=== PATIENT | female | born 1935 | race Hispanic/Latino ===

== ENCOUNTER 2017-04-14 12:57 | Emergency (ER) | payer MEDICARE ==
[~2017-04-14] VITALS: Ht 157.5 cm; Wt 67.6 kg
[~2017-04-14 12:57] MED LIST: AMIODARONE HCL200 MG PO; AMLODIPINE BESYL5 MG PO; ASPIRIN EC81 MG PO; ATORVASTATIN CA10 MG PO; ATORVASTATIN CA20 MG PO; CLOPIDOGREL75 MG PO; FENOFIBRATE134 MG PO; FUROSEMIDE40 MG PO; ISOSORBIDE DINIT5 MG PO; LASIX40 MG PO; LEVEMIR 3M100 UNITS/ SQ; LOSARTAN POTASS25 MG PO; METFORMIN HCL850 MG PO; METOPROLOL TAR100 MG PO; METOPROLOL TART25 MG PO; NITRO-DUR1 EAC1 TOP; NOVOLOG MI100 UNIT/1 SQ; PANTOPRAZOLE SO40 MG PO; SIMVASTATIN20 MG PO; VASCEPA; VASCEPA 1 GRAM PO; VASOTEC10 MG PO
[2017-04-14 15:04] LABS: BILIRUBIN,URINE NEGATIVE (NEGATIVE); CLARITY,URINE CLEAR (CLEAR); COLOR,URINE YELLOW (YELLOW); KETONES,URINE NEGATIVE (NEGATIVE); LEUKOCYTE ESTERASE ,URINE NEGATIVE (NEGATIVE); NITRITE,URINE NEGATIVE (NEGATIVE); URINE UROBILINOGEN 1 mg/dL (0.2 - 1)
[2017-04-14 15:10] LABS: PROTEIN,URINE DIPSTICK 1+ (NEGATIVE); RBC,URINE 0-5 /HPF (0-5); WBC,URINE (MAN) 0-5 /HPF (0-5)
[2017-04-14 15:11] LABS: EPITHELIAL CELLS,URINE FEW /LPF; MUCUS,URINE FEW (RARE)
[2017-04-14 15:29] LABS: BASOPHILS % 0.2 % (0.0-1.0); EOSINOPHILS % 0.1 % (0.0-6.0); HEMATOCRIT 39.8 % (34.2-44.1); HEMOGLOBIN 12.8 g/dL (12.0-16.0); LYMPHOCYTES # (AUTO) 0.9 (1.0-3.2); LYMPHOCYTES % 5.7 % (18.0-39.1); MEAN CORPUSCULAR HEMOGLOBIN 27.5 pg (28-32); MEAN CORPUSCULAR HGB CONC 32.2 g/dL (31-35); MEAN CORPUSCULAR VOLUME 85.4 fL (81-99); MONOCYTES # (AUTO) 0.7 (0.2-0.8); MONOCYTES % 4.2 % (4.4-11.3); NEUTROPHILS # (AUTO) 14.4 (2.1-6.9); NEUTROPHILS % 89.2 % (38.7-80.0); PLATELET COUNT 234 x10e3/uL (140-360); RED BLOOD COUNT 4.66 x10e6/uL (3.6-5.1); RED CELL DISTRIBUTION WIDTH 15.9 % (11.7-14.4)
[2017-04-14 15:43] LABS: PARTIAL THROMBOPLASTIN TIME 29.9 seconds (23.8-35.5); PROTHROMBIN TIME 13.7 seconds (11.9-14.5)
--- NOTE | 2017-04-14 15:44 | Diagnostic Imaging Report ---
Portable chest x-ray CPT code 60172 INDICATION: Chest pain, dizziness COMPARISON: Chest x-ray 06/05/2016 FINDINGS: Frontal view of the chest obtained at 1510 hours. The cardiac silhouette is enlarged and stable in morphology with dual-lead pacemaker wires and postoperative changes from bypass. The pulmonary vascular markings are prominent. The lungs demonstrate low lung volumes. Mild eventration of the right diaphragm is stable. The left diaphragm is poorly visualized. No airspace opacities in the upper lung zones. No large effusions. No pneumothorax. The osseous structures are stable. IMPRESSION: 1. Pulmonary vascular congestion. 2. Stable cardiomegaly, postoperative changes, and pacemaker. 3. Stable eventration of the right diaphragm. Retrocardiac airspace disease can be due to atelectasis or infiltrate. A small effusion cannot be excluded. Signed by: Dr. Suma Vanegas MD on 04/14/2017 3:40 PM
--- NOTE | 2017-04-14 15:45 | Diagnostic Imaging Report ---
Examination: CT BRAIN WITHOUT CONTRAST History:Dizziness. Nausea. Comparison studies:None Technique: Axial images were obtained from the skull base to the vertex. Coronal and sagittal images reconstructed from the axial data. Intravenous contrast: None Findings: Scalp: No abnormalities. Bones: No fractures, blastic or lytic lesions. Brain sulci: Mild volume loss for age. Ventricles: No hydrocephalus. Extra-axial space: No abnormalities. Parenchyma: Chronic lacunar infarcts in the anterior limb of the right internal capsule, left putamen and bilateral subinsular cortices. There are confluent areas of hypoattenuation in the periventricular and subcortical white matter, nonspecific. No masses, hemorrhage, or acute or chronic cortical based vascular insults. Sellar/suprasellar region: No abnormalities. Craniocervical junction: Patent foramen magnum. No Chiari one malformation. Incidental findings: Atherosclerotic calcification of the cavernous and supraclinoid internal carotid arteries. Impression: 1. No acute intracranial abnormalities. 2. Chronic lacunar infarcts, as above. 3. Mild chronic microvascular ischemic change and volume loss. Signed by: Dr. Brittany Díaz M.D. on 04/14/2017 3:41 PM
[2017-04-14] MEDS ORDERED: FUROSEMIDE INJ 10 MG/ML 4 ML VIAL IV ONE (18:30)
[2017-04-14 19:19] LABS: ALBUMIN 3.8 g/dL (3.5-5.0); ANION GAP 13.2 mmol/L (8-16); CALCIUM 8.9 mg/dL (8.4-10.2); CREATININE, SERUM 1.47 mg/dL (0.57-1.11)
[2017-04-14 19:22] LABS: POTASSIUM 5.2 mmol/L (3.5-5.1)
[2017-04-14 19:26] LABS: CREATINE KINASE MB 3.4 ng/mL (0.00-5.00); TROPONIN I 0.033 ng/mL (0-0.300)
[2017-04-14 19:50] VITALS: BP 172/69
== END 2017-04-14 20:19 | disposition home or self-care (01) ==
LOC: ER 12:57
DX: R06.09 Other forms of dyspnea (principal); I50.1 Left ventricular failure, unspecified; I27.9 Pulmonary heart disease, unspecified; I10 Essential (primary) hypertension; E11.9 Type 2 diabetes mellitus without complications; I25.10 Atherosclerotic heart disease of native coronary artery without angina pectoris
CPT/HCPCS: 36415; 70450; 71010; 80053; 81001; 82550; 82553; 83880; 84484; 85025; 85610; 85730; 87086; 93005; 99284; J1940

== ENCOUNTER 2017-04-18 17:01 | Inpatient (IN) | payer MEDICARE ==
[~2017-04-18] VITALS: Ht 157.5 cm; Wt 66.2 kg
[2017-04-18 18:16] LABS: BILIRUBIN,URINE NEGATIVE (NEGATIVE); KETONES,URINE NEGATIVE (NEGATIVE); LEUKOCYTE ESTERASE ,URINE 1+ (NEGATIVE); NITRITE,URINE NEGATIVE (NEGATIVE); PROTEIN,URINE DIPSTICK NEGATIVE (NEGATIVE); URINE UROBILINOGEN 0.2 mg/dL (0.2 - 1)
--- NOTE | 2017-04-18 18:22 | Diagnostic Imaging Report ---
PROCEDURE: X-RAY CHEST, ONE VIEW 1810 hrs. COMPARISON: Chest x-ray 04/14/17 INDICATIONS: CHEST PAIN FINDINGS: LUNGS: Eventration of the right diaphragm is stable. Baseline pulmonary hyperinflation is similar with diffuse bronchial wall thickening. Pulmonary vascular markings are prominent and similar to previous exam. There is no evidence of confluent infiltrate. There is mild interstitial edema. The left diaphragm is now visible. PLEURA: Mild blunting of the right lateral costophrenic angle. No pneumothorax. HEART \T\ MEDIASTINUM: Stable cardiomegaly and pacemaker. Stent in the upper mediastinum is stable. BONES \T\ SOFT TISSUES: Median sternotomy wires are intact. No new focal osseous lesions. Soft tissues are unremarkable. CONCLUSION: Stable cardiomegaly and pulmonary vascular congestion. Small right pleural effusion. Mild interstitial edema. Stable eventration of the right diaphragm. Dictated by: Suma Vanegas M.D. on 04/18/2017 at 18:30 Electronically approved by: Suma Vanegas M.D. on 04/18/2017 at 18:30
[2017-04-18 18:24] LABS: BASOPHILS % 0.3 % (0.0-1.0); EOSINOPHILS # (AUTO) 0.1 (0.0-0.4); EOSINOPHILS % 0.4 % (0.0-6.0); HEMATOCRIT 38.8 % (34.2-44.1); HEMOGLOBIN 12.2 g/dL (12.0-16.0); MEAN CORPUSCULAR HEMOGLOBIN 27.5 pg (28-32); MEAN CORPUSCULAR HGB CONC 31.4 g/dL (31-35); MEAN CORPUSCULAR VOLUME 87.4 fL (81-99); MONOCYTES # (AUTO) 1.1 (0.2-0.8); MONOCYTES % 7.2 % (4.4-11.3); NEUTROPHILS # (AUTO) 13.5 (2.1-6.9); NEUTROPHILS % 84.9 % (38.7-80.0); PLATELET COUNT 266 x10e3/uL (140-360); RED BLOOD COUNT 4.44 x10e6/uL (3.6-5.1)
[2017-04-18 18:33] LABS: INR 1.12
[2017-04-18 18:34] LABS: PARTIAL THROMBOPLASTIN TIME 35.4 seconds (23.8-35.5)
[2017-04-18 18:36] LABS: CLARITY,URINE CLEAR (CLEAR); COLOR,URINE YELLOW (YELLOW)
[2017-04-18 18:46] LABS: BACTERIA,URINE FEW /HPF; EPITHELIAL CELLS,URINE FEW /LPF; RBC,URINE 0-5 /HPF (0-5)
[2017-04-18 19:20] LABS: ALBUMIN 3.9 g/dL (3.5-5.0); ANION GAP 18.3 mmol/L (8-16); CALCIUM 8.9 mg/dL (8.4-10.2); CREATININE, SERUM 2.64 mg/dL (0.57-1.11)
[2017-04-18 19:23] LABS: POTASSIUM 6.3 mmol/L (3.5-5.1)
[2017-04-18 19:31] LABS: CREATINE KINASE MB 3.4 ng/mL (0.00-5.00); TROPONIN I 0.05 ng/mL (0-0.300)
[2017-04-19] MEDS ORDERED: CALCIUM CHLORIDE 10% 1.36 MEQ/ML 10ML SYR IV STA (00:20)
[2017-04-19] MEDS ORDERED: DEXTROSE 50% SYRINGE 50 ML IV STA (00:20)
[2017-04-19] MEDS ORDERED: SODIUM BICARBONATE 8.4% INJ 50 ML SYR IV STA (00:20)
[2017-04-19] MEDS ORDERED: ONDANSETRON HCL INJ 2 MG/ML VIAL IV STA (00:25)
[2017-04-19] MEDS ORDERED: CEFTRIAXONE SOD 1 GM VIAL IV STA (00:25)
[2017-04-19] MEDS ORDERED: FUROSEMIDE INJ 10 MG/ML 10 ML VIAL IV ONE (00:30)
[2017-04-19] MEDS ORDERED: INSULIN REGULAR, HUMAN 100 UNIT/1 ML 3ML VIAL IV ONE (00:30)
[2017-04-19] MEDS ORDERED: DEXTROSE 50% SYRINGE 50 ML IV PRN (00:45)
[2017-04-19] MEDS ORDERED: SODIUM CHLORIDE 0.9% 50ML 50 ML ONE (01:18)
[2017-04-19] MEDS: CEFTRIAXONE SOD 1 GM VIAL IV SCH (02:21)
[2017-04-19 04:40] VITALS: BP 125/56
[2017-04-19 04:45] VITALS: BP 125/56
[2017-04-19 04:52] LABS: CREATINE KINASE MB 2.2 ng/mL (0.00-5.00); TROPONIN I 0.044 ng/mL (0-0.300)
[2017-04-19] MEDS ORDERED: FUROSEMIDE INJ 10 MG/ML 4 ML VIAL IV SCH (06:00)
[2017-04-19] MEDS ORDERED: LEVOTHYROXINE50 MCG PO (07:11)
[2017-04-19] MEDS ORDERED: MECLIZINE HCL12.5 MG PO (07:11)
[2017-04-19] MEDS: INSULIN REGULAR, HUMAN 100 UNIT/1 ML 3ML VIAL SQ SCH ×4 (07:30→21:04)
[2017-04-19 07:51] VITALS: BP 142/61
[2017-04-19 08:51] LABS: POTASSIUM 5.5 mmol/L (3.5-5.1)
[2017-04-19 09:24] LABS: ALBUMIN 3.5 g/dL (3.5-5.0); ANION GAP 18.5 mmol/L (8-16); CALCIUM 9.1 mg/dL (8.4-10.2); CREATININE, SERUM 2.53 mg/dL (0.57-1.11)
[2017-04-19 09:35] LABS: HEMOGLOBIN 10.7 g/dL (12.0-16.0); MEAN CORPUSCULAR HEMOGLOBIN 27.7 pg (28-32); MEAN CORPUSCULAR HGB CONC 31.5 g/dL (31-35); MEAN CORPUSCULAR VOLUME 88.1 fL (81-99); PLATELET COUNT 195 x10e3/uL (140-360); RED BLOOD COUNT 3.86 x10e6/uL (3.6-5.1); RED CELL DISTRIBUTION WIDTH 16.1 % (11.7-14.4)
[2017-04-19 11:42] LABS: ANION GAP 17.6 mmol/L (8-16); CREATININE, SERUM 2.42 mg/dL (0.57-1.11); POTASSIUM 5.6 mmol/L (3.5-5.1)
[2017-04-19 11:50] LABS: CREATINE KINASE MB 1.7 ng/mL (0.00-5.00); TROPONIN I 0.048 ng/mL (0-0.300)
[2017-04-19] MEDS ORDERED: SOD POLYSTYRENE SULFONATE SUSP 15 GM/60 ML BTL PR ONE (12:00)
[2017-04-19 12:27] LABS: EOSINOPHILS % (MANUAL) 2 % (0-7); LYMPHOCYTES % (MANUAL) 9 % (19-48); MONOCYTES % (MANUAL) 3 % (3.4-9.0); NEUTROPHILS % (MANUAL) 86 % (40-74); RBC MORPHOLOGY COMMENT NORMAL
[2017-04-19 12:28] LABS: PLATELET ESTIMATE ADEQUATE; PLATELET MORPHOLOGY COMMENT NORMAL
--- NOTE | 2017-04-19 12:32 | History and Physical ---
CHIEF COMPLAINT: Fluid overload with elevated potassium, acute kidney injury on chronic kidney disease, urinary tract infection, and generalized weakness. HISTORY OF PRESENT ILLNESS: This is a 81-year-old female with history of coronary artery bypass surgery who came into the hospital because of increasing shortness of breath for the past for 7 days. She stated that she was having progressive shortness of breath. The patient also has hypoxia with oxygen saturation below 90%. She at baseline with systolic congestive heart failure. She had AICD. She also had recent coronary artery bypass surgery. The patient is stable. In the emergency room, lab work showed her white cell count was 15.8 thousand. She had a chemistry panel with low sodium of 128 and potassium of 6.3. BUN and creatinine were 49 and 2.6 respectively. The patient also had 1+ leukocyte esterase with WBCs in the urine. Her imaging in the emergency room showed that she has pleural effusion and interstitial edema. The patient is stable, admitted and Lopez catheter in place. PAST MEDICAL HISTORY: Diabetes type 2, hypertension with congestive heart failure, history of AL and bypass surgery, coronary artery disease, hyperlipidemia, cardiomyopathy and hypothyroidism. HOME MEDICATIONS: Amiodarone, Lipitor, furosemide, levothyroxine, losartan, meclizine, metoprolol tartrate and . PAST SURGICAL HISTORY: AICD. Coronary artery bypass surgery. Coronary stent. Left salpingo-oophorectomy. SOCIAL HISTORY: Patient does not smoke or use alcohol. No recreational drugs. ALLERGIES: NO KNOWN DRUG ALLERGIES. PHYSICAL EXAMINATION: GENERAL: The patient is not in acute distress. He is awake. VITAL SIGNS: Temperature is 98. Blood pressure 142/61. Pulse rate 60. Respirations 18. HEENT: Normocephalic, atraumatic, anicteric. NECK: Positive JVD. PULMONARY: Bilateral rales at the bases. Sternal scar. AICD. ABDOMEN: Soft and unremarkable. EXTREMITIES: 1+ edema. NEUROLOGIC: No focal deficit. LABORATORY: Sodium is 128. Potassium 3.3, chloride 99, bicarb 37, BUN 29, creatinine 2.6. Glucose is 250. Coagulation: INR is 1.1. CBC: WBC 16, hemoglobin 12, hematocrit 38, platelets 266,00. Urinalysis with 1+ leukocyte esterase. Chest x-ray showed interstitial edema. IMPRESSION: 1. Acute on chronic systolic dysfunction. Congestive heart failure. 2. Urinary tract infection. 3. Acute kidney injury with hyperkalemia associated with chronic kidney disease, stage not know. 4. Multiple chronic baseline problems including coronary artery disease with recent coronary artery bypass surgery, AICD placement. PLAN: 1. Antibiotics. 2. Diurese the patient. 3. Home medication adjustment. Adjust medication to prevent recurrent high potassium. 4. Monitor the patient closely. 5. DVT prophylaxis. 6. Home medications revised. 1. Incentive spirometry. 8. Monitor the patient's oxygen saturation. Job#: [id number] GH
[2017-04-19] MEDS ORDERED: LACTULOSE SYRUP 20 GM/30 ML UDC PO ONE (12:45)
[2017-04-19] MEDS ORDERED: SOD POLYSTYRENE SULFONATE SUSP 15 GM/60 ML BTL PO ONE (12:45)
[2017-04-19 13:08] VITALS: BP 125/61
[2017-04-19] MEDS: FUROSEMIDE INJ 10 MG/ML 4 ML VIAL IV SCH ×2 (14:00→21:04)
[2017-04-19] MEDS: MECLIZINE HCL 12.5 MG TAB PO SCH ×2 (15:00→21:03)
[2017-04-19] MEDS: AMIODARONE HCL 200 MG TAB PO SCH (17:00)
[2017-04-19] MEDS: METOPROLOL TARTRATE 25 MG TAB PO SCH (17:00)
[2017-04-19 17:34] VITALS: BP 107/52
[2017-04-19 20:00] VITALS: BP 126/58
[2017-04-19] MEDS: ATORVASTATIN 10 MG TAB PO SCH (21:03)
[2017-04-20] VITALS: BP_SYST 114; BP_SYST 137; BP_DIAS 53; BP_DIAS 61
[2017-04-20] MEDS: CEFTRIAXONE SOD 1 GM VIAL IV SCH (01:47)
[2017-04-20] MEDS: LEVOTHYROXINE SODIUM 50 MCG TAB PO SCH (05:48)
[2017-04-20] MEDS: FUROSEMIDE INJ 10 MG/ML 4 ML VIAL IV SCH ×3 (05:48→22:11)
[2017-04-20] MEDS: INSULIN REGULAR, HUMAN 100 UNIT/1 ML 3ML VIAL SQ SCH ×4 (07:30→22:12)
[2017-04-20 07:45] LABS: BASOPHILS % 0.4 % (0.0-1.0); EOSINOPHILS # (AUTO) 0.2 (0.0-0.4); EOSINOPHILS % 1.9 % (0.0-6.0); HEMATOCRIT 32.5 % (34.2-44.1); HEMOGLOBIN 10.3 g/dL (12.0-16.0); LYMPHOCYTES # (AUTO) 0.8 (1.0-3.2); LYMPHOCYTES % 9.1 % (18.0-39.1); MEAN CORPUSCULAR HEMOGLOBIN 27.4 pg (28-32); MEAN CORPUSCULAR HGB CONC 31.7 g/dL (31-35); MEAN CORPUSCULAR VOLUME 86.4 fL (81-99); MONOCYTES % 10.8 % (4.4-11.3); NEUTROPHILS # (AUTO) 7.2 (2.1-6.9); NEUTROPHILS % 77.2 % (38.7-80.0); PLATELET COUNT 215 x10e3/uL (140-360); RED BLOOD COUNT 3.76 x10e6/uL (3.6-5.1); RED CELL DISTRIBUTION WIDTH 15.9 % (11.7-14.4)
[2017-04-20 08:00] VITALS: BP 119/58
[2017-04-20 08:28] LABS: ALBUMIN 3.1 g/dL (3.5-5.0); ANION GAP 16.8 mmol/L (8-16); CREATININE, SERUM 2.65 mg/dL (0.57-1.11); POTASSIUM 3.8 mmol/L (3.5-5.1)
[2017-04-20] MEDS: MECLIZINE HCL 12.5 MG TAB PO SCH ×3 (09:04→22:11)
[2017-04-20] MEDS: AMIODARONE HCL 200 MG TAB PO SCH ×2 (09:04→16:28)
[2017-04-20] MEDS: METOPROLOL TARTRATE 25 MG TAB PO SCH ×2 (09:10→16:28)
[2017-04-20 10:50] VITALS: BP 119/58
--- NOTE | 2017-04-20 13:53 | Consultation ---
DATE OF CONSULTATION: April 19, 2017 HISTORY OF PRESENT ILLNESS: Patient is known to me. She is a 65-year-old female with underlying history of chronic kidney disease stage 3, history of metabolic acidosis, distal renal tubular acidosis, history of thrombocytopenia, hypertension and type 2 diabetes. Renal consult for management of acute kidney injury and hyperkalemia. She was on losartan at home and also on metoprolol, amiodarone and atorvastatin. She is currently comfortable. Denies any nausea, vomiting, fever, chills, chest pain, shortness of breath. She has had previous hyponatremia and xwrln-vq-idfcexw kidney failure in the past. Has underlying history of diabetes, hypertension and chronic kidney disease stage 3, history of congestive heart failure, history of prior coronary artery bypass surgery. ALLERGIES: NO APPARENT DRUG ALLERGIES. CURRENT MEDICATIONS: Patient is on ondansetron, p.r.n. lactulose, p.r.n. levothyroxine 25 mcg daily, insulin, Lasix 80 IV q.8 which has been stopped, received 1 dose of Lasix earlier, ceftriaxone 1 gram q.24. Atorvastatin, amiodarone 100 mg p.o. b.i.d. For dose schedule please see MAR. FAMILY HISTORY: Significant for hypertension and diabetes. SOCIAL HISTORY: Does not smoke or drink. Current labs: White count 13.9. Hemoglobin 10.7. Sodium 131. Potassium 5.6. Bicarbonate 20. Creatinine 2.42. Glucose 350. She had the last BNP of 2124 on 04/18. Workup included chest x-ray. Please see official report PHYSICAL EXAMINATION: GENERAL: Awake, alert and lying supine. No apparent distress. VITALS: Has a blood pressure of 107/52, pulse rate 60, afebrile, O2 saturation 96% on room air with respiratory rate 20. HEAD AND NECK: Cornea clear. Mucosa dry. LUNGS: Decreased air entry right lower zone, otherwise relatively clear. No rales. HEART: S1 and S2 audible. ABDOMEN: Soft. LOWER EXTREMITY EXAMINATION: No edema. IMPRESSION 1. Hyperkalemia. 2. Distal tubular acidosis. 3. Okyen-tf-lhgtnco kidney failure. PLAN: Plan on giving Kayexalate, lactulose. Will place on a renal diet. No oranges or bananas. Will hold off on losartan. Gentle diuresis. Fluid restriction. Please see orders. Job#: [id number] GH
[2017-04-20 16:39] VITALS: BP 123/59
[2017-04-20 20:00] VITALS: BP 107/54
[2017-04-20] MEDS: ATORVASTATIN 10 MG TAB PO SCH (22:11)
[2017-04-21] VITALS: BP 130/57
[2017-04-21] MEDS: CEFTRIAXONE SOD 1 GM VIAL IV SCH (00:59)
[2017-04-21 04:00] VITALS: BP 117/57
[2017-04-21] MEDS: LEVOTHYROXINE SODIUM 50 MCG TAB PO SCH (05:52)
[2017-04-21] MEDS: FUROSEMIDE INJ 10 MG/ML 4 ML VIAL IV SCH ×2 (05:52→12:36)
[2017-04-21 07:10] LABS: BASOPHILS % 0.4 % (0.0-1.0); EOSINOPHILS # (AUTO) 0.2 (0.0-0.4); EOSINOPHILS % 2.3 % (0.0-6.0); HEMATOCRIT 31.2 % (34.2-44.1); HEMOGLOBIN 9.8 g/dL (12.0-16.0); LYMPHOCYTES # (AUTO) 1.1 (1.0-3.2); LYMPHOCYTES % 11.1 % (18.0-39.1); MEAN CORPUSCULAR HEMOGLOBIN 27.1 pg (28-32); MEAN CORPUSCULAR HGB CONC 31.4 g/dL (31-35); MEAN CORPUSCULAR VOLUME 86.4 fL (81-99); MONOCYTES % 10.2 % (4.4-11.3); NEUTROPHILS # (AUTO) 7.4 (2.1-6.9); NEUTROPHILS % 75.6 % (38.7-80.0); PLATELET COUNT 205 x10e3/uL (140-360); RED BLOOD COUNT 3.61 x10e6/uL (3.6-5.1); RED CELL DISTRIBUTION WIDTH 15.9 % (11.7-14.4)
[2017-04-21 07:35] LABS: ANION GAP 18.9 mmol/L (8-16); CALCIUM 8.1 mg/dL (8.4-10.2); CREATININE, SERUM 2.64 mg/dL (0.57-1.11); POTASSIUM 3.9 mmol/L (3.5-5.1)
[2017-04-21 08:00] VITALS: BP 121/56
[2017-04-21] MEDS: MECLIZINE HCL 12.5 MG TAB PO SCH ×3 (09:00→21:00)
[2017-04-21] MEDS: METOPROLOL TARTRATE 25 MG TAB PO SCH ×2 (09:00→15:43)
[2017-04-21] MEDS: AMIODARONE HCL 200 MG TAB PO SCH ×2 (09:15→17:01)
[2017-04-21] MEDS: INSULIN REGULAR, HUMAN 100 UNIT/1 ML 3ML VIAL SQ SCH ×4 (09:15→21:00)
[2017-04-21 11:45] VITALS: BP 115/61
[2017-04-21 15:57] VITALS: BP 123/63
[2017-04-21 20:00] VITALS: BP 137/71
[2017-04-21] MEDS: ATORVASTATIN 10 MG TAB PO SCH (21:00)
[2017-04-22] VITALS (7 sets, daily range): BP systolic 101–145; BP diastolic 55–80
[2017-04-22] MEDS: WATER STERILE 10 ML VIAL INJ PRN (01:00)
[2017-04-22] MEDS: CEFTRIAXONE SOD 1 GM VIAL IV SCH (01:27)
[2017-04-22] MEDS: LEVOTHYROXINE SODIUM 50 MCG TAB PO SCH (06:17)
[2017-04-22 06:20] LABS: BASOPHILS % 0.4 % (0.0-1.0); EOSINOPHILS # (AUTO) 0.2 (0.0-0.4); EOSINOPHILS % 2.1 % (0.0-6.0); HEMATOCRIT 31.8 % (34.2-44.1); HEMOGLOBIN 10.1 g/dL (12.0-16.0); LYMPHOCYTES # (AUTO) 1.1 (1.0-3.2); LYMPHOCYTES % 10.6 % (18.0-39.1); MEAN CORPUSCULAR HEMOGLOBIN 26.9 pg (28-32); MEAN CORPUSCULAR HGB CONC 31.8 g/dL (31-35); MEAN CORPUSCULAR VOLUME 84.8 fL (81-99); MONOCYTES # (AUTO) 0.9 (0.2-0.8); MONOCYTES % 8.8 % (4.4-11.3); NEUTROPHILS # (AUTO) 7.7 (2.1-6.9); NEUTROPHILS % 76.5 % (38.7-80.0); PLATELET COUNT 212 x10e3/uL (140-360); RED BLOOD COUNT 3.75 x10e6/uL (3.6-5.1); RED CELL DISTRIBUTION WIDTH 15.8 % (11.7-14.4)
[2017-04-22 06:47] LABS: ANION GAP 17.8 mmol/L (8-16); CALCIUM 8.4 mg/dL (8.4-10.2); CREATININE, SERUM 2.33 mg/dL (0.57-1.11); POTASSIUM 3.8 mmol/L (3.5-5.1)
[2017-04-22] MEDS: FUROSEMIDE INJ 10 MG/ML 4 ML VIAL IV SCH ×2 (07:45→12:09)
[2017-04-22] MEDS: MECLIZINE HCL 12.5 MG TAB PO SCH ×3 (07:45→21:57)
[2017-04-22] MEDS: SODIUM BICARBONATE 650 MG TAB PO SCH ×2 (07:45→17:07)
[2017-04-22] MEDS: INSULIN REGULAR, HUMAN 100 UNIT/1 ML 3ML VIAL SQ SCH ×4 (07:45→21:58)
[2017-04-22] MEDS: METOPROLOL TARTRATE 25 MG TAB PO SCH ×2 (07:45→16:59)
[2017-04-22] MEDS: AMIODARONE HCL 200 MG TAB PO SCH ×2 (07:45→17:07)
[2017-04-22] MEDS ORDERED: ACETAMINOPHEN 325 MG TAB PO PRN (09:30)
[2017-04-22] MEDS: ATORVASTATIN 10 MG TAB PO SCH (21:57)
[2017-04-23] MEDS: CEFTRIAXONE SOD 1 GM VIAL IV SCH (01:02)
[2017-04-23] MEDS: WATER STERILE 10 ML VIAL INJ PRN (01:02)
[2017-04-23 01:43] VITALS: BP 111/52
[2017-04-23] MEDS: LEVOTHYROXINE SODIUM 50 MCG TAB PO SCH (05:22)
[2017-04-23 06:55] LABS: ANION GAP 18.7 mmol/L (8-16); CALCIUM 8.5 mg/dL (8.4-10.2); CREATININE, SERUM 1.92 mg/dL (0.57-1.11); POTASSIUM 3.7 mmol/L (3.5-5.1)
[2017-04-23 07:16] VITALS: BP 126/68
[2017-04-23 08:00] VITALS: BP 144/72
[2017-04-23] MEDS: INSULIN REGULAR, HUMAN 100 UNIT/1 ML 3ML VIAL SQ SCH ×2 (08:00→12:20)
[2017-04-23] MEDS: METOPROLOL TARTRATE 25 MG TAB PO SCH (08:39)
[2017-04-23] MEDS: AMIODARONE HCL 200 MG TAB PO SCH (08:39)
[2017-04-23] MEDS: MECLIZINE HCL 12.5 MG TAB PO SCH (08:39)
[2017-04-23] MEDS: SODIUM BICARBONATE 650 MG TAB PO SCH (08:39)
[2017-04-23] MEDS: FUROSEMIDE INJ 10 MG/ML 4 ML VIAL IV SCH ×2 (08:39→12:00)
--- NOTE | 2017-04-23 11:58 | Discharge Summary ---
PCP: Dr. Randal Lopez FRONT END SPECIALIST: Dr. Catrina Chicas FINAL DIAGNOSES 1. Ayigh-yi-kgrrrkj systolic dysfunction congestive heart failure. Ejection fraction of approximately 30%. 2. Hyperkalemia, most likely medication induced. 3. Chronic kidney disease, stage 3. SUMMARY: Patient is a 81-year-old female who came in with multiple problems. Her urinary tract infection otherwise is stable. The patient had mild infection of the urine with leukocyte esterase 1+. Wbcs were only 20. Very few bacteria. Micro was otherwise negative. More importantly, when the patient presented to the hospital her potassium level was 6.3. The patient's potassium now is 3.7. She has been receiving IV furosemide. She is doing much better now. She is stable. Chest x-ray showed vascular congestion. The patient is stable at this time. She is comfortable. Adjustment of her medications were made. She will go home today with the following instructions: 1. She will discontinue amiodarone 200 mg. 2. Lasix 40 mg once a day. 3. Losartan 25 mg. 4. . 5. She will continue with Lipitor 10 mg at night. 6. Levothyroxine 25 mcg daily. 7. Meclizine t.i.d. as needed. 8. Metoprolol tartrate 25 mg b.i.d. New prescriptions are Glucotrol XL 5 mg daily, Lasix 40 mg twice a day, and amiodarone 100 mg twice a day. The patient is stable and discharged home today. Follow up Dr. Chicas and Dr. 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 The patient expressed understanding. She will be discharged home today. Job#: [id number] [place]
[2017-04-23 12:00] VITALS: BP 112/61
== END 2017-04-23 14:17 | disposition home or self-care (01) | DRG 291 ==
LOC: ER 17:01 → ERHOLD 04-19 00:45 → MED/SURG2 04-19 03:51
PROVIDERS: ADMIT Internal Medicine; ATTEND Internal Medicine
DX: I13.0 Hypertensive heart and chronic kidney disease with heart failure and stage 1 through stage 4 chronic kidney disease, or unspecified chronic kidney disease (principal); I50.23 Acute on chronic systolic (congestive) heart failure; N17.9 Acute kidney failure, unspecified; N39.0 Urinary tract infection, site not specified; E11.22 Type 2 diabetes mellitus with diabetic chronic kidney disease; N18.3 Chronic kidney disease, stage 3 (moderate); E87.5 Hyperkalemia; T50.905A Adverse effect of unspecified drugs, medicaments and biological substances, initial encounter; I25.10 Atherosclerotic heart disease of native coronary artery without angina pectoris; N25.89 Other disorders resulting from impaired renal tubular function; E03.9 Hypothyroidism, unspecified; Z79.52 Long term (current) use of systemic steroids; I25.2 Old myocardial infarction; Z95.810 Presence of automatic (implantable) cardiac defibrillator; Z95.5 Presence of coronary angioplasty implant and graft; Z95.1 Presence of aortocoronary bypass graft
CPT/HCPCS: 36415; 71010; 80048; 80053; 81001; 82550; 82553; 82948; 83880; 84484; 85007; 85025; 85027; 85610; 85730; 93005; 93306; 99284; J0696; J1940; J2405; J7799

== ENCOUNTER 2017-05-16 16:45 | Inpatient (IN) | payer MEDICARE ==
[~2017-05-16] VITALS: Ht 157.5 cm; Wt 74.6 kg
[~2017-05-16 16:45] MED LIST changes: +LEVOTHYROXINE50 MCG PO; +MECLIZINE HCL12.5 MG PO
--- OUTSIDE RECORDS SUMMARY | 2017-05-16 16:49 | XMS REPORT ---
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 Allergies, Adverse Reactions, Alerts This patient has no known allergies or adverse reactions. Medications This patient has no known medications. Results Test Description Test Time Test Comments Text Results Atomic Results Result Comments CHEST SINGLE (NOT PORTABLE) [place] [address] Patient Name: LYUDMILA JONES MR #: [id number] : 1935 Age/Sex: 81/F Req #: [id number] Adm Physician: Ordered by: LEIGH MORELAND MD Report #: [id number] Location: ER Room/Bed: Procedure: [id number] DX/CHEST SINGLE (NOT PORTABLE) Exam Date: 04/18/17 Exam Time: 1805 REPORT STATUS: Signed PROCEDURE: X -RAY CHEST, ONE VIEW 1810 hrs. COMPARISON: Chest x-ray 04/14/17 INDICATIONS: CHEST PAIN FINDINGS: LUNGS: Eventration of the right diaphragm is stable. Baseline pulmonary hyperinflation is similar with diffuse bronchial wall thickening. Pulmonary vascular markings are prominent and similar to previous exam. There is no evidence of confluent infiltrate. There is mild interstitial edema. The left diaphragm is now visible. PLEURA: Mild blunting of the right lateral costophrenic angle. No pneumothorax. HEART T MEDIASTINUM: Stable cardiomegaly and pacemaker. Stent in the upper mediastinum is stable. BONES T SOFT TISSUES: Median sternotomy wires are intact. No new focal osseous lesions. Soft tissues are unremarkable. CONCLUSION: Stable cardiomegaly and pulmonary vascular congestion. Small right pleural effusion. Mild interstitial edema. Stable eventration of the right diaphragm. Dictated by: Sammy Vanegas M.D. on 04/18/2017 at 18:30 Electronically approved by: Sammy Vanegas M.D. on 04/18/2017 at 18:30 Dictated By: SAMMY VANEGAS MD 29 Transcribed By: SCOTTIE on 04/18/171829 COPY TO: LEIGH MORELAND MD CT BRAIN WO [place] [address] Patient Name: LYUDMILA JONES MR #: [id number] : 1935 Age/Sex: 81/F Req #: [id number] Adm Physician: Ordered by: DERREK HA MD Report #: [id number] Location: ER Room/Bed: Procedure: [id number] CT/CT BRAIN WO Exam Date: 04/14/17 Exam Time: 1510 REPORT STATUS: Signed Examination: CT BRAIN WITHOUT CONTRAST History:Dizziness. Nausea. Comparison studies:None Technique: Axial images were obtained from the skull base to the vertex. Coronal and sagittal images reconstructed from the axial data. Intravenous contrast: None Findings: Scalp: No abnormalities. Bones: No fractures, blastic or lytic lesions. Brain sulci: Mild volume loss for age. Ventricles: No hydrocephalus. Extra-axial space: No abnormalities. Parenchyma: Chronic lacunar infarcts in the anterior limb of the right internal capsule, left putamen and bilateral subinsular cortices. There are confluent areas of hypoattenuation in the periventricular and subcortical white matter, nonspecific. No masses, hemorrhage, or acute or chronic cortical based vascular insults. Sellar/suprasellar region: No abnormalities. Craniocervical junction: Patent foramen magnum. No Chiari one malformation. Incidental findings: Atherosclerotic calcification of the cavernous and supraclinoid internal carotid arteries. Impression: 1. No acute intracranial abnormalities. 2. Chronic lacunar infarcts, as above. 3. Mild chronic microvascular ischemic change and volume loss. Signed by: Dr. Brittany Díaz M.D. on 04/14/2017 3:41 PM Dictated By: BRITTANY DRIVER MD 154 COPY TO: DERREK HA MD CHEST SINGLE (NOT PORTABLE) [place] [address] Patient Name: LYUDMILA JONES MR #: [id number] : 1935 Age/Sex: 81/F Req #: [id number] Adm Physician: Ordered by: DERREK HA MD Report #: [id number] Location: ER Room/Bed: Procedure: [id number] DX/CHEST SINGLE (NOT PORTABLE) Exam Date: 04/14/17 Exam Time: 1510 REPORT STATUS: Signed Portable chest x-ray CPT code 56203 INDICATION: Chest pain, dizziness COMPARISON: Chest x-ray 06/05/2016 FINDINGS: Frontal view of the chest obtained at 1510 hours. The cardiac silhouette is enlarged and stable in morphology with dual-lead pacemaker wires and postoperative changes from bypass. The pulmonary vascular markings are prominent. The lungs demonstrate low lung volumes. Mild eventration of the right diaphragm is stable. The left diaphragm is poorly visualized. No airspace opacities in the upper lung zones. No large effusions. No pneumothorax. The osseous structures are stable. IMPRESSION: 1. Pulmonary vascular congestion. 2. Stable cardiomegaly, postoperative changes, and pacemaker. 3. Stable eventration of the right diaphragm. Retrocardiac airspace disease can be due to atelectasis or infiltrate. A small effusion cannot be excluded. Signed by: Dr. Sammy Vanegas MD on 04/14/2017 3:40 PM Dictated By: SAMMY VANEGAS MD 39 Transcribed By: EFREN on 04/14/171539 COPY TO: DERREK HA MD HIP RIGHT 2-3 VW (+/- PELVIS) [place] [address] Patient Name: LYUDMILA JONES MR #: [id number] : 1935 Age/Sex: 81/F Req #: [id number] Adm Physician: Ordered by: NESHA CASTRO Report #: [id number] Location: ER Room/Bed: Procedure: [id number] DX/HIP RIGHT 2-3 VW (+/- PELVIS) Exam Date: Exam Time: REPORT STATUS: Signed PROCEDURE: HIP RIGHT 2-3 VW (+/- PELVIS) COMPARISON: None. INDICATIONS: RIGHT HIP/GROIN PAIN, POST FALL FINDINGS: BONES: Decreased mineralization , which limits evaluation of the bony structures. Acute, mildly displaced fractures of the medial aspect of the right superior pubic ramus near the symphysis, as well as proximal and mid aspects of the right inferior pubic ramus. Other bony structures are intact. Sacral arches are preserved. Mild degenerative changes in bilateral hip and sacroiliac joints. Degenerative disc changes in the lower lumbosacral spine. SOFT TISSUES: Vascular calcifications. OTHER: Negative. CONCLUSION: 1. Decreased mineralization, which limits evaluation of the bony structures. 2. Acute, displaced fractures of the medial aspect of the right superior pubic ramus near the symphysis, as well as proximal and mid aspects of the right inferior pubic ramus. Cee Jane M.D. Dictated by : Cee Jane M.D. on 01/07/2017 at 19:00 Electronically approved by: Cee Jane M.D. on 01/07/2017 at 19:00 Dictated By : CEE JANE MD 99 Transcribed By: SCOTTIE on 01/07/171899 COPY TO: NESHA CASTRO
[2017-05-16 17:59] LABS: BASOPHILS % 0.3 % (0.0-1.0); EOSINOPHILS # (AUTO) 0.1 (0.0-0.4); HEMATOCRIT 38.8 % (34.2-44.1); HEMOGLOBIN 11.9 g/dL (12.0-16.0); LYMPHOCYTES # (AUTO) 1.1 (1.0-3.2); LYMPHOCYTES % 9.2 % (18.0-39.1); MEAN CORPUSCULAR HEMOGLOBIN 25.8 pg (28-32); MEAN CORPUSCULAR HGB CONC 30.7 g/dL (31-35); MONOCYTES # (AUTO) 0.7 (0.2-0.8); MONOCYTES % 6.3 % (4.4-11.3); NEUTROPHILS # (AUTO) 9.5 (2.1-6.9); NEUTROPHILS % 82.7 % (38.7-80.0); PLATELET COUNT 246 x10e3/uL (140-360); RED BLOOD COUNT 4.62 x10e6/uL (3.6-5.1); RED CELL DISTRIBUTION WIDTH 15.6 % (11.7-14.4)
[2017-05-16 18:14] LABS: ALBUMIN 4.1 g/dL (3.5-5.0); ALBUMIN/GLOBULIN RATIO 1.1 (0.8-2.0); ANION GAP 17.4 mmol/L (8-16); CALCIUM 8.5 mg/dL (8.4-10.2); CREATININE, SERUM 2.7 mg/dL (0.57-1.11); MAGNESIUM 2.9 MG/DL (1.3-2.1)
[2017-05-16 18:17] LABS: POTASSIUM 5.4 mmol/L (3.5-5.1)
--- NOTE | 2017-05-16 18:22 | Diagnostic Imaging Report ---
PROCEDURE: Frontal and lateral views of the chest. COMPARISON: Patients [facility], DX, CHEST SINGLE (NOT PORTABLE), 04/18/2017, 18:10. INDICATIONS: DYSPNEA, ORTHOPNEA 2 WEEKS FINDINGS: Lines/tubes: Stable left upper chest multilead device. Lungs: Lungs are well-inflated. Likely atelectatic changes in the right lower lung secondary to eventration of the right hemidiaphragm. No definite consolidation. Pleura: There is no pleural effusion or pneumothorax. Heart and mediastinum: Enlarged cardiac silhouette with central pulmonary venous congestion. Bones: No acute bony abnormality. IMPRESSION: 1. enlarged cardiac silhouette with central pulmonary venous congestion. Vj Jane M.D. Dictated by: Vj Jane M.D. on 05/16/2017 at 18:32 Electronically approved by: Vj Jane M.D. on 05/16/2017 at 18:32
[2017-05-16 18:52] LABS: CREATINE KINASE MB 6.9 ng/mL (0.00-5.00); THYROID STIMULATING HORMONE 5.913 uIU/mL (0.350-4.940)
[2017-05-16] MEDS ORDERED: LASIX40 MG PO (20:48)
[2017-05-16] MEDS ORDERED: AMIODARONE HCL200 MG PO (20:48)
[2017-05-16] MEDS ORDERED: FUROSEMIDE INJ 10 MG/ML 4 ML VIAL IV STA (21:16)
[2017-05-16] MEDS ORDERED: ONDANSETRON HCL INJ 2 MG/ML VIAL IV PRN (21:30)
[2017-05-16 22:06] LABS: INR 1.09; PROTHROMBIN TIME 14.7 seconds (11.9-14.5)
[2017-05-16 22:07] LABS: PARTIAL THROMBOPLASTIN TIME 31.2 seconds (23.8-35.5)
[2017-05-17 03:03] LABS: CREATINE KINASE MB 6.2 ng/mL (0.00-5.00)
[2017-05-17 05:39] LABS: BASOPHILS % 0.3 % (0.0-1.0); EOSINOPHILS # (AUTO) 0.2 (0.0-0.4); EOSINOPHILS % 2.6 % (0.0-6.0); HEMATOCRIT 35.4 % (34.2-44.1); HEMOGLOBIN 11.1 g/dL (12.0-16.0); LYMPHOCYTES # (AUTO) 1.1 (1.0-3.2); LYMPHOCYTES % 12.8 % (18.0-39.1); MEAN CORPUSCULAR HEMOGLOBIN 25.9 pg (28-32); MEAN CORPUSCULAR HGB CONC 31.4 g/dL (31-35); MEAN CORPUSCULAR VOLUME 82.7 fL (81-99); MONOCYTES # (AUTO) 0.7 (0.2-0.8); MONOCYTES % 8.1 % (4.4-11.3); NEUTROPHILS # (AUTO) 6.6 (2.1-6.9); NEUTROPHILS % 75.7 % (38.7-80.0); PLATELET COUNT 217 x10e3/uL (140-360); RED BLOOD COUNT 4.28 x10e6/uL (3.6-5.1)
[2017-05-17] MEDS ORDERED: DEXTROSE 50% SYRINGE 50 ML IV PRN (07:15)
[2017-05-17 07:24] LABS: ALBUMIN 3.6 g/dL (3.5-5.0); ALBUMIN/GLOBULIN RATIO 1.1 (0.8-2.0); CALCIUM 8.2 mg/dL (8.4-10.2); CHOL/HDL RATIO 2.9 (3.0-3.6); CREATININE, SERUM 2.37 mg/dL (0.57-1.11)
[2017-05-17] MEDS: INSULIN REGULAR, HUMAN 100 UNIT/1 ML 3ML VIAL SQ SCH ×4 (07:30→20:57)
[2017-05-17] MEDS ORDERED: FUROSEMIDE INJ 10 MG/ML 4 ML VIAL IV SCH (09:00)
[2017-05-17] MEDS ORDERED: ONDANSETRON HCL INJ 2 MG/ML VIAL IV PRN (11:00)
[2017-05-17] MEDS ORDERED: ACETAMINOPHEN 325 MG TAB PO PRN (11:00)
[2017-05-17 12:00] VITALS: BP 125/55
[2017-05-17] MEDS: FUROSEMIDE INJ 10 MG/ML 4 ML VIAL IV SCH ×2 (12:01→20:57)
[2017-05-17] MEDS: METOPROLOL TARTRATE 25 MG TAB PO SCH ×2 (12:01→16:42)
[2017-05-17] MEDS: ASPIRIN 81 MG ENTERIC COATED PO SCH (12:01)
[2017-05-17] MEDS: AMIODARONE HCL 200 MG TAB PO SCH ×3 (12:01→17:00)
--- NOTE | 2017-05-17 12:44 | History and Physical ---
CHIEF COMPLAINT: Shortness of breath and lower extremity edema. HISTORY OF PRESENT ILLNESS: This is a 81-year-old female who has been here several times before. She has a history of heart failure, chronic kidney disease, diabetes and hypertension who comes in with complaints of shortness of breath from her primary care office. The patient reports on her last admission she was told to not take her diuretics, and she has been holding her diuretics since then. She now reports 2 week history of bilateral lower extremity edema with some shortness of breath until yesterday. She presented to her primary care physician and was told to come to the ER for further evaluation. The patient has been admitted, given IV diuretics and now reports breathing much better but still has significant lower extremity edema. The patient denies any chest pain or any palpitations. The patient is seen and evaluated at bedside at the medical floor in the ER, currently doing well with no other issues. REVIEW OF SYSTEMS: Pertinent positive: Lower extremity edema, shortness of breath, orthopnea, dyspnea on exertion. Pertinent negative: Denies any chest pain, palpitations, nausea, vomiting, diarrhea, dysuria, hematuria, frequency, urgency, lightheadedness, dizziness, abdominal pain, headache or any other complaints. The rest of the 14-point review of systems have been reviewed with the patient and are negative. ALLERGIES: NO KNOWN DRUG ALLERGIES. HOME MEDICATIONS: Amiodarone 100 mg b.i.d., atorvastatin 10 mg daily, Lasix 40 mg daily, levothyroxine 25 mcg daily, metoprolol 25 mg p.o. b.i.d. PAST MEDICAL HISTORY: Diabetes, hypertension, CHF, hyperlipidemia. PAST SURGICAL HISTORY: None. FAMILY HISTORY: Hypertension, diabetes. SOCIAL HISTORY: No drugs, no alcohol, does not smoke. Has supportive family. PHYSICAL EXAMINATION VITAL SIGNS: Temperature 97.8, pulse 60, respiratory rate 18, blood pressure 106/44, pulse oximetry 100% on room air. GENERAL: In no acute distress, alert and oriented x3, cooperative on examination. HEENT: Head is normocephalic, atraumatic. Eyes: Pupils equal, round and reactive to light bilaterally. Extraocular movements intact bilaterally. Throat with no evidence of any erythema or exudates in posterior pharynx. Has poor dentition. NECK: Supple with good range of motion. PULMONARY: Bilateral rales, mild crackles, Inspiratory effort is good. CARDIOVASCULAR: Positive S1 and S2, no murmurs, rubs or gallops appreciated. ABDOMEN: Soft, nondistended, nontender on palpation. Bowel sounds were present. MUSCULOSKELETAL: Strength 5/5 throughout, no evidence of musculoskeletal deficit on exam. No weakness appreciated. NEUROLOGIC: Cranial nerves II-XII grossly intact. No evidence of neurological deficit on examination. SKIN: Intact. Warm to touch. Good capillary refill. EXTREMITIES: Has 2+ pedal edema in bilateral lower extremities. PSYCHIATRIC: Normal affect and mood. LABORATORY DATA: Show white count 8.7, hemoglobin 11.1, hematocrit 35. Platelets 217,000. Coagulations are normal. Chemistry: Sodium 128, potassium 5, chloride 99, bicarb 19, anion gap of 15, BUN 61, creatinine 2.3. Glucose 102. Calcium 8.2. LFTs are normal. CK MB 6.2. Troponin 0.033. BNP 2416. LDL 40. TSH 5.9. ASSESSMENT 1. Zatxn-fb-lcsauxy systolic congestive heart failure with an ejection fraction of 30%. 2. Chronic kidney disease stage 4. 3. Mild hyperkalemia. 4. Hyponatremia. 5. Type 2 diabetes. 6. Hypertension. 7. History of coronary artery disease and myocardial infarction. 8. Shortness of breath secondary to congestive heart failure exacerbation. PLAN: At this time, continue with IV diuretics, Lasix. Cardiology consulted. Troponins are negative. Insulin sliding scale. Continue antihypertensive medications, p.r.n. hydralazine. Continue with Lipitor statin. In relation to her sodium, this is likely due to her heart failure leading to hyponatremia, which will improve with IV diuretics. She does have underlying chronic kidney disease stage 4. Will need outpatient followup with nephrology. Will continue to resume her same home medications. She will be admitted and further evaluated. Job#: [id number]
[2017-05-17 13:03] VITALS: BP 125/55
[2017-05-17 13:18] LABS: CREATINE KINASE MB 7.6 ng/mL (0.00-5.00)
--- NOTE | 2017-05-17 14:19 | Consultation ---
DATE OF CONSULTATION: May 17, 2017 CARDIOLOGY CONSULTATION REASON FOR CONSULTATION: Shortness of breath. HISTORY OF PRESENT ILLNESS: Ms. Nunez is well known to our service. She is 81 years old. She has systolic heart failure. She has missed 1 or 2 doses of her furosemide. She comes in with volume overload, shortness of breath, and orthopnea. Her creatinine was elevated at 2.7 at the time of admission. She currently feels better after intravenous diuresis. PAST MEDICAL HISTORY: Unchanged from prior visit. SOCIAL HISTORY: Unchanged from prior visit. FAMILY HISTORY: Unchanged from prior visit. REVIEW OF SYSTEMS: Negative except as dictated in the history of present illness. ALLERGIES: No known drug allergies. PHYSICAL EXAMINATION VITALS: Afebrile. Heart rate 60. Blood pressure 115/40. O2 sat is 97%. LUNGS: Crackles and rhonchi bilaterally in both lung bases. CARDIOVASCULAR: Regular rhythm. S3 gallop. Systolic murmur. ABDOMEN: Soft and not distended. EXTREMITIES: 1+ edema. Creatinine is 2.37. Hemoglobin is 11. Chest x-rays shows cardiomegaly with pulmonary edema. ASSESSMENT: Wjuan-pm-suqiqck systolic heart failure. RECOMMENDATIONS: Continue diuresis. Follow renal function. We will restart her beta-olivia as well as her simvastatin and amiodarone. Compliance with medications and close followup was stressed to the patient. We will continue to follow her. I thank Dr. Iyer for this consultation. Job#: [id number] FCO
[2017-05-17 16:00] VITALS: BP 126/77
[2017-05-17 20:00] VITALS: BP 122/58
[2017-05-17] MEDS: HEPARIN SOD (PORCINE) 5,000 UNIT/ML VIAL SC SCH (20:55)
[2017-05-17] MEDS: ATORVASTATIN 10 MG TAB PO SCH (20:57)
[2017-05-17] MEDS ORDERED: ATORVASTATIN 20 MG TAB PO SCH (21:00)
[2017-05-17] MEDS: ZOLPIDEM TARTRATE 5 MG TAB PO PRN (21:00)
[2017-05-18] VITALS: BP 122/55
[2017-05-18 04:00] VITALS: BP 90/44
[2017-05-18] MEDS ORDERED: LEVOTHYROXINE SODIUM 75 MCG TAB PO SCH (06:00)
[2017-05-18 06:33] LABS: ANION GAP 11.4 mmol/L (8-16); CALCIUM 7.9 mg/dL (8.4-10.2); CREATININE, SERUM 2.37 mg/dL (0.57-1.11); MAGNESIUM 2.4 MG/DL (1.3-2.1); POTASSIUM 4.4 mmol/L (3.5-5.1)
[2017-05-18 08:00] VITALS: BP 115/60
[2017-05-18] MEDS: INSULIN REGULAR, HUMAN 100 UNIT/1 ML 3ML VIAL SQ SCH ×4 (08:00→21:35)
[2017-05-18] MEDS: ASPIRIN 81 MG ENTERIC COATED PO SCH ×2 (08:31)
[2017-05-18] MEDS: FUROSEMIDE INJ 10 MG/ML 4 ML VIAL IV SCH ×3 (08:31→17:01)
[2017-05-18] MEDS: AMIODARONE HCL 200 MG TAB PO SCH ×4 (08:31→16:37)
[2017-05-18] MEDS: METOPROLOL TARTRATE 25 MG TAB PO SCH ×2 (08:32→16:37)
[2017-05-18] MEDS: HEPARIN SOD (PORCINE) 5,000 UNIT/ML VIAL SC SCH ×2 (08:37→21:35)
[2017-05-18] MEDS ORDERED: LEVOTHYROXINE SODIUM 50 MCG TAB PO SCH (09:00)
[2017-05-18 10:08] LABS: BASOPHILS # (AUTO) 0.1 (0.0-0.1); BASOPHILS % 0.5 % (0.0-1.0); EOSINOPHILS # (AUTO) 0.3 (0.0-0.4); EOSINOPHILS % 3.3 % (0.0-6.0); HEMATOCRIT 32.1 % (34.2-44.1); HEMOGLOBIN 9.8 g/dL (12.0-16.0); LYMPHOCYTES # (AUTO) 1.2 (1.0-3.2); LYMPHOCYTES % 11.4 % (18.0-39.1); MEAN CORPUSCULAR HEMOGLOBIN 25.5 pg (28-32); MEAN CORPUSCULAR HGB CONC 30.5 g/dL (31-35); MEAN CORPUSCULAR VOLUME 83.6 fL (81-99); MONOCYTES % 9.7 % (4.4-11.3); NEUTROPHILS # (AUTO) 7.7 (2.1-6.9); NEUTROPHILS % 74.6 % (38.7-80.0); PLATELET COUNT 212 x10e3/uL (140-360); RED BLOOD COUNT 3.84 x10e6/uL (3.6-5.1); RED CELL DISTRIBUTION WIDTH 15.6 % (11.7-14.4)
[2017-05-18 12:00] VITALS: BP 82/67
--- NOTE | 2017-05-18 15:40 | Progress Note ---
DATE: May 18, 2017 CARDIOLOGY PROGRESS NOTE SUBJECTIVE: Ms. Nunez feels much better. Her shortness of breath has improved. OBJECTIVE VITAL SIGNS: Afebrile. Heart rate 60, blood pressure 115/60, O2 sat is 98% on room air. CARDIOVASCULAR: Regular rhythm. S3 gallop. Systolic murmur. LUNGS: Occasional crackles in the right base. ABDOMEN: Soft. Bowel sounds heard adequately. Hemoglobin is 9.8. Serum creatinine 2.37, GFR of 20. TELEMETRY: Shows AV, biventricular paced rhythm. MEDICATIONS: Reviewed. ASSESSMENT 1. Ransr-ks-wpxgmxo systolic heart failure. 2. Chronic kidney disease. RECOMMENDATIONS: Current cardiac medications appropriate. IV diuretics. The patient should be stable for discharge in the next 24 hours with close followup in the office. Job#: [id number]
[2017-05-18 16:00] VITALS: BP 113/55
[2017-05-18] MEDS: ATORVASTATIN 10 MG TAB PO SCH (21:35)
[2017-05-18] MEDS: ZOLPIDEM TARTRATE 5 MG TAB PO PRN (21:36)
[2017-05-19] MEDS: LEVOTHYROXINE SODIUM 25 MCG TABLET PO SCH (05:38)
[2017-05-19] MEDS: FUROSEMIDE INJ 10 MG/ML 4 ML VIAL IV SCH ×2 (05:38)
[2017-05-19 07:15] VITALS: BP 109/60
[2017-05-19 08:07] VITALS: BP 109/60
[2017-05-19 08:15] LABS: ANION GAP 15.6 mmol/L (8-16); CALCIUM 7.8 mg/dL (8.4-10.2); CREATININE, SERUM 2.6 mg/dL (0.57-1.11); POTASSIUM 4.6 mmol/L (3.5-5.1)
[2017-05-19] MEDS: ASPIRIN 81 MG ENTERIC COATED PO SCH (08:55)
[2017-05-19] MEDS: HEPARIN SOD (PORCINE) 5,000 UNIT/ML VIAL SC SCH ×2 (08:55→21:31)
[2017-05-19] MEDS: INSULIN REGULAR, HUMAN 100 UNIT/1 ML 3ML VIAL SQ SCH ×4 (08:55→21:32)
[2017-05-19] MEDS: METOPROLOL TARTRATE 25 MG TAB PO SCH ×2 (09:00→16:31)
[2017-05-19] MEDS: AMIODARONE HCL 200 MG TAB PO SCH ×2 (09:00→16:30)
[2017-05-19] MEDS: BUMETANIDE INJ 0.25MG/ML 4ML VIAL IV SCH ×2 (11:08→18:34)
--- NOTE | 2017-05-19 11:40 | Progress Note ---
DATE: May 19, 2017 CARDIOLOGY PROGRESS NOTE SUBJECTIVE: Patient denies chest pain. She reports she is short of breath with minimal activity such as sitting up in bed and ambulating. OBJECTIVE VITAL SIGNS: Temperature 97.8 degrees, pulse 60, respiratory rate 18, blood pressure 109/60, oxygen saturation 97% on room air. GENERAL: Awake and alert, in no acute distress. LUNGS: Clear to auscultation bilaterally. No wheezes or crackles. CARDIOVASCULAR: Normal rate, regular rhythm. No murmurs or rubs. ABDOMEN: Soft. Nontender. EXTREMITIES: 2+ pitting edema, bilateral lower extremities. CARDIAC MEDICATIONS 1. Bumex 1 mg IV q.8 h. 2. Aspirin 81 mg p.o. daily. 3. Heparin 5,000 units subcutaneous q.12 h. 4. Levothyroxine 25 mcg p.o. daily. 5. Atorvastatin 10 mg p.o. nightly. 6. Amiodarone 100 mg p.o. b.i.d. 7. Metoprolol tartrate 25 mg p.o. b.i.d. LABS: Sodium 128, potassium 4.6, chloride 98, CO2 19, BUN 70, creatinine 2.6. TELEMETRY: A-paced. IMPRESSION 1. Wiavs-bt-pryezfe systolic heart failure. 2. Hyponatremia. 3. Chronic kidney disease. 4. Coronary artery disease, status post coronary artery bypass graft. 5. Diabetes mellitus. 6. Hypertension. 7. Hyperlipidemia. RECOMMENDATIONS: Continue diuresis for the patient's ffjfb-mf-jccdyuy systolic heart failure. Monitor creatinine closely. Replete electrolytes as needed. Continue current cardiac medications otherwise. She will need to be transitioned to metoprolol succinate when she goes home. Thank you for this consult. We will continue to follow. Job#: [id number]
[2017-05-19] MEDS ORDERED: MIDODRINE 2.5 MG TAB PO SCH (12:00)
[2017-05-19] MEDS: MIDODRINE HCL 5 MG TABLET PO SCH ×2 (12:24→17:00)
[2017-05-19 13:13] VITALS: BP 113/63
[2017-05-19 17:00] VITALS: BP 109/56
[2017-05-19 20:00] VITALS: BP 135/60
[2017-05-19] MEDS: ATORVASTATIN 10 MG TAB PO SCH (21:09)
[2017-05-19 23:18] VITALS: BP 135/60
[2017-05-20] VITALS (8 sets, daily range): BP systolic 105–131; BP diastolic 49–68
[2017-05-20] MEDS: BUMETANIDE INJ 0.25MG/ML 4ML VIAL IV SCH (02:03)
[2017-05-20] MEDS: LEVOTHYROXINE SODIUM 25 MCG TABLET PO SCH (06:05)
[2017-05-20 06:50] LABS: BASOPHILS % 0.5 % (0.0-1.0); EOSINOPHILS # (AUTO) 0.3 (0.0-0.4); EOSINOPHILS % 3.4 % (0.0-6.0); HEMATOCRIT 31.5 % (34.2-44.1); HEMOGLOBIN 9.6 g/dL (12.0-16.0); LYMPHOCYTES # (AUTO) 1.2 (1.0-3.2); LYMPHOCYTES % 15.6 % (18.0-39.1); MEAN CORPUSCULAR HEMOGLOBIN 25.3 pg (28-32); MEAN CORPUSCULAR HGB CONC 30.5 g/dL (31-35); MEAN CORPUSCULAR VOLUME 83.1 fL (81-99); MONOCYTES # (AUTO) 0.8 (0.2-0.8); NEUTROPHILS # (AUTO) 5.4 (2.1-6.9); NEUTROPHILS % 70.2 % (38.7-80.0); PLATELET COUNT 197 x10e3/uL (140-360); RED BLOOD COUNT 3.79 x10e6/uL (3.6-5.1); RED CELL DISTRIBUTION WIDTH 15.8 % (11.7-14.4)
[2017-05-20 07:10] LABS: ALBUMIN 3.2 g/dL (3.5-5.0); ANION GAP 16.6 mmol/L (8-16); CREATININE, SERUM 2.64 mg/dL (0.57-1.11); POTASSIUM 4.6 mmol/L (3.5-5.1)
[2017-05-20] MEDS: AMIODARONE HCL 200 MG TAB PO SCH ×2 (09:00→17:00)
[2017-05-20] MEDS: METOPROLOL TARTRATE 25 MG TAB PO SCH ×2 (09:00→17:00)
[2017-05-20] MEDS: MIDODRINE HCL 5 MG TABLET PO SCH (09:26)
[2017-05-20] MEDS: ASPIRIN 81 MG ENTERIC COATED PO SCH (09:26)
[2017-05-20] MEDS: HEPARIN SOD (PORCINE) 5,000 UNIT/ML VIAL SC SCH ×2 (09:26→21:45)
[2017-05-20] MEDS: INSULIN REGULAR, HUMAN 100 UNIT/1 ML 3ML VIAL SQ SCH ×4 (09:26→23:44)
--- NOTE | 2017-05-20 16:09 | Progress Note ---
DATE: May 20, 2017 CARDIOLOGY PROGRESS NOTE: SUBJECTIVE: Ms. Nunez feels well. Denies shortness of breath or chest pain. OBJECTIVE VITAL SIGNS: Afebrile. Heart rate 60. Blood pressure 111/52. O2 sat is 97%. CARDIOVASCULAR: Regular rhythm. Systolic murmur. S3 gallop. LUNGS: Clear to auscultation but occasional fine crackles bilaterally. Hemoglobin is 9.6. Serum creatinine 2.6. Telemetry shows bi-V paced rhythm. ASSESSMENT: Acute on chronic systolic heart failure. PLAN: Continue the current diuresis and beta olivia for rhythm and rate control. She is stable for discharge from the cardiac standpoint in the next 24 hours. Job#: [id number] EV
[2017-05-20] MEDS: ATORVASTATIN 10 MG TAB PO SCH (22:02)
[2017-05-20] MEDS: ZOLPIDEM TARTRATE 5 MG TAB PO PRN (22:02)
[2017-05-21] VITALS (7 sets, daily range): BP systolic 105–141; BP diastolic 42–63
[2017-05-21] MEDS: LEVOTHYROXINE SODIUM 25 MCG TABLET PO SCH (05:30)
[2017-05-21] MEDS: METOPROLOL TARTRATE 25 MG TAB PO SCH ×2 (09:00→17:42)
[2017-05-21] MEDS: INSULIN REGULAR, HUMAN 100 UNIT/1 ML 3ML VIAL SQ SCH ×4 (09:00→21:55)
[2017-05-21] MEDS: ASPIRIN 81 MG ENTERIC COATED PO SCH (09:00)
[2017-05-21] MEDS: HEPARIN SOD (PORCINE) 5,000 UNIT/ML VIAL SC SCH ×2 (09:01→21:50)
[2017-05-21] MEDS: AMIODARONE HCL 200 MG TAB PO SCH ×2 (10:00→17:41)
[2017-05-21] MEDS ORDERED: BUMETANIDE INJ 0.25MG/ML 4ML VIAL IV ONE (10:00)
[2017-05-21 10:43] LABS: ANION GAP 15.8 mmol/L (8-16); CALCIUM 8.2 mg/dL (8.4-10.2); CREATININE, SERUM 2.41 mg/dL (0.57-1.11); POTASSIUM 4.8 mmol/L (3.5-5.1)
--- NOTE | 2017-05-21 15:55 | Progress Note ---
DATE: May 21, 2017 SUBJECTIVE: The patient denies chest pain or shortness of breath. However, she reports her legs are still swollen. OBJECTIVE VITAL SIGNS: Temperature 96.7 degrees, pulse 60, respiratory rate 18, blood pressure 141/58, oxygen saturation 99% on room air. GENERAL: Awake and alert, in no acute distress. LUNGS: Clear to auscultation bilaterally. No wheezes or crackles. CARDIOVASCULAR: Normal rate, regular rhythm. No murmur. Normal S1 and S2. ABDOMEN: Soft. Nontender. EXTREMITIES: 2+ pitting edema, bilateral lower extremities. CARDIAC MEDICATIONS 1. Aspirin 81 mg p.o. daily. 2. Heparin 5,000 units subcutaneous q.12 h. 3. Levothyroxine 25 mcg p.o. daily. 4. Atorvastatin 10 mg p.o. nightly. 5. Amiodarone 100 mg p.o. b.i.d. 6. Metoprolol tartrate 25 mg p.o. b.i.d. LABS: Sodium 131, potassium 4.8, chloride 98, CO2 of 22, BUN 69, creatinine 2.41. TELEMETRY: AV sequential pacing. IMPRESSION 1. Gbhsv-rp-bhiytxp systolic heart failure. 2. Hyponatremia, improving. 3. Chronic kidney disease. 4. Coronary artery disease, status post coronary artery bypass graft. 5. Diabetes mellitus. 6. Hypertension. 7. Hyperlipidemia. RECOMMENDATIONS: Continue diuresis for the patient's cgkur-al-xkvwyws heart failure. Monitor creatinine closely and replete electrolytes as needed. Continue current cardiac medications otherwise. She will need to be transitioned to metoprolol succinate when she is discharged. Thank you for this consult. We will continue to follow. Job#: [id number]
[2017-05-21] MEDS: ATORVASTATIN 10 MG TAB PO SCH (21:50)
[2017-05-21] MEDS: ZOLPIDEM TARTRATE 5 MG TAB PO PRN (22:19)
[2017-05-22] VITALS: BP 136/62
[2017-05-22] MEDS: LEVOTHYROXINE SODIUM 25 MCG TABLET PO SCH (05:46)
[2017-05-22 08:00] VITALS: BP 131/56
[2017-05-22] MEDS: INSULIN REGULAR, HUMAN 100 UNIT/1 ML 3ML VIAL SQ SCH ×4 (08:00→20:36)
[2017-05-22] MEDS: ASPIRIN 81 MG ENTERIC COATED PO SCH (08:40)
[2017-05-22] MEDS: AMIODARONE HCL 200 MG TAB PO SCH ×2 (08:40→18:48)
[2017-05-22] MEDS: METOPROLOL TARTRATE 25 MG TAB PO SCH ×2 (08:41→18:48)
[2017-05-22] MEDS: HEPARIN SOD (PORCINE) 5,000 UNIT/ML VIAL SC SCH ×2 (09:00→20:33)
[2017-05-22 09:49] LABS: BASOPHILS % 0.5 % (0.0-1.0); EOSINOPHILS # (AUTO) 0.2 (0.0-0.4); HEMATOCRIT 33.8 % (34.2-44.1); HEMOGLOBIN 10.2 g/dL (12.0-16.0); LYMPHOCYTES # (AUTO) 0.8 (1.0-3.2); LYMPHOCYTES % 10.8 % (18.0-39.1); MEAN CORPUSCULAR HEMOGLOBIN 25.2 pg (28-32); MEAN CORPUSCULAR HGB CONC 30.2 g/dL (31-35); MEAN CORPUSCULAR VOLUME 83.7 fL (81-99); MONOCYTES # (AUTO) 0.6 (0.2-0.8); NEUTROPHILS # (AUTO) 5.7 (2.1-6.9); NEUTROPHILS % 77.2 % (38.7-80.0); PLATELET COUNT 180 x10e3/uL (140-360); RED BLOOD COUNT 4.04 x10e6/uL (3.6-5.1); RED CELL DISTRIBUTION WIDTH 15.5 % (11.7-14.4)
[2017-05-22 10:15] VITALS: BP 131/56
[2017-05-22 10:20] LABS: ANION GAP 14.5 mmol/L (8-16); CALCIUM 8.2 mg/dL (8.4-10.2); CREATININE, SERUM 2.22 mg/dL (0.57-1.11); POTASSIUM 4.5 mmol/L (3.5-5.1)
--- NOTE | 2017-05-22 10:34 | Progress Note ---
DATE: May 22, 2017 CARDIOLOGY PROGRESS NOTE SUBJECTIVE: Patient denies chest pain or shortness of breath. She reports her legs remain swollen. OBJECTIVE VITALS: Temperature 97.8 degrees, pulse 60, respiratory rate 18, blood pressure 131/56, oxygen saturation 96% on room air. GENERAL: Awake, alert and in no acute distress. LUNGS: She has crackles in the bases, otherwise clear to auscultation. CARDIOVASCULAR: Normal rate and regular rhythm. No murmur. Normal S1 and S2. ABDOMEN: Soft and nontender. EXTREMITIES: Two plus pitting edema in bilateral lower extremities. CARDIAC MEDICATIONS 1. Metoprolol succinate 25 mg p.o. b.i.d. 2. Amiodarone 100 mg p.o. b.i.d. 3. Aspirin 81 mg p.o. daily. 4. Levothyroxine 25 mcg p.o. daily. 5. Atorvastatin 10 mg p.o. at bedtime. 6. Heparin 5000 units subcutaneous q.12 h. LABS: WBC 7.4, hemoglobin 10.2, hematocrit 33.8, and platelets 180,000. BNP is pending. Telemetry is AV sequential pacing. IMPRESSION 1. Jlyef-gs-gvvqapu systolic heart failure. 2. Hyponatremia, improving. 3. Chronic kidney disease. 4. Coronary artery disease: Status post coronary artery bypass graft. 5. Diabetes mellitus. 6. Hypertension. 7. Hyperlipidemia. RECOMMENDATIONS: Continue diuresis. Monitor creatinine closely. Replete electrolytes as needed. Continue current cardiac medications otherwise. Patient will need to be transitioned to metoprolol succinate 50 mg p.o. daily upon discharge. Thank you for this consult. We will continue to follow. Job#: [id number] NE
[2017-05-22 12:00] VITALS: BP 111/58
--- NOTE | 2017-05-22 15:51 | Consultation ---
DATE OF CONSULTATION: May 22, 2017 HISTORY OF PRESENT ILLNESS: This 81-year-old female has been admitted with apparent congestive heart failure, currently comfortable lying supine. Renal consulted for management of underlying kidney failure. Patient has existing history of chronic kidney disease, stage 3. Has history of hyperlipidemia, hypothyroidism, type-2 diabetes, hypertension, prior congestive heart failure. Baseline serum creatinine around 2.2. Currently lying supine in no apparent distress. PHYSICAL EXAMINATION VITALS: Blood pressure 132/62. Pulse rate 60. Afebrile. HEAD AND NECK: Corneas clear. Oral mucosa moist. Neck veins flat. LUNGS: Relatively clear. Harsh vesicular breath sounds. No rales. HEART: S1, S2 audible. ABDOMEN: Otherwise soft, nontender. LOWER EXTREMITIES: Trace edema. ALLERGIES: NO APPARENT DRUG ALLERGIES. SOCIAL HISTORY: Does not smoke or drink. FAMILY HISTORY: Significant for diabetes. CURRENT MEDICATIONS 1. Zolpidem p.r.n. 2. Ondansetron p.r.n. 3. Metoprolol 25 mg p.o. b.i.d. 4. Levothyroxine 25 mcg daily. 5. Aspirin 81 mg daily. 6. Amiodarone 100 mg p.o. b.i.d. 7. Atorvastatin 10 mg p.o. nightly. LABS: White count 7.4, hemoglobin 10.2. Potassium 4.5, bicarbonate 22. Creatinine 2.22. IMPRESSION AND PLAN: Mild congestive heart failure with underlying nsskn-qb-eiureoq kidney failure, underlying chronic nephrosclerosis, stage-3 kidney failure. She has been worked up in the past with a kidney ultrasound, but I am not able to retrieve the results. Will obtain a stat kidney ultrasound. Will monitor the patient's kidney function and urine output with you. Mild distal renal tubular acidosis. Please see orders. Job#: [id number]
[2017-05-22 16:00] VITALS: BP 104/62
--- NOTE | 2017-05-22 16:38 | Diagnostic Imaging Report ---
PROCEDURE:US RETROPERITONEAL ( KIDNEY ). COMPARISON:Renal ultrasound on 04/13/2016 INDICATIONS:BROCK/CKD TECHNIQUE: Alcantara-scale and color sonographic images of the bilateral kidneys and bladder where obtained in transverse and longitudinal planes. FINDINGS: RIGHT KIDNEY: 8.7 x 4.3 x 4.6 cm, cortex 0.8 cm Cysts: None Solid masses: None Stones: None Hydronephrosis: None Echogenicity: Increased LEFT KIDNEY: 8.9 x 4.9 x 4.3 cm, cortex 1.1 cm Cysts: None Solid masses: None Stones: None Hydronephrosis: None Echogenicity: Increased Bladder: Decompressed but otherwise unremarkable. Other findings: Increased echogenicity of the liver reflecting hepatic steatosis. CONCLUSION: 1. Small echogenic kidneys suggestive of medical renal disease. 2. No hydronephrosis. Dictated by: Panfilo Roa M.D. on 05/22/2017 at 16:47 Electronically approved by: Panfilo Roa M.D. on 05/22/2017 at 16:47
[2017-05-22] MEDS: FUROSEMIDE 40 MG TAB PO SCH (18:48)
[2017-05-22 20:00] VITALS: BP 130/57
[2017-05-22] MEDS: ATORVASTATIN 10 MG TAB PO SCH (20:32)
[2017-05-22] MEDS: ZOLPIDEM TARTRATE 5 MG TAB PO PRN (22:32)
[2017-05-23] VITALS (7 sets, daily range): BP systolic 105–134; BP diastolic 49–62
[2017-05-23] MEDS: LEVOTHYROXINE SODIUM 25 MCG TABLET PO SCH (05:37)
[2017-05-23] MEDS: FUROSEMIDE 40 MG TAB PO SCH (05:37)
[2017-05-23 07:21] LABS: ALBUMIN 3.4 g/dL (3.5-5.0); ALBUMIN/GLOBULIN RATIO 1.1 (0.8-2.0); ANION GAP 16.5 mmol/L (8-16); CALCIUM 8.6 mg/dL (8.4-10.2); CREATININE, SERUM 2.13 mg/dL (0.57-1.11); POTASSIUM 4.5 mmol/L (3.5-5.1)
[2017-05-23] MEDS: AMIODARONE HCL 200 MG TAB PO SCH ×2 (09:00→17:00)
[2017-05-23] MEDS: INSULIN REGULAR, HUMAN 100 UNIT/1 ML 3ML VIAL SQ SCH ×4 (09:31→21:40)
[2017-05-23] MEDS: ASPIRIN 81 MG ENTERIC COATED PO SCH (09:31)
[2017-05-23] MEDS: HEPARIN SOD (PORCINE) 5,000 UNIT/ML VIAL SC SCH ×2 (09:31→21:40)
[2017-05-23] MEDS ORDERED: FUROSEMIDE INJ 10 MG/ML 4 ML VIAL IV NR (11:00)
[2017-05-23] MEDS ORDERED: METOPROLOL SUCCINATE 50 MG TAB XL PO NR (11:00)
--- NOTE | 2017-05-23 11:17 | Progress Note ---
DATE: May 23, 2017 CARDIOLOGY PROGRESS NOTE SUBJECTIVE: Patient denies chest pain or shortness of breath. She reports her legs are still swollen. OBJECTIVE VITALS: Temperature 96.7 degrees, pulse 60, respiratory rate 20, blood pressure 130/62, oxygen saturation 97% on room air. GENERAL: Awake, alert, in no acute distress. LUNGS: Clear to auscultation bilaterally. No wheezes or crackles. CARDIOVASCULAR: Normal rate and regular rhythm. No murmur. Normal S1 and S2. ABDOMEN: Soft and nontender. EXTREMITIES: 2+ pitting edema in bilateral lower extremities. CARDIAC MEDICATIONS 1. Furosemide 40 mg p.o. b.i.d. 2. Levothyroxine 25 mcg p.o. daily. 3. Atorvastatin 10 mg p.o. at bedtime. 4. Amiodarone 100 mg p.o. b.i.d. 5. Metoprolol tartrate 25 mg p.o. b.i.d. 6. Aspirin 81 mg p.o. daily. LABS: Sodium 133, potassium 4.5, chloride 100, CO2 21, BUN 66, creatinine 2.13. BNP 2142. TELEMETRY: AV paced. IMPRESSION 1. Cgepw-hv-gckochd systolic heart failure. 2. Hyponatremia, improving. 3. Chronic kidney disease. 4. Coronary artery disease, status post coronary artery bypass graft. 5. Diabetes mellitus. 6. Hypertension. 7. Hyperlipidemia. RECOMMENDATIONS: Patient remains volume overloaded with elevated BNP, lower extremity edema and hyponatremia. Recommend continued IV diuresis. Monitor creatinine closely. It is improving. Replete electrolytes as needed. Continue current cardiac medications otherwise. Will transition to metoprolol succinate. Thank you for this consult. We will continue to follow. Job#: [id number]
[2017-05-23] MEDS ORDERED: FUROSEMIDE INJ 10 MG/ML 4 ML VIAL IV SCH (18:00)
[2017-05-23] MEDS: ATORVASTATIN 10 MG TAB PO SCH (21:40)
[2017-05-23] MEDS: FUROSEMIDE INJ 10 MG/ML 4 ML VIAL IV SCH (21:40)
[2017-05-23] MEDS: ZOLPIDEM TARTRATE 5 MG TAB PO PRN (21:46)
[2017-05-24] VITALS (7 sets, daily range): BP systolic 113–164; BP diastolic 54–74
[2017-05-24] MEDS: FUROSEMIDE INJ 10 MG/ML 4 ML VIAL IV SCH ×4 (02:49→21:31)
[2017-05-24] MEDS: LEVOTHYROXINE SODIUM 25 MCG TABLET PO SCH (06:00)
[2017-05-24 07:01] LABS: ALBUMIN 3.4 g/dL (3.5-5.0); ALBUMIN/GLOBULIN RATIO 1.2 (0.8-2.0); ANION GAP 15.3 mmol/L (8-16); CALCIUM 8.2 mg/dL (8.4-10.2); CREATININE, SERUM 2.32 mg/dL (0.57-1.11); POTASSIUM 4.3 mmol/L (3.5-5.1)
[2017-05-24] MEDS: AMIODARONE HCL 200 MG TAB PO SCH ×2 (09:00→17:00)
[2017-05-24] MEDS: ASPIRIN 81 MG ENTERIC COATED PO SCH (09:20)
[2017-05-24] MEDS: INSULIN REGULAR, HUMAN 100 UNIT/1 ML 3ML VIAL SQ SCH ×4 (09:20→21:05)
[2017-05-24] MEDS: HEPARIN SOD (PORCINE) 5,000 UNIT/ML VIAL SC SCH ×2 (09:20→21:32)
[2017-05-24] MEDS: METOPROLOL SUCCINATE 50 MG TAB XL PO SCH (09:20)
--- NOTE | 2017-05-24 13:31 | Progress Note ---
DATE: May 24, 2017 CARDIOLOGY PROGRESS NOTE SUBJECTIVE: No new complaints other than shortness of breath, which is improving. OBJECTIVE VITAL SIGNS: Temperature 97.8, heart rate 60, respiratory rate 18, blood pressure 113/56, O2 sat 100% on 2 L per minute nasal cannula. GENERAL: No acute distress. Alert. NECK: No JVD. CHEST: Bibasilar rales. CARDIOVASCULAR: Regular rate and rhythm. Normal S1 and S2. ABDOMEN: Soft. EXTREMITIES: 1+ edema. Graduated compression socks in place. CARDIOVASCULAR MEDICATIONS 1. Furosemide 40 mg q.6 h. IV. 2. Metoprolol succinate 50 mg daily. 3. Aspirin 81 mg daily. 4. Heparin 5,000 units subcutaneous q.12 h. 5. Atorvastatin 10 mg nightly. 6. Amiodarone 100 mg b.i.d. STUDIES FOR TODAY: Sodium 132, potassium 4.3, chloride 100, bicarbonate 21, BUN 68, creatinine 2.3, glucose 188. Total bilirubin 1.1, AST 49 ALT 43, alk phos 86, total protein 6.2, albumin 3.4. TELEMETRY: Paced rhythm. ASSESSMENT 1. Dcsko-ba-kcdhtec systolic heart failure. 2. Hyponatremia. 3. Chronic kidney disease. 4. Coronary artery disease, status post aortocoronary bypass. 5. Diabetes mellitus. 6. Hypertension. 7. Dyslipidemia. PLAN: Proceed with strict ins and outs and urine output monitoring. Continue diuretics and adjust accordingly. Trend sodium. If continues to trend down, recommend strict fluid intake less than 1.2 L per day. Continue current cardiovascular medications and adequate blood pressure control. Job#: [id number]
[2017-05-24] MEDS: ATORVASTATIN 10 MG TAB PO SCH (20:38)
[2017-05-25] VITALS (7 sets, daily range): BP systolic 112–185; BP diastolic 56–73
[2017-05-25] MEDS: FUROSEMIDE INJ 10 MG/ML 4 ML VIAL IV SCH ×4 (03:56→21:45)
[2017-05-25] MEDS: LEVOTHYROXINE SODIUM 25 MCG TABLET PO SCH (05:44)
[2017-05-25 07:51] LABS: BASOPHILS % 0.4 % (0.0-1.0); EOSINOPHILS # (AUTO) 0.2 (0.0-0.4); EOSINOPHILS % 2.3 % (0.0-6.0); HEMATOCRIT 31.2 % (34.2-44.1); HEMOGLOBIN 9.4 g/dL (12.0-16.0); LYMPHOCYTES % 10.4 % (18.0-39.1); MEAN CORPUSCULAR HEMOGLOBIN 24.9 pg (28-32); MEAN CORPUSCULAR HGB CONC 30.1 g/dL (31-35); MEAN CORPUSCULAR VOLUME 82.8 fL (81-99); MONOCYTES # (AUTO) 0.7 (0.2-0.8); MONOCYTES % 7.5 % (4.4-11.3); NEUTROPHILS # (AUTO) 7.8 (2.1-6.9); NEUTROPHILS % 78.9 % (38.7-80.0); PLATELET COUNT 175 x10e3/uL (140-360); RED BLOOD COUNT 3.77 x10e6/uL (3.6-5.1); RED CELL DISTRIBUTION WIDTH 15.5 % (11.7-14.4)
[2017-05-25 08:08] LABS: ANION GAP 15.8 mmol/L (8-16); CALCIUM 8.2 mg/dL (8.4-10.2); CREATININE, SERUM 2.07 mg/dL (0.57-1.11); POTASSIUM 3.8 mmol/L (3.5-5.1)
[2017-05-25] MEDS: INSULIN REGULAR, HUMAN 100 UNIT/1 ML 3ML VIAL SQ SCH ×4 (08:34→20:30)
[2017-05-25] MEDS: AMIODARONE HCL 200 MG TAB PO SCH ×2 (09:48→16:30)
[2017-05-25] MEDS: ASPIRIN 81 MG ENTERIC COATED PO SCH (09:48)
[2017-05-25] MEDS: HEPARIN SOD (PORCINE) 5,000 UNIT/ML VIAL SC SCH ×2 (09:48→23:35)
[2017-05-25] MEDS: METOPROLOL SUCCINATE 50 MG TAB XL PO SCH (09:48)
--- NOTE | 2017-05-25 12:59 | Progress Note ---
DATE: CARDIOLOGY PROGRESS NOTE SUBJECTIVE: No new complaints. OBJECTIVE VITAL SIGNS: Temperature 96.9, heart rate 60, respiratory rate 20, blood pressure 130/58, and O2 sat 100% on 2 liter per minute nasal cannula. GENERAL: No acute distress. Alert. NECK: No JVD. CHEST: Clear to auscultation. CARDIOVASCULAR: Regular rate and rhythm. Normal S1 and S2. No S3 and no S4. No murmurs or rubs. ABDOMEN: Soft, nontender, and distension. EXTREMITIES: Trace edema bilateral lower extremities. CARDIOVASCULAR MEDIATIONS: Furosemide 40 mg IV every 6 hours, metoprolol succinate 50 mg daily, amiodarone 100 mg b.i.d., aspirin 81 mg daily, heparin 5000 units subcutaneous every 12 hours, and atorvastatin 10 mg at bedtime. STUDIES: White blood cells 9.9, hemoglobin 9.4, and platelets 175. Sodium 132, potassium 3.8, chloride 99, bicarbonate 21, BUN 68, creatinine 2.07, glucose 159, and calcium 8.2. TELEMETRY: Paced rhythm. ASSESSMENT 1. Ermsi-nv-mgwytjj systolic heart failure. 2. Hyponatremia. 3. Chronic kidney disease. 4. Coronary artery disease status post aortocoronary bypass. 5. Diabetes mellitus. 6. Hypertension. 7. Dyslipidemia. PLAN: Continue current cardiovascular medications. If volume status is significantly improved, can consider transitioning to oral diuretics starting tomorrow. Sodium is stable at 132, consider free water restriction. Continue rest of cardiovascular medications. Job#: [id number] VAS
[2017-05-25] MEDS: ATORVASTATIN 10 MG TAB PO SCH (20:30)
[2017-05-25] MEDS: ZOLPIDEM TARTRATE 5 MG TAB PO PRN ×2 (23:34→23:35)
[2017-05-26] VITALS: BP 113/64
[2017-05-26] MEDS: FUROSEMIDE INJ 10 MG/ML 4 ML VIAL IV SCH ×2 (03:45→09:12)
[2017-05-26 04:00] VITALS: BP 126/56
[2017-05-26] MEDS: LEVOTHYROXINE SODIUM 25 MCG TABLET PO SCH (05:55)
[2017-05-26 08:00] VITALS: BP 114/70
[2017-05-26] MEDS: INSULIN REGULAR, HUMAN 100 UNIT/1 ML 3ML VIAL SQ SCH ×4 (08:00→21:07)
[2017-05-26] MEDS: HEPARIN SOD (PORCINE) 5,000 UNIT/ML VIAL SC SCH ×2 (09:12→21:06)
[2017-05-26] MEDS: AMIODARONE HCL 200 MG TAB PO SCH ×2 (09:12→17:22)
[2017-05-26] MEDS: METOPROLOL SUCCINATE 50 MG TAB XL PO SCH (09:12)
[2017-05-26] MEDS: ASPIRIN 81 MG ENTERIC COATED PO SCH (09:12)
[2017-05-26] MEDS ORDERED: ALBUTEROL SULFATE HFA 8GM INHALATION AEROSOL INH PRN (10:00)
--- NOTE | 2017-05-26 11:14 | Progress Note ---
DATE: May 26, 2017 CARDIOLOGY PROGRESS NOTE SUBJECTIVE: Patient denies chest pain or shortness of breath. She reports she may be discharged home today on home O2. OBJECTIVE VITALS: Temperature 97.8 degrees, pulse 60, respiratory rate 18, blood pressure 114/70, and oxygen saturation 98% on 2 L nasal cannula. GENERAL: Awake, alert and in no acute distress. LUNGS: Clear to auscultation bilaterally. No wheezes or crackles. CARDIOVASCULAR: Normal rate and regular rhythm. No murmur. Normal S1 and S2. ABDOMEN: Soft and nontender. EXTREMITIES: Two plus pitting edema of bilateral lower extremities. CARDIAC MEDICATIONS 1. Metoprolol succinate 50 mg p.o. daily. 2. Heparin subcutaneous 5000 units subcutaneous q.12 h. 3. Amiodarone 100 mg p.o. b.i.d. 4. Aspirin 81 mg p.o. daily. 5. Levothyroxine 25 mcg p.o. daily. 6. Atorvastatin 10 mg p.o. at bedtime. 7. Lasix 60 mg p.o. b.i.d. LABS: Sodium 132, potassium 3.8, chloride 99, CO2 21, BUN 68, creatinine 2.07. Telemetry AV paced. ASSESSMENT 1. Cxdai-su-cjjykqn systolic heart failure. 2. Hyponatremia, improving. 3. Chronic kidney disease. 4. Coronary artery disease, status post coronary artery bypass graft. 5. Diabetes mellitus. 6. Hypertension. 7. Dyslipidemia. RECOMMENDATIONS: Continue current cardiac medications. Nephrology to transition the patient to oral diuretics. Sodium is stable. Free water restriction. Continue current cardiac medications. Otherwise, the patient is not on KEVAN/ARB due to chronic kidney disease. Thank you for this consult. Will continue to follow. Job#: [id number] GEOFFREY
[2017-05-26 12:00] VITALS: BP 115/57
[2017-05-26 16:00] VITALS: BP 103/44
[2017-05-26] MEDS: FUROSEMIDE 40 MG TAB PO SCH (17:22)
[2017-05-26 20:00] VITALS: BP 117/53
[2017-05-26] MEDS: ZOLPIDEM TARTRATE 5 MG TAB PO PRN (21:00)
[2017-05-26] MEDS: ATORVASTATIN 10 MG TAB PO SCH (21:00)
[2017-05-27] VITALS: BP 120/57
[2017-05-27 04:00] VITALS: BP 110/56
[2017-05-27] MEDS: FUROSEMIDE 40 MG TAB PO SCH (05:45)
[2017-05-27] MEDS: LEVOTHYROXINE SODIUM 25 MCG TABLET PO SCH (05:45)
[2017-05-27 07:45] VITALS: BP 117/56
[2017-05-27] MEDS: ASPIRIN 81 MG ENTERIC COATED PO SCH (08:10)
[2017-05-27] MEDS: METOPROLOL SUCCINATE 50 MG TAB XL PO SCH (08:10)
[2017-05-27] MEDS: HEPARIN SOD (PORCINE) 5,000 UNIT/ML VIAL SC SCH (08:10)
[2017-05-27] MEDS: AMIODARONE HCL 200 MG TAB PO SCH (08:10)
[2017-05-27] MEDS: INSULIN REGULAR, HUMAN 100 UNIT/1 ML 3ML VIAL SQ SCH ×2 (08:11→12:00)
--- NOTE | 2017-05-27 09:17 | Discharge Summary ---
CONSULTANTS 1. Dr. Catrina Chicas, nephrology. 2. Dr. Julio Cesar Ruiz, cardiology. PCP: Dr. Randal Lopez FINAL DIAGNOSES 1. Acute-on chronic systolic dysfunction congestive heart failure. 2. Chronic kidney disease, stage 3. 3. Baseline hypertension. 4. Baseline diabetes, type 2, diet control. 5. Paroxysmal atrial fibrillation. 6. Oxygen dependency. SUMMARY OF HOSPITAL COURSE: Patient is a 81-year-old female who came in with wwdig-yv-qqemixc systolic dysfunction congestive heart failure associated with fluid overload and pulmonary edema. Patient was admitted. Baseline chronic kidney disease, stage 3. Patient received diuresis. At home, the patient over-drinks water. Discussed with the patient at length. EF approximately 10% to 15%. She does have an ICD in place. This is an kgrth-cl-krznpmb exacerbation. Patient does have chronic kidney disease, stage 3. Therefore, contraindication with KEVAN inhibitor and ARB due to increasing potassium and worsening renal failure. Patient is doing much better now today. The patient has received oxygen evaluation and qualified for oxygen. Arrangement will be made today. At this time, the patient is stable. She will go home today. Adjustment of medications is made. She will take: 1. Lasix 40 mg twice a day instead of once a day. 2. Zaroxolyn 2.5 mg daily instead of not taking at home. 3. Potassium 8 mEq daily due to worsening potassium if increase in diuretic treatment. I suspect that the patient will not be restricted per recommendation of fluid restriction of 1.2 L per day. Therefore, Zaroxolyn was given. The patient will need to follow up with her family physician, Dr. Lopez, closely for repeat base med level. The patient is otherwise stable at this time. She will discharge home today after oxygen arrangement is made. Please note that no KEVAN inhibitor or ARB due to renal failure. Job#: [id number] GEOFFREY
--- NOTE | 2017-05-27 14:34 | Progress Note ---
DATE: May 27, 2017 CARDIOLOGY PROGRESS NOTE SUBJECTIVE: Patient denies chest pain or shortness of breath. She reports she is going home today once her oxygen is delivered. OBJECTIVE VITALS: Temperature 97.1 degrees, pulse 60, respiratory rate 20, blood pressure 117/56, oxygen saturation 93% on 2 L nasal cannula. GENERAL: Awake, alert and in no acute distress. LUNGS: Clear to auscultation bilaterally. No wheezes or crackles. CARDIOVASCULAR: Normal rate and regular rhythm. No murmur. Normal S1 and S2. ABDOMEN: Soft and nontender. EXTREMITIES: 2+ pitting edema of bilateral lower extremities. CARDIAC MEDICATIONS 1. Metoprolol succinate 50 mg p.o. daily. 2. Amiodarone 100 mg p.o. b.i.d. 3. Aspirin 81 mg p.o. daily. 4. Furosemide 60 mg p.o. b.i.d. 5. Levothyroxine 25 mcg p.o. daily. 6. Atorvastatin 10 mg p.o. at bedtime. LABS: None today. TELEMETRY: AV sequential pacing. IMPRESSION 1. Cjbxs-ui-nsohcxg systolic heart failure. 2. Hyponatremia, improving. 3. Chronic kidney disease. 4. Coronary artery disease, status post coronary artery bypass graft. 5. Diabetes mellitus. 6. Hypertension. 7. Dyslipidemia. RECOMMENDATIONS: Continue current cardiac medications. Continue diuretics and free water restriction. If renal function remains stable, can discuss initiation of KEVAN/ARB as an outpatient. Please have the patient follow up with Dr. Ruiz in the office in 1 week. Thank you for this consult. Will continue to follow. Job#: [id number]
== END 2017-05-27 13:11 | disposition home or self-care (01) | DRG 291 ==
LOC: ER 16:45 → ERHOLD 22:19 → MED/SURG2 05-17 11:30
PROVIDERS: ADMIT Internal Medicine; ATTEND Internal Medicine
DX: I13.0 Hypertensive heart and chronic kidney disease with heart failure and stage 1 through stage 4 chronic kidney disease, or unspecified chronic kidney disease (principal); I50.23 Acute on chronic systolic (congestive) heart failure; N17.9 Acute kidney failure, unspecified; E11.22 Type 2 diabetes mellitus with diabetic chronic kidney disease; E86.0 Dehydration; E87.1 Hypo-osmolality and hyponatremia; I48.0 Paroxysmal atrial fibrillation; E87.5 Hyperkalemia; Z99.81 Dependence on supplemental oxygen; N18.3 Chronic kidney disease, stage 3 (moderate); I25.10 Atherosclerotic heart disease of native coronary artery without angina pectoris; Z95.1 Presence of aortocoronary bypass graft; I25.2 Old myocardial infarction; E78.5 Hyperlipidemia, unspecified; E03.9 Hypothyroidism, unspecified; Z95.810 Presence of automatic (implantable) cardiac defibrillator; Z79.82 Long term (current) use of aspirin
CPT/HCPCS: 36415; 71046; 76770; 80048; 80053; 80061; 82550; 82553; 82948; 83735; 83880; 84443; 84484; 85025; 85610; 85730; 93005; 96372; 99284; J1644; J1940

== ENCOUNTER 2017-06-30 16:18 | Inpatient (IN) | payer MEDICARE ==
[~2017-06-30] VITALS: Ht 157.5 cm; Wt 63.3 kg
--- OUTSIDE RECORDS SUMMARY | 2017-06-30 16:20 | XMS REPORT | Continuity of Care Document ---
Author Author [facility] Organization 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 No 05/17/17 12:58pm If yes, is advance directive on file with [facility]? No 05/17/17 12:58pm If not on file with [facility] will patient provide a copy? No 05/17/17 12:58pm Do you have a Directive to Physician? No 05/16/17 10:17pm Do you have a Medical Power of Global Marketing Coordinator? No 05/16/17 10:17pm Do you have an out of hospital Do Not Resuscitate Order? No 05/16/17 10:17pm Do you have any special needs we should be aware of? No 05/16/17 10:17pm Do you have a support person here with you today? Yes 05/16/17 10:17pm Did patient receive Notice of Privacy Practices? Yes 05/16/17 10:17pm Did patient receive patient rights and responsibilities? Yes 05/16/17 10:17pm Problems Medical Problem Onset Date Status CHF exacerbation Unknown CKD (chronic kidney disease) Unknown Chronic CHF (congestive heart failure) 01/01/2014 Acute Hyperkalemia 01/01/2014 Acute Hyperkalemia Unknown Renal failure (ARF), acute on chronic Unknown UTI (urinary tract infection) Unknown Medications Current Home Medications Medication Dose Units Route Directions Days Qty Instructions Start Date Amiodarone Hcl 200 Mg Tablet 100 Mg Oral Twice A Day Atorvastatin Calcium 10 Mg Tablet 10 Mg Oral Today At 9:00PM 30 Tab Levothyroxine Sodium 50 Mcg Tablet 25 Mcg Oral Daily 30 Tab Metoprolol Tartrate 25 Mg Tablet 25 Mg Oral Twice A Day Past Home Medications Medication Directions Ordered Status Amiodarone Hcl 200 Mg Tablet, 1 Tab Oral Twice A Day Discontinued Amlodipine Besylate 5 Mg Tablet, 5 Mg Oral Daily Discontinued Aspirin (Aspirin Ec) 81 Mg Tablet.dr, 325 Mg Oral Daily Discontinued Clopidogrel Bisulfate (Clopidogrel) 75 Mg Tablet, 75 Mg Oral Daily Discontinued Enalapril Maleate (Vasotec) 10 Mg Tab, 10 Mg Oral Daily Discontinued Fenofibrate,Micronized (Fenofibrate) 134 Mg Capsule, 1 Cap Oral Bedtime Discontinued Furosemide (Lasix) 40 Mg Tablet, 40 Mg Oral Daily Discontinued Furosemide (Lasix) 40 Mg Tablet, 40 Mg Oral Daily Discontinued Furosemide 40 Mg Tablet, 40 Mg Oral Daily Discontinued Insulin Detemir (Levemir 3ML Flexpen*) 100 Units/Ml Inj, 14 Unit Sub-Q Every Morning Discontinued Insulin Detemir (Levemir 3ML Flexpen*) 100 Units/Ml Inj, 30 Unit Sub-Q Every Evening Discontinued Insuln Asp Prt/Insulin Aspart (Novolog Mix 70-30 Flexpen Syrn) 100 Unit/1 Ml Insuln.pen, 8 UnitSub-Q Ac Tid Discontinued Isosorbide Dinitrate 5 Mg Tablet, 5 Mg Oral As Needed Discontinued Losartan Potassium 25 Mg Tablet, 1 Tab Oral Daily Discontinued Meclizine Hcl 12.5 Mg Tablet, 25 Mg Oral Three Times A Day Discontinued Metformin Hcl 850 Mg Tablet, 850 Mg Oral Twice A Day Discontinued Metoprolol Tartrate 100 Mg Tablet, 25 Mg Oral Twice A Day Discontinued Simvastatin 20 Mg Tablet, 20 Mg Oral Today At 9:00PM Discontinued Vascepa , Discontinued Vascepa 1 Gram , 2 Cap Oral Twice A Day Discontinued Social History Social History Problem Response Recorded Date/Time Onset Date Status Hx Psychiatric Problems No 05/17/2017 12:58pm Not Applicable Not Applicable Hx Eating Disorder No 05/17/2017 12:58pm Not Applicable Not Applicable Hx Substance Use Disorder No 05/17/2017 12:58pm Not Applicable Not Applicable Hx Depression No 05/17/2017 12:58pm Not Applicable Not Applicable Hx Alcohol Use No 05/17/2017 12:58pm Not Applicable Not Applicable Hx Substance Use Treatment No 05/17/2017 12:58pm Not Applicable Not Applicable Hx Physical Abuse No 05/17/2017 12:58pm Not Applicable Not Applicable Smoking Status Start Date Stop Date Never Smoker Hospital Discharge Instructions No hospital discharge instruction information available. Plan of Care Discharge Date 05/27/17 1:11pm Disposition HOME, SELF-CARE Instructions/Education Provided Congestive Heart Failure Prescriptions See Medication Section Additional Instructions/Education FOLLOW UP WITH PRIMARY CARE IN 1 WEEK CONTINUE FLUID RESTRICTION INSTRUCTED STACY FORDE Functional Status Query Response Date Recorded FUNCTIONAL STATUS . May 19, 2017 4:29pm Assistive Devices None May 17, 2017 1:03pm Ambulation Ability Independent May 17, 2017 1:03pm Toileting Ability Independent May 26, 2017 5:53pm Allergies, Adverse Reactions, Alerts No known allergies. Immunizations No immunization information available. Vital Signs Acute Vital Signs Vital Response Date/Time Temperature (Fahrenheit) 97.1 degrees F (97.6 - 99.5) 05/27/2017 7:45am Pulse Pulse Rate (adult) 60 bpm (60 - 90) 05/27/2017 7:45am Respiratory Rate 20 bpm (12 - 24) 05/27/2017 7:45am Blood Pressure 117/56 mm Hg 05/27/2017 7:45am Height 5 ft 2 in 05/16/2017 5:28pm Weight 164.50 lb 05/23/2017 12:00am Body Mass Index 30.1 kg/m^2 05/23/2017 12:00am Results Laboratory Results Test Name Result Units Flags Reference Collection Date/Time Result Date/ Time Comments Urine Mucus FEW H RARE 04/14/2017 1:40pm 04/14/2017 3:11pm Differential Total Cells Counted 100 04/19/2017 9:20am 04/19/2017 12:28pm Neutrophils % (Manual) 86 % H 40-74 04/19/2017 9:20am 04/19/2017 12: 28pm Lymphocytes % (Manual) 9 % L 19-48 04/19/2017 9:20am 04/19/2017 12:28pm Monocytes % (Manual) 3 % L 3.4-9.0 04/19/2017 9:20am 04/19/2017 12:28pm Eosinophils % (Manual) 2 % 0-7 04/19/2017 9:20am 04/19/2017 12:28pm Platelet Estimate ADEQUATE 04/19/2017 9:20am 04/19/2017 12:28pm Platelet Morphology Comment NORMAL 04/19/2017 9:20am 04/19/2017 12: 28pm Red Cell Morphology Comment NORMAL 04/19/2017 9:20am 04/19/2017 12: 28pm Urine Color YELLOW YELLOW 04/18/2017 5:39pm 04/18/2017 6:36pm Urine Clarity CLEAR CLEAR 04/18/2017 5:39pm 04/18/2017 6:36pm Urine Specific [place] 1.015 1.010-1.025 04/18/2017 5:39pm 2017 6:36pm Urine pH 5 5 - 7 04/18/2017 5:39pm 04/18/2017 6:36pm Urine Leukocyte Esterase 1+ H NEGATIVE 04/18/2017 5:39pm 04/18/2017 6: 36pm Urine Nitrite NEGATIVE NEGATIVE 04/18/2017 5:39pm 04/18/2017 6:36pm Urine Protein NEGATIVE NEGATIVE 04/18/2017 5:39pm 04/18/2017 6:36pm Urine Glucose (UA) NEGATIVE NEGATIVE 04/18/2017 5:39pm 04/18/2017 6: 36pm Urine Ketones NEGATIVE NEGATIVE 04/18/2017 5:39pm 04/18/2017 6:36pm Urine Urobilinogen 0.2 mg/dL 0.2 - 1 04/18/2017 5:39pm 04/18/2017 6: 36pm Urine Bilirubin NEGATIVE NEGATIVE 04/18/2017 5:39pm 04/18/2017 6: 36pm Urine Blood NEGATIVE NEGATIVE 04/18/2017 5:39pm 04/18/2017 6:36pm Urine WBC 11-20 /HPF H 0-5 04/18/2017 5:39pm 04/18/2017 6:46pm Urine RBC 0-5 /HPF 0-5 04/18/2017 5:39pm 04/18/2017 6:46pm Urine Bacteria FEW /HPF NONE 04/18/2017 5:39pm 04/18/2017 6:46pm Urine Epithelial Cells FEW /LPF NONE 04/18/2017 5:39pm 04/18/2017 6: 46pm White Blood Count 9.90 x10e3/uL 4.8-10.8 05/25/2017 6:27am 05/25/2017 8 :00am Red Blood Count 3.77 x10e6/uL 3.6-5.1 05/25/2017 6:27am 05/25/2017 8: 00am Hemoglobin 9.4 g/dL L 12.0-16.0 05/25/2017 6:05/25/2017 8:00am Hematocrit 31.2 % L 34.2-44.1 05/25/2017 6:05/25/2017 8:00am Mean Corpuscular Volume 82.8 fL 81-99 05/25/2017 6:05/25/2017 8: 00am Mean Corpuscular Hemoglobin 24.9 pg L 28-32 05/25/2017 6:2017 8:00am Mean Corpuscular Hemoglobin Concent 30.1 g/dL L 31-35 05/25/2017 6:05/25/2017 8:00am Red Cell Distribution Width 15.5 % H 11.7-14.4 05/25/2017 6:2017 8:00am Platelet Count 175 x10e3/uL 140-360 05/25/2017 6:05/25/2017 8: 00am Neutrophils (%) (Auto) 78.9 % 38.7-80.0 05/25/2017 6:27am 05/25/2017 8: 00am Lymphocytes (%) (Auto) 10.4 % L 18.0-39.1 05/25/2017 6:2705/25/2017 8 :00am Monocytes (%) (Auto) 7.5 % 4.4-11.3 05/25/2017 6:27am 05/25/2017 8: 00am Eosinophils (%) (Auto) 2.3 % 0.0-6.0 05/25/2017 6:27am 05/25/2017 8: 00am Basophils (%) (Auto) 0.4 % 0.0-1.0 05/25/2017 6:2705/25/2017 8:00am IM GRANULOCYTES % 0.5 % 0.0-1.0 05/25/2017 6:27am 05/25/2017 8:00am Neutrophils # (Auto) 7.8 H 2.1-6.9 05/25/2017 6:05/25/2017 8: 00am Lymphocytes # (Auto) 1.0 1.0-3.2 05/25/2017 6:27am 05/25/2017 8:00am Monocytes # (Auto) 0.7 0.2-0.8 05/25/2017 6:27am 05/25/2017 8:00am Eosinophils # (Auto) 0.2 0.0-0.4 05/25/2017 6:27am 05/25/2017 8:00am Basophils # (Auto) 0.0 0.0-0.1 05/25/2017 6:2705/25/2017 8:00am Absolute Immature Granulocyte (auto 0.05 x10e3/uL 0-0.1 05/25/2017 6: 27am 05/25/2017 8:00am Prothrombin Time 14.7 seconds H 11.9-14.5 05/16/2017 9:45pm 05/16/2017 10:06pm Prothromb Time International Ratio 1.09 05/16/2017 9:45pm 2017 10:06pm Oral Anticoagulant Therapy INR Values: 1. Low Intensity Therapy 1.5 - 2.0 2. Moderate Intensity Therapy 2.0 - 3.0 3. High Intensity Therapy(1) 2.5 - 3.5 4. High Intensity Therapy(2) 3.0 - 4.0 5. Panic Value INR > 5.0 Activated Partial Thromboplast Time 31.2 seconds 23.8-35.5 05/16/2017 9: 45pm 05/16/2017 10:08pm Sodium Level 132 mmol/L L 136-145 05/25/2017 6:05/25/2017 8:08am Potassium Level 3.8 mmol/L 3.5-5.1 05/25/2017 6:05/25/2017 8:08am Chloride Level 99 mmol/L 98-107 05/25/2017 6:05/25/2017 8:08am Carbon Dioxide Level 21 mmol/L L 22-29 05/25/2017 6:05/25/2017 8: 08am Anion Gap 15.8 mmol/L 8-16 05/25/2017 6:05/25/2017 8:08am Blood Urea Nitrogen 68 mg/dL H 7-05/25/2017 6:05/25/2017 8:08am Creatinine 2.07 mg/dL H 0.57-1.11 05/25/2017 6:05/25/2017 8:08am BUN/Creatinine Ratio 33 H 6-05/25/2017 6:05/25/2017 8:08am Estimat Glomerular Filtration Rate 23 ML/MIN L 60- 05/25/2017 6:02/2018 8:08am Ranges were taken from the National Kidney Disease Education Program and the National Kid[employer] Foundation literature. Reference ranges: 60 or greater: Normal 16-59 (for 3 consecutive months): Chronic kidney disease 15 or less: Kidney failure Glucose Level 139 mg/dL H 74-118 05/25/2017 6:am 05/25/2017 8:08am Calcium Level 8.2 mg/dL L 8.4-10.2 05/25/2017 6:05/25/2017 8:08am Bedside Glucose 225 mg/dL H 70-120 05/27/2017 11:09am 05/27/2017 11: 45am Meter ID: [id number] Magnesium Level 2.4 MG/DL H 1.3-2.1 05/18/2017 5:30am 05/18/2017 6:39am Total Bilirubin 1.1 mg/dL 0.2-1.2 05/24/2017 6:08am 05/24/2017 7:24am Aspartate Amino Transf (AST/SGOT) 49 IU/L H 5-34 05/24/2017 6:08am 05/24 7:24am Alanine Aminotransferase (ALT/SGPT) 43 IU/L 0-55 05/24/2017 6:08am 01/2018 7:24am Total Protein 6.2 g/dL L 6.5-8.1 05/24/2017 6:08am 05/24/2017 7:24am Albumin 3.4 g/dL L 3.5-5.0 05/24/2017 6:0805/24/2017 7:24am Globulin 2.8 g/dL 2.3-3.5 05/24/2017 6:0805/24/2017 7:24am Albumin/Globulin Ratio 1.2 0.8-2.0 05/24/2017 6:08am 05/24/2017 7: 24am Alkaline Phosphatase 86 IU/L 40-150 05/24/2017 6:08am 05/24/2017 7: 24am Triglycerides Level 114 MG/DL 0-149 05/17/2017 6:55am 05/17/2017 7: 42am Cholesterol Level 97 MD/DL 0-199 05/17/2017 6:55am 05/17/2017 7:42am Less than 200 mg/dL Low Risk 201 - 239 mg/dL Borderline Risk 240 mg/dl and greater High Risk LDL Cholesterol 40 MG/DL L 60-130 05/17/2017 6:55am 05/17/2017 7:42am HDL Cholesterol 34 MG/DL L 40-60 05/17/2017 6:55am 05/17/2017 7:42am Cholesterol/HDL Ratio 2.9 L 3.0-3.6 05/17/2017 6:55am 05/17/2017 7: 42am B-Type Natriuretic Peptide 2142.4 pg/mL H 0-100 05/23/2017 6:13am 2017 7:16am Creatine Kinase 98 IU/L 29-168 05/17/2017 12:19pm 05/17/2017 1:10pm Creatine Kinase MB 7.60 ng/mL H 0.00-5.00 05/17/2017 12:19pm 05/17/2017 1:23pm Troponin I 0.031 ng/mL 0-0.300 05/17/2017 12:19pm 05/17/2017 1:23pm Thyroid Stimulating Hormone (TSH) 5.913 uIU/mL H 0.350-4.940 05/16/2017 5 :23pm 05/16/2017 6:53pm Procedures Procedure Status Date Provider(s) X-ray of chest, single view Active 04/14/17 DERREK HA MD Computed tomography of brain without radiopaque contrast Active 04/14/17 DERREK HA MD X-ray of chest, single view Active 04/18/17 LEIGH MORELAND MD X-ray of chest, two views Active 05/16/17 NESHA CASTRO Ultrasound, renal Active 05/22/17 CRUZ BENOIT MD Encounters Encounter Location Arrival/Admit Date Discharge/Depart Date Attending Provider Discharged [facility]patient [facility] 05/16/17 10:19pm 1:11pm CRUZ BENOIT MD Discharged [facility]patient [facility] 04/19/17 12:45am 2:17pm CRUZ BENOIT MD Departed Emergency [facility] 04/14/17 12:57pm 04/14 8:19pm DERREK HA MD Departed Emergency [facility] 01/07/17 3:43pm 8:59pm ELLE INIGUEZ MD
--- NOTE | 2017-06-30 18:50 | Diagnostic Imaging Report ---
PROCEDURE: X-RAY CHEST, TWO VIEWS COMPARISON: Patients [facility], DX, CHEST 2 VIEWS, 05/16/2017, 17:50. INDICATIONS: FLUID IN LUNGS FINDINGS: LUNGS: Increasing vascular congestion. Stable eventration of right diaphragm. No consolidation. PLEURA: No effusions or pneumothorax. HEART \T\ MEDIASTINUM: Stable cardiomegaly. Cardiac leads are stable. Stable aortic ectasia. BONES \T\ SOFT TISSUES: Median sternotomy wires are intact. No focal osseous lesions. CONCLUSION: Increasing pulmonary vascular congestion. Stable cardiomegaly and eventration of right diaphragm. Dictated by: Suma Vanegas M.D. on 06/30/2017 at 18:51 Electronically approved by: Suma Vanegas M.D. on 06/30/2017 at 18:51
[2017-06-30 20:56] LABS: BILIRUBIN,URINE 1+ (NEGATIVE); COLOR,URINE YELLOW (YELLOW); KETONES,URINE NEGATIVE (NEGATIVE); LEUKOCYTE ESTERASE ,URINE NEGATIVE (NEGATIVE); NITRITE,URINE NEGATIVE (NEGATIVE); PROTEIN,URINE DIPSTICK NEGATIVE (NEGATIVE); URINE UROBILINOGEN 0.2 mg/dL (0.2 - 1)
[2017-06-30 21:00] LABS: CLARITY,URINE SL CLOUDY (CLEAR)
[2017-06-30 21:14] LABS: BACTERIA,URINE MODERATE /HPF; EPITHELIAL CELLS,URINE MANY /LPF; WBC,URINE (MAN) 0-5 /HPF (0-5)
[2017-06-30 21:44] LABS: BASOPHILS % 0.2 % (0.0-1.0); EOSINOPHILS # (AUTO) 0.3 (0.0-0.4); EOSINOPHILS % 2.3 % (0.0-6.0); HEMATOCRIT 34.6 % (34.2-44.1); HEMOGLOBIN 10.8 g/dL (12.0-16.0); LYMPHOCYTES # (AUTO) 0.9 (1.0-3.2); LYMPHOCYTES % 6.9 % (18.0-39.1); MEAN CORPUSCULAR HEMOGLOBIN 23.2 pg (28-32); MEAN CORPUSCULAR HGB CONC 31.2 g/dL (31-35); MEAN CORPUSCULAR VOLUME 74.4 fL (81-99); MONOCYTES # (AUTO) 0.9 (0.2-0.8); MONOCYTES % 6.9 % (4.4-11.3); NEUTROPHILS # (AUTO) 10.3 (2.1-6.9); NEUTROPHILS % 83.1 % (38.7-80.0); PLATELET COUNT 311 x10e3/uL (140-360); RED BLOOD COUNT 4.65 x10e6/uL (3.6-5.1); RED CELL DISTRIBUTION WIDTH 16.6 % (11.7-14.4)
[2017-06-30 22:06] LABS: CREATINE KINASE MB 2.1 ng/mL (0-5.0)
[2017-06-30 22:08] LABS: ALBUMIN 3.9 g/dL (3.5-5.0); ALBUMIN/GLOBULIN RATIO 1.1 (0.8-2.0); ANION GAP 20.7 mmol/L (8-16); CREATININE, SERUM 3.17 mg/dL (0.57-1.11); POTASSIUM 3.7 mmol/L (3.5-5.1)
[2017-06-30] MEDS ORDERED: ONDANSETRON HCL INJ 2 MG/ML VIAL IV PRN (23:45)
[2017-06-30] MEDS ORDERED: FUROSEMIDE INJ 10 MG/ML 4 ML VIAL IV ONE (23:45)
[2017-06-30] MEDS ORDERED: DEXTROSE 50% SYRINGE 50 ML IV PRN (23:45)
[2017-07-01] VITALS (8 sets, daily range): BP systolic 117–140; BP diastolic 57–64
[2017-07-01 07:06] LABS: BASOPHILS % 0.3 % (0.0-1.0); EOSINOPHILS # (AUTO) 0.2 (0.0-0.4); HEMOGLOBIN 9.9 g/dL (12.0-16.0); LYMPHOCYTES # (AUTO) 0.7 (1.0-3.2); LYMPHOCYTES % 6.7 % (18.0-39.1); MEAN CORPUSCULAR HEMOGLOBIN 23.2 pg (28-32); MEAN CORPUSCULAR HGB CONC 30.9 g/dL (31-35); MEAN CORPUSCULAR VOLUME 75.1 fL (81-99); MONOCYTES # (AUTO) 0.7 (0.2-0.8); MONOCYTES % 7.1 % (4.4-11.3); NEUTROPHILS # (AUTO) 8.6 (2.1-6.9); NEUTROPHILS % 83.6 % (38.7-80.0); PLATELET COUNT 275 x10e3/uL (140-360); RED BLOOD COUNT 4.26 x10e6/uL (3.6-5.1); RED CELL DISTRIBUTION WIDTH 16.6 % (11.7-14.4)
[2017-07-01] MEDS: INSULIN REGULAR, HUMAN 100 UNIT/1 ML 3ML VIAL SQ SCH ×4 (07:30→21:30)
[2017-07-01 07:42] LABS: CREATINE KINASE MB 1.6 ng/mL (0-5.0)
[2017-07-01 07:51] LABS: ALBUMIN 3.4 g/dL (3.5-5.0); ANION GAP 17.5 mmol/L (8-16); CALCIUM 8.6 mg/dL (8.4-10.2); CREATININE, SERUM 2.85 mg/dL (0.57-1.11); POTASSIUM 3.5 mmol/L (3.5-5.1)
--- NOTE | 2017-07-01 10:40 | Consultation ---
DATE OF CONSULTATION: July 01, 2017 Ms. Ayanna Nunez is well known to me. A 81-year-old female with underlying history of CKD, 3, congestive heart failure, type 2 diabetes with end-organ damage, hypothyroidism, hypertension, hyperlipidemia, congestive heart failure, who presented with congestive heart failure. Currently, laying supine. No apparent distress on oxygen. Renal consulted for management of kidney failure. Her primary complaint was shortness of breath. Labs show white count 10.2, hemoglobin is stable at 9.9. Sodium 129, potassium 3.5, bicarbonate 25, BUN 114, and creatinine 2.85. She was recently here and discharged from the hospital where her discharge creatinine as of May 25, 2017, was 2.07. Chest x-ray findings, please see official report. Shows evidence of pulmonary edema. ALLERGIES: NO APPARENT DRUG ALLERGIES. CURRENT MEDICATIONS: Please see MAR for details. Currently, received 1 dose of furosemide, insulin and ondansetron p.r.n. SOCIAL HISTORY: Does not smoke or drink. FAMILY HISTORY: Significant for diabetes. PHYSICAL EXAMINATION GENERAL: Awake, alert and laying supine. VITALS: Blood pressure 130/60, pulse rate 60. HEAD AND NECK: Cornea clear. Oral mucosa dry. LUNGS: Bibasilar rales. HEART: S1 and S2 audible. ABDOMEN: Otherwise, soft and nontender. LOWER EXTREMITIES: No edema. IMPRESSION 1. Coronary artery bypass surgery. 2. History of automatic implanted cardioverter defibrillator pacemaker. 3. History of congestive heart failure. 3. Rlspc-kh-gywopgw kidney failure now with congestive heart failure. PLAN: Diuresis. BUN and creatinine noted. No acute indications for dialysis. Discussed with the patient. Strict intake and output requested. Patient to be on a cardiac at this point in time. Please see orders. Job#: [id number] RI
[2017-07-01] MEDS: FUROSEMIDE INJ 10 MG/ML 4 ML VIAL IV SCH ×2 (14:00→22:00)
--- NOTE | 2017-07-01 15:07 | Diagnostic Imaging Report ---
PROCEDURE:US RETROPERITONEAL ( KIDNEY ). COMPARISON:Patients [facility], CT, CT CHEST WO, 05/29/2016, 17:32. Patients [facility], US, US RETROPERITONEAL ( KIDNEY )., 05/22/2017, 15:35. INDICATIONS:RENAL FAILURE TECHNIQUE: Alcantara-scale and color sonographic images of the bilateral kidneys and bladder where obtained in transverse and longitudinal planes. FINDINGS: RIGHT KIDNEY: 9.7 cm, cortex 1.0 cm Cysts: None Solid masses: None Stones: None Hydronephrosis: None. 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 Echogenicity: Normal LEFT KIDNEY: 9.5 cm, cortex 1.3 cm Cysts: None Solid masses: None Stones: None Hydronephrosis: None. 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 Echogenicity: Normal Bladder: No focal lesions. No wall thickening. CONCLUSION: 1. Normal bilateral renal size, and echogenicity. No hydronephrosis, stones, or solid masses. 2. 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 Dictated by: Vj Jane M.D. on 07/01/2017 at 15:08 Electronically approved by: Vj Jane M.D. on 07/01/2017 at 15:08
[2017-07-01] MEDS: METOPROLOL TARTRATE 25 MG TAB PO SCH (17:00)
[2017-07-01] MEDS: AMIODARONE HCL 200 MG TAB PO SCH (17:00)
[2017-07-01] MEDS: ATORVASTATIN 10 MG TAB PO SCH (21:30)
[2017-07-02] VITALS: BP 102/53
[2017-07-02 03:46] VITALS: BP 103/50
[2017-07-02] MEDS: FUROSEMIDE INJ 10 MG/ML 4 ML VIAL IV SCH ×3 (05:59→22:45)
[2017-07-02] MEDS: LEVOTHYROXINE SODIUM 25 MCG TABLET PO SCH (05:59)
[2017-07-02 07:08] LABS: MAGNESIUM 2.1 MG/DL (1.3-2.1)
[2017-07-02 07:29] LABS: ALBUMIN 3.3 g/dL (3.5-5.0); ALBUMIN/GLOBULIN RATIO 1.1 (0.8-2.0); ANION GAP 15.6 mmol/L (8-16); CALCIUM 8.6 mg/dL (8.4-10.2); CREATININE, SERUM 2.59 mg/dL (0.57-1.11); POTASSIUM 3.6 mmol/L (3.5-5.1)
[2017-07-02] MEDS: INSULIN REGULAR, HUMAN 100 UNIT/1 ML 3ML VIAL SQ SCH ×4 (07:30→21:35)
[2017-07-02 07:37] LABS: THYROID STIMULATING HORMONE 3.76 uIU/mL (0.350-4.940)
[2017-07-02 08:04] VITALS: BP 119/55
[2017-07-02] MEDS: METOPROLOL TARTRATE 25 MG TAB PO SCH ×2 (09:00→17:00)
[2017-07-02] MEDS: AMIODARONE HCL 200 MG TAB PO SCH ×2 (09:00→17:00)
[2017-07-02] MEDS ORDERED: LEVOTHYROXINE SODIUM 50 MCG TAB PO SCH (09:00)
[2017-07-02 12:11] VITALS: BP 115/52
[2017-07-02 16:16] VITALS: BP 125/58
[2017-07-02 20:00] VITALS: BP 122/57
[2017-07-02] MEDS: ACETAMINOPHEN 325 MG TAB PO PRN (21:15)
[2017-07-02] MEDS: ATORVASTATIN 10 MG TAB PO SCH (21:26)
[2017-07-03] VITALS: BP 134/59
[2017-07-03 00:18] VITALS: BP 134/59
[2017-07-03 04:00] VITALS: BP 119/53
[2017-07-03] MEDS: FUROSEMIDE INJ 10 MG/ML 4 ML VIAL IV SCH ×3 (05:46→21:20)
[2017-07-03] MEDS: LEVOTHYROXINE SODIUM 25 MCG TABLET PO SCH (05:46)
[2017-07-03 07:28] LABS: ALBUMIN 3.4 g/dL (3.5-5.0); ANION GAP 16.7 mmol/L (8-16); CALCIUM 8.8 mg/dL (8.4-10.2); CREATININE, SERUM 2.63 mg/dL (0.57-1.11); POTASSIUM 3.7 mmol/L (3.5-5.1)
[2017-07-03 07:51] VITALS: BP 130/63
[2017-07-03] MEDS: AMIODARONE HCL 200 MG TAB PO SCH ×2 (08:18→18:01)
[2017-07-03] MEDS: INSULIN REGULAR, HUMAN 100 UNIT/1 ML 3ML VIAL SQ SCH ×4 (08:19→21:10)
[2017-07-03] MEDS: METOPROLOL TARTRATE 25 MG TAB PO SCH ×2 (08:19→18:04)
[2017-07-03] MEDS: ACETAMINOPHEN 325 MG TAB PO PRN ×2 (09:32→20:54)
[2017-07-03 11:41] VITALS: BP 112/22
[2017-07-03 16:24] VITALS: BP 115/53
[2017-07-03] MEDS: ATORVASTATIN 10 MG TAB PO SCH (20:54)
[2017-07-04] VITALS (9 sets, daily range): BP systolic 109–141; BP diastolic 53–62
[2017-07-04] MEDS: LEVOTHYROXINE SODIUM 25 MCG TABLET PO SCH (06:40)
[2017-07-04] MEDS: FUROSEMIDE INJ 10 MG/ML 4 ML VIAL IV SCH ×3 (06:40→20:11)
[2017-07-04] MEDS: INSULIN REGULAR, HUMAN 100 UNIT/1 ML 3ML VIAL SQ SCH ×4 (07:30→20:04)
[2017-07-04] MEDS: METOPROLOL TARTRATE 25 MG TAB PO SCH ×2 (09:00→17:00)
[2017-07-04] MEDS: AMIODARONE HCL 200 MG TAB PO SCH ×2 (09:19→18:11)
[2017-07-04] MEDS: ACETAMINOPHEN 325 MG TAB PO PRN ×2 (11:33→22:35)
[2017-07-04] MEDS: ATORVASTATIN 10 MG TAB PO SCH ×2 (20:03→20:11)
[2017-07-05] VITALS: BP 104/56
[2017-07-05 04:00] VITALS: BP 105/58
[2017-07-05] MEDS: LEVOTHYROXINE SODIUM 25 MCG TABLET PO SCH (05:45)
[2017-07-05] MEDS: FUROSEMIDE INJ 10 MG/ML 4 ML VIAL IV SCH (05:45)
[2017-07-05 07:15] VITALS: BP 115/53
[2017-07-05] MEDS: INSULIN REGULAR, HUMAN 100 UNIT/1 ML 3ML VIAL SQ SCH ×2 (07:30→11:30)
[2017-07-05 08:02] VITALS: BP 115/53
[2017-07-05] MEDS: METOPROLOL TARTRATE 25 MG TAB PO SCH (09:00)
[2017-07-05] MEDS: AMIODARONE HCL 200 MG TAB PO SCH (09:35)
[2017-07-05] MEDS: ACETAMINOPHEN 325 MG TAB PO PRN (12:05)
[2017-07-05 12:06] VITALS: BP 135/62
--- NOTE | 2017-07-06 09:33 | Discharge Summary ---
PCP: Dr. Randal Lopez FINAL DIAGNOSES: 1. [id number] systolic dysfunction, congestive heart failure. 2. Acute kidney injury on chronic kidney disease secondary to vascular congestion. SUMMARY: A 81-year-old female with chronic kidney disease, stage 4, refused dialysis all preparation. The patient came in with fluid overload, pulmonary venous congestion, pulmonary edema with ijhgj-[id number] systolic dysfunction, congestive heart failure. The patient takes multiple antidiuretic at home including furosemide and Zaroxolyn. Apparently, she was over drinking of water, thought it may be good for the patient. Discussed with the patient and spouse today at length again. Patient needs fluid restriction. She expressed understanding. The patient is stable and discharged home today. Resume home medications. Job#: [id number]
== END 2017-07-05 13:55 | disposition home or self-care (01) | DRG 291 ==
LOC: ER 16:18 → ERHOLD 07-01 00:01 → MED/SURG3 07-01 00:43
PROVIDERS: ADMIT Internal Medicine; ATTEND Internal Medicine
DX: I13.0 Hypertensive heart and chronic kidney disease with heart failure and stage 1 through stage 4 chronic kidney disease, or unspecified chronic kidney disease (principal); I50.23 Acute on chronic systolic (congestive) heart failure; N18.4 Chronic kidney disease, stage 4 (severe); N17.9 Acute kidney failure, unspecified; E11.22 Type 2 diabetes mellitus with diabetic chronic kidney disease; Z95.1 Presence of aortocoronary bypass graft; E78.5 Hyperlipidemia, unspecified; I25.10 Atherosclerotic heart disease of native coronary artery without angina pectoris; E03.9 Hypothyroidism, unspecified; I25.2 Old myocardial infarction; Z95.810 Presence of automatic (implantable) cardiac defibrillator
CPT/HCPCS: 36415; 71046; 76770; 80053; 81001; 82550; 82553; 82607; 82948; 83036; 83735; 83880; 84100; 84443; 84484; 85025; 93005; 99284; J1940

== ENCOUNTER 2017-08-23 01:36 | Inpatient (IN) | payer MEDICARE ==
[~2017-08-23] VITALS: Ht 165.1 cm; Wt 63.3 kg
--- OUTSIDE RECORDS SUMMARY | 2017-08-23 01:38 | XMS REPORT | Continuity of Care Document ---
Author Author [facility] Organization [facility] Address [address] [place] [address] Phone Unavailable Care Team Providers Care Hotel Staff Member Name Role Phone SAFIA POWERS MD PCP Insurance Providers Guarantor Lyudmila Nunez Address [address] [address] Email PT DECLINED Payer [employer] Medicare Advantage Policy Number [id number] Subscriber's Name Lyudmila Nunez Relationship 18 Self / Same As Patient Group Name RETIRED Effective Date 17 Advance Directives Directive Response Recorded Date/Time Does the patient have an advance directive? No 07/01/17 3:58am If yes, is advance directive on file with [facility]? No 05/17/17 12:58pm If not on file with [facility] will patient provide a copy? No 05/17/17 12:58pm Do you have a Directive to Physician? No 06/30/17 5:09pm Do you have a Medical Power of Acid Splicer? No 06/30/17 5:09pm Do you have an out of hospital Do Not Resuscitate Order? No 06/30/17 5:09pm Do you have any special needs we should be aware of? No 06/30/17 5:09pm Do you have a support person here with you today? No 06/30/17 5:09pm Did patient receive Notice of Privacy Practices? Yes 06/30/17 5:09pm Did patient receive patient rights and responsibilities? Yes 06/30/17 5:09pm Problems Medical Problem Onset Date Status CHF exacerbation Unknown CKD (chronic kidney disease) Unknown Chronic CHF (congestive heart failure) 01/01/2014 Acute Hyperkalemia 01/01/2014 Acute Hyperkalemia Unknown Pulmonary venous congestion Unknown Renal failure (ARF), acute on chronic [...] Onset Date Status Hx Psychiatric Problems No 07/01/2017 3:58am Not Applicable Not Applicable Hx Eating Disorder No 07/01/2017 3:58am Not Applicable Not Applicable Hx Substance Use Disorder No 07/01/2017 3:58am Not Applicable Not Applicable Hx Depression No 07/01/2017 3:58am Not Applicable Not Applicable Hx Alcohol Use No 07/01/2017 3:58am Not Applicable Not Applicable Hx Substance Use Treatment No 07/01/2017 3:58am Not Applicable Not Applicable Hx Physical Abuse No 07/01/2017 3:58am Not Applicable Not Applicable Smoking Status Start Date Stop Date Never Smoker Hospital Discharge Instructions No hospital discharge instruction information available. Plan of Care Discharge Date 07/05/17 1:55pm Disposition HOME, SELF-CARE Instructions/Education Provided Kidney Failure Prescriptions See Medication Section Additional Instructions/Education ADA DIET TOLERATED ACTIVITY TOLERATED. RESUME HOME MEDICATION FOLLOW UP WITH YOUR PRIMARY CARE PHYSICIAN IN 1-2 WEEKS. Functional Status Query Response Date Recorded Assistive Devices Rolling Walker July 01, 2017 3:51am Ambulation Ability Minimum Assistance July 01, 2017 3:51am Toileting Ability Minimum Assistance July 04, 2017 8:09pm Allergies, Adverse Reactions, Alerts No known allergies. Immunizations No immunization information available. Vital Signs Acute Vital Signs Vital Response Date/Time Temperature (Fahrenheit) 95.5 degrees F (97.6 - 99.5) 07/05/2017 12:06pm Pulse Pulse Rate (adult) 60 bpm (60 - 90) 07/05/2017 12:06pm Respiratory Rate 16 bpm (12 - 24) 07/05/2017 12:06pm Blood Pressure 135/62 mm Hg 07/05/2017 12:06pm Height 5 ft 2 in 06/30/2017 5:04pm Weight 139.56 lb 07/03/2017 12:30am Body Mass Index 25.5 kg/m^2 07/03/2017 12:30am Results Laboratory Results Test Name Result Units [...] Comment NORMAL 04/19/2017 9:20am 04/19/2017 12: 28pm Prothrombin Time 14.7 seconds H 11.9-14.5 05/16/2017 [...] seconds 23.8-35.5 05/16/2017 9: 45pm 05/16/2017 10:08pm Triglycerides Level 114 MG/DL 0-149 05/17/2017 6:55am [...] L 3.0-3.6 05/17/2017 6:55am 05/17/2017 7: 42am White Blood Count 10.27 x10e3/uL 4.8-10.8 07/01/2017 6:48am 07/01/2017 7:21am Red Blood Count 4.26 x10e6/uL 3.6-5.1 07/01/2017 6:48am 07/01/2017 7: 21am Hemoglobin 9.9 g/dL L 12.0-16.0 07/01/2017 6:48am 07/01/2017 7:21am Hematocrit 32.0 % L 34.2-44.1 07/01/2017 6:48am 07/01/2017 7:21am Mean Corpuscular Volume 75.1 fL L 81-99 07/01/2017 6:48am 07/01/2017 7: 21am Mean Corpuscular Hemoglobin 23.2 pg L 28-32 07/01/2017 6:48am 2017 7:21am Mean Corpuscular Hemoglobin Concent 30.9 g/dL L 31-35 07/01/2017 6:48am 07/01/2017 7:21am Red Cell Distribution Width 16.6 % H 11.7-14.4 07/01/2017 6:48am 2017 7:21am Platelet Count 275 x10e3/uL 140-360 07/01/2017 6:48am 07/01/2017 7: 21am Neutrophils (%) (Auto) 83.6 % H 38.7-80.0 07/01/2017 6:48am 07/01/2017 7 :21am Lymphocytes (%) (Auto) 6.7 % L 18.0-39.1 07/01/2017 6:48am 07/01/2017 7: 21am Monocytes (%) (Auto) 7.1 % 4.4-11.3 07/01/2017 6:48am 07/01/2017 7: 21am Eosinophils (%) (Auto) 2.0 % 0.0-6.0 07/01/2017 6:48am 07/01/2017 7: 21am Basophils (%) (Auto) 0.3 % 0.0-1.0 07/01/2017 6:48am 07/01/2017 7:21am IM GRANULOCYTES % 0.3 % 0.0-1.0 07/01/2017 6:48am 07/01/2017 7:21am Neutrophils # (Auto) 8.6 H 2.1-6.9 07/01/2017 6:48am 07/01/2017 7: 21am Lymphocytes # (Auto) 0.7 L 1.0-3.2 07/01/2017 6:48am 07/01/2017 7: 21am Monocytes # (Auto) 0.7 0.2-0.8 07/01/2017 6:48am 07/01/2017 7:21am Eosinophils # (Auto) 0.2 0.0-0.4 07/01/2017 6:48am 07/01/2017 7:21am Basophils # (Auto) 0.0 0.0-0.1 07/01/2017 6:48am 07/01/2017 7:21am Absolute Immature Granulocyte (auto 0.03 x10e3/uL 0-0.1 07/01/2017 6: 48am 07/01/2017 7:21am Urine Color YELLOW YELLOW 06/30/2017 7:07pm 06/30/2017 9:00pm Urine Clarity SL CLOUDY CLEAR 06/30/2017 7:07pm 06/30/2017 9:00pm Urine Specific [place] 1.015 1.010-1.025 06/30/2017 7:07pm 2017 9:00pm Urine pH 5 5 - 7 06/30/2017 7:07pm 06/30/2017 9:00pm Urine Leukocyte Esterase NEGATIVE NEGATIVE 06/30/2017 7:07pm 2017 9:00pm Urine Nitrite NEGATIVE NEGATIVE 06/30/2017 7:07pm 06/30/2017 9:00pm Urine Protein NEGATIVE NEGATIVE 06/30/2017 7:07pm 06/30/2017 9:00pm Urine Glucose (UA) NEGATIVE NEGATIVE 06/30/2017 7:07pm 06/30/2017 9: 00pm Urine Ketones NEGATIVE NEGATIVE 06/30/2017 7:07pm 06/30/2017 9:00pm Urine Urobilinogen 0.2 mg/dL 0.2 - 1 06/30/2017 7:07pm 06/30/2017 9: 00pm Urine Bilirubin 1+ H NEGATIVE 06/30/2017 7:07pm 06/30/2017 9:00pm Urine Blood NEGATIVE NEGATIVE 06/30/2017 7:07pm 06/30/2017 9:00pm Urine WBC 0-5 /HPF 0-5 06/30/2017 7:07pm 06/30/2017 9:14pm Urine RBC NONE /HPF 0-5 06/30/2017 7:07pm 06/30/2017 9:14pm Urine Bacteria MODERATE /HPF H NONE 06/30/2017 7:07pm 06/30/2017 9:14pm Urine Epithelial Cells MANY /LPF NONE 06/30/2017 7:07pm 06/30/2017 9: 14pm Sodium Level 135 mmol/L L 136-145 07/03/2017 6:35am 07/03/2017 7:30am Potassium Level 3.7 mmol/L 3.5-5.1 07/03/2017 6:35am 07/03/2017 7:30am Chloride Level 93 mmol/L L 98-107 07/03/2017 6:35am 07/03/2017 7:30am Carbon Dioxide Level 29 mmol/L 22-07/03/2017 6:35am 07/03/2017 7: 30am Anion Gap 16.7 mmol/L H 8-16 07/03/2017 6:35am 07/03/2017 7:30am Blood Urea Nitrogen 119 mg/dL H 7-26 07/03/2017 6:35am 07/03/2017 7: 30am Creatinine 2.63 mg/dL H 0.57-1.11 07/03/2017 6:35am 07/03/2017 7:30am BUN/Creatinine Ratio 45 H 6-25 07/03/2017 6:35am 07/03/2017 7:30am Estimat Glomerular Filtration Rate 18 ML/MIN L 60- 07/03/2017 6:35am 7:30am Ranges were taken from the National Kidney Disease Education Program and the National Kidney Foundation literature. Reference ranges: 60 or greater: Normal 16-59 (for 3 consecutive months): Chronic kidney disease 15 or less: Kidney failure Glucose Level 196 mg/dL H 74-118 07/03/2017 6:35am 07/03/2017 7:30am Calcium Level 8.8 mg/dL 8.4-10.2 07/03/2017 6:35am 07/03/2017 7:30am Bedside Glucose 270 mg/dL H 70-120 07/05/2017 7:22am 07/05/2017 7:56am Meter ID: [id number] Hemoglobin A1c Percent 7.1 % H 4.0-7.0 07/02/2017 6:41am 07/02/2017 7: 00am Phosphorus Level 4.0 MG/DL 2.3-4.7 07/02/2017 6:41am 07/02/2017 7:10am Magnesium Level 2.1 MG/DL 1.3-2.1 07/02/2017 6:41am 07/02/2017 7:10am Total Bilirubin 1.1 mg/dL 0.2-1.2 07/03/2017 6:35am 07/03/2017 7:30am Aspartate Amino Transf (AST/SGOT) 55 IU/L H 5-34 07/03/2017 6:35am 07/03 7:30am Alanine Aminotransferase (ALT/SGPT) 47 IU/L 0-55 07/03/2017 6:35am 7:30am Total Protein 6.8 g/dL 6.5-8.1 07/03/2017 6:35am 07/03/2017 7:30am Albumin 3.4 g/dL L 3.5-5.0 07/03/2017 6:35am 07/03/2017 7:30am Globulin 3.4 g/dL 2.3-3.5 07/03/2017 6:35am 07/03/2017 7:30am Albumin/Globulin Ratio 1.0 0.8-2.0 07/03/2017 6:35am 07/03/2017 7: 30am Alkaline Phosphatase 93 IU/L 40-150 07/03/2017 6:35am 07/03/2017 7: 30am B-Type Natriuretic Peptide 2308.0 pg/mL H 0-100 06/30/2017 9:40pm 2017 10:08pm Creatine Kinase 44 IU/L 29-168 07/01/2017 3:15pm 07/01/2017 3:45pm Creatine Kinase MB 2.00 ng/mL 0-5.0 07/01/2017 3:15pm 07/01/2017 3: 54pm Troponin I 0.055 ng/mL 0-0.300 07/01/2017 3:15pm 07/01/2017 3:54pm Vitamin B12 Level 365 pg/mL 213-816 07/02/2017 6:41am 07/02/2017 7: 57am Thyroid Stimulating Hormone (TSH) 3.760 uIU/mL 0.350-4.940 07/02/2017 6: 41am 07/02/2017 7:39am Procedures Procedure Status Date Provider(s) X-ray of chest, single view Active 04/14/17 DERREK HA MD Computed tomography of brain without radiopaque contrast Active 04/14/17 DERREK HA MD X-ray of chest, single view Active 04/18/17 LEIGH MORELAND MD X-ray of chest, two views Active 05/16/17 NESHA CASTRO Ultrasound, renal Active 05/22/17 CRUZ BENOIT MD X-ray of chest, two views Active 06/30/17 DERREK HA MD Ultrasound, renal Active 07/01/17 ELI WAGNER MD Encounters Encounter Location Arrival/Admit Date Discharge/Depart Date Attending Provider Discharged Inpatient [facility] 07/01/17 12:01am 1:55pm CRUZ BENOIT MD Discharged Inpatient [facility] 05/16/17 10:19pm 1:11pm CRUZ BENOIT MD Discharged Inpatient [facility] 04/19/17 12:45am 2:17pm CRUZ BENOIT MD Departed Emergency Room [facility] 04/14/17 12:57pm 04/14 8:19pm DERREK HA MD Departed Emergency Room [facility] 01/07/17 3:43pm 8:59pm ELLE INIGUEZ MD
[2017-08-23] MEDS ORDERED: ACETAMINOPHEN1 EACH PO (02:26)
[2017-08-23] MEDS ORDERED: FUROSEMIDE40 MG PO (02:26)
[2017-08-23] MEDS ORDERED: MINOCYCLINE HC100 MG PO (02:26)
[2017-08-23] MEDS ORDERED: METOLAZONE5 MG PO (02:26)
[2017-08-23] MEDS ORDERED: AMIODARONE HCL200 MG PO (02:26)
[2017-08-23] MEDS ORDERED: HUMALOG100 UNIT/1 SQ (02:26)
[2017-08-23] MEDS ORDERED: TYLENOL WITH C1 EACH PO (02:26)
[2017-08-23] MEDS ORDERED: TRAZODONE HCL50 MG PO (02:26)
[2017-08-23] MEDS ORDERED: MECLIZINE HCL12.5 MG PO (02:26)
[2017-08-23] MEDS ORDERED: ASPIRIN81 MG PO (02:26)
[2017-08-23] MEDS ORDERED: ENTRESTO PO (02:26)
[2017-08-23] MEDS ORDERED: LEVEMIR100 UNIT/1 SQ (02:26)
[2017-08-23] MEDS ORDERED: PANTOPRAZOLE 40 MG 10ML VIAL IV STA (02:36)
[2017-08-23] MEDS ORDERED: SODIUM CHLORIDE 0.9% 250ML 250 ML IV ONE (02:45)
[2017-08-23] MEDS ORDERED: ONDANSETRON HCL 4 MG ORAL DISINTEGRATING TAB PO ONE (02:45)
[2017-08-23] MEDS ORDERED: SODIUM CHLORIDE 0.9% 1000ML 1,000 ML IV ONE (02:45)
[2017-08-23 02:46] LABS: BASOPHILS % 0.4 % (0.0-1.0); EOSINOPHILS # (AUTO) 0.1 (0.0-0.4); EOSINOPHILS % 1.3 % (0.0-6.0); HEMATOCRIT 42.4 % (34.2-44.1); LYMPHOCYTES # (AUTO) 1.1 (1.0-3.2); LYMPHOCYTES % 16.2 % (18.0-39.1); MEAN CORPUSCULAR HEMOGLOBIN 23.8 pg (28-32); MONOCYTES # (AUTO) 0.5 (0.2-0.8); MONOCYTES % 6.7 % (4.4-11.3); NEUTROPHILS # (AUTO) 5.1 (2.1-6.9); NEUTROPHILS % 74.8 % (38.7-80.0); PLATELET COUNT 246 x10e3/uL (140-360); RED BLOOD COUNT 5.89 x10e6/uL (3.6-5.1); RED CELL DISTRIBUTION WIDTH 21.2 % (11.7-14.4)
[2017-08-23] MEDS ORDERED: SODIUM CHLORIDE 0.9% 1000ML 1,000 ML ONE (02:46)
[2017-08-23 02:48] LABS: CLARITY,URINE CLEAR (CLEAR); COLOR,URINE YELLOW (YELLOW); KETONES,URINE NEGATIVE (NEGATIVE); LEUKOCYTE ESTERASE ,URINE NEGATIVE (NEGATIVE); NITRITE,URINE NEGATIVE (NEGATIVE); PROTEIN,URINE DIPSTICK NEGATIVE (NEGATIVE); URINE UROBILINOGEN 0.2 mg/dL (0.2 - 1)
[2017-08-23 02:49] LABS: BILIRUBIN,URINE NEGATIVE (NEGATIVE)
[2017-08-23 02:50] LABS: INR 1.18; PROTHROMBIN TIME 14.1 seconds (11.9-14.5)
[2017-08-23 02:51] LABS: PARTIAL THROMBOPLASTIN TIME 39.4 seconds (23.8-35.5)
[2017-08-23 03:09] LABS: ALBUMIN 4.3 g/dL (3.5-5.0); ALBUMIN/GLOBULIN RATIO 0.8 (0.8-2.0); ANION GAP 25.3 mmol/L (8-16); CALCIUM 9.1 mg/dL (8.4-10.2); CREATININE, SERUM 3.28 mg/dL (0.57-1.11); MAGNESIUM 2.1 MG/DL (1.3-2.1); POTASSIUM 5.3 mmol/L (3.5-5.1)
[2017-08-23 03:12] LABS: EPITHELIAL CELLS,URINE RARE /LPF; RBC,URINE 0-5 /HPF (0-5); WBC,URINE (MAN) 0-5 /HPF (0-5)
[2017-08-23 03:38] LABS: CREATINE KINASE MB 5.7 ng/mL (0-5.0); THYROID STIMULATING HORMONE 5.406 uIU/mL (0.350-4.940)
[2017-08-23] MEDS ORDERED: SOD POLYSTYRENE SULFONATE SUSP 15 GM/60 ML BTL PO ONE (04:45)
[2017-08-23] MEDS ORDERED: SODIUM CHLORIDE 0.9% 500ML 500 ML IV ONE (04:45)
--- NOTE | 2017-08-23 04:48 | Diagnostic Imaging Report ---
ABDOMEN COMP INCL UPR or DECUB, CHEST 2 VIEWS Clinical history: \S\SOB, N/V/D H/O CHF PACER/AICD \S\\S\SOB H/O CHF PACER/AICD \[id number] \S\0345 Technique: AP views of the abdomen, 2 views of the chest Comparison: Chest radiographs 06/30/2017 Findings: Atherosclerotic calcifications. Abdomen: Nonobstructive bowel gas pattern. Moderate stool is present. No free air. Chest: Left chest wall 3-lead ICD. Coronary sinus lead is new. Vascular stent projects over the left superior mediastinum. Stable cardiac silhouette status post sternotomy. There is central vascular congestion. No effusion or pneumothorax. Impression: 1. Central vascular congestion without overt edema. 2. Nonobstructed bowel gas pattern with moderate stool burden. Signed by: Dr Donna Sanchez MD on 08/23/2017 4:44 AM
[2017-08-23 05:13] LABS: ABG HCO3 19 mmol/L (23-28); ABG PCO2 31 mmHg (41-51); ABG PO2 98 mmHg (80-105)
[2017-08-23] MEDS ORDERED: ONDANSETRON HCL 4 MG ORAL DISINTEGRATING TAB PO PRN (05:15)
[2017-08-23] MEDS ORDERED: DEXTROSE 50% SYRINGE 50 ML IV PRN (05:15)
[2017-08-23] MEDS: INSULIN REGULAR, HUMAN 100 UNIT/1 ML 3ML VIAL SQ SCH ×4 (07:30→20:28)
[2017-08-23 08:16] VITALS: BP 131/54
[2017-08-23] MEDS: PANTOPRAZOLE 40 MG 10ML VIAL IV SCH (09:27)
[2017-08-23 10:34] VITALS: BP 131/54
[2017-08-23 12:00] VITALS: BP 114/53
--- NOTE | 2017-08-23 13:01 | Consultation ---
DATE OF CONSULTATION: August 23, 2017 REQUESTING PHYSICIAN: Dr. Valenzuela REASON FOR CONSULTATION: Acute kidney injury. Thank you for allowing us to participate in Ms. Nunez's care. This 81-year-old female with a history of chronic kidney disease, stage 4. She has been in and out of the hospital. More recently, chemistries have shown creatinine of 2.6 To 2.8 mg/percent. She came in feeling poorly and having some diarrhea, some dyspnea, nausea, and vomiting. No fevers or chills. She had minimal swelling in the leg. Not unusual from before. Additionally, she had also been on metolazone and on diuretics in spite of which the chest x-ray is still showing some fluid overload. Getting evaluation in the ER noted potassium was somewhat high at 5.3. Serum CO2 of 17, creatinine of 3.28, BUN of 141, which in combination with her nausea and vomiting and feeling poorly suggests anemia. The hemoglobin was actually on the high side at 14. PAST HISTORY: CKD, 4, history of intermittent fluid overload, congestive heart failure with acute exacerbation intermittently, coronary artery bypass, history of AICD placement, type 2 diabetes. HOME MEDICATIONS 1. Tylenol with codeine. 2. Aspirin 81 mg a day. 3. Lasix 40 mg b.i.d. 4. Metolazone 2.5 mg daily. 5. Meclizine p.r.n. 6. Minocycline, recent course. 7. Entresto 24 mg b.i.d. 8. Lovenox which she is still taking it. FAMILY HISTORY: Diabetes. SOCIAL HISTORY: . Does not use alcohol or smoke. REVIEW OF SYSTEMS CONSTITUTIONAL: No fever or chills, but feels poorly. VASCULAR: Some swelling. GI: Nausea and vomiting and intermittent diarrhea. CARDIAC: Some dyspnea and respiratory dyspnea. NEURO: Feels weak. PHYSICAL EXAMINATION GENERAL: Laying in bed and appears chronically ill. VITALS: Temperature 97.6, pulse 66, blood pressure 124/55. HEENT: Facial puffiness. NECK: JVD at 7 cm. CHEST: Faint crackles at the bases. CARDIAC: Normal heart tones. Systolic murmur. ABDOMEN: Benign. EXTREMITIES: Trace edema. NEURO: Appears to be alert and appropriate. Speech is normal. Hemoglobin 14, white count 6.8, and platelets 246,000. UA shows 1+ glucose, trace blood, protein negative on the dip stick. Sodium 121, potassium 5.3, serum CO2 17, creatinine 3.28, BUN 141. CK-MB is 5.7. TSH 5.4. ASSESSMENT 1. Chronic kidney disease, 4 with acute kidney injury versus progression towards end-stage renal disease, but the fact that she has had intermittent trouble with fluid overload may indicate this. 2. Consider potentially acute kidney injury from the cardiorenal syndrome with poor perfusion. 3. Mild hyperkalemia: Presumably, it is acute kidney injury and decreased flow. 4. Metabolic acidosis from above. 5. Overall volume overloaded. 6. Appears to be uremic with significant abnormalities on the blood chemistries. PLAN: I had a discussion with her. I think the benefit favors initiation of dialysis in the past. She was resistant. At this point, she is still considered acute kidney injury other than ESRD, which is a more permanent entity. Will request interventional radiology to place a [facility] catheter. Initiate dialysis. Please see the orders for details. This should additionally help both the hyperkalemia and the metabolic acidosis. I expect the low sodium to correct with time as we take control of her fluid overload. Keep salt and water restricted as total body sodium is still increased. Job#: [id number] GEOFFREY
--- NOTE | 2017-08-23 14:20 | Consultation ---
DATE OF CONSULTATION: August 23, 2017 CARDIOLOGY CONSULTATION REASON FOR CONSULTATION: Evaluation and management of cardiac condition. HISTORY OF PRESENT ILLNESS: Ms. Nunez is a 81-year-old woman with hypertension, diabetes mellitus, type 2, CKD, CAD, status post bypass and stents, history of chronic systolic heart failure, status post recent AICD, paroxysmal atrial fibrillation presenting with worsening vomiting, nausea and symptoms concerning for uremia, metabolic acidosis and hyperkalemia, and hyponatremia for which she is being admitted in the setting of worsening renal function. Renal has been consulted. We have been asked to see Ms. Nunez while she is admitted. She denies any active chest pain. States she has mild shortness of breath. REVIEW OF SYSTEMS: A 12-system reviewed, otherwise negative except for as noted above. ALLERGIES: CODEINE. PAST MEDICAL HISTORY: As per HPI. SOCIAL HISTORY: Negative for smoking, alcohol or drugs. FAMILY HISTORY: Noncontributory. PHYSICAL EXAMINATION VITALS: Temperature 97.6, heart rate 66, respiratory rate 18, blood pressure 124/55, and O2 sat 99% on room air. GENERAL: No acute distress. Alert. NECK: JVD elevated to lower half of neck. Head of bed elevation. CHEST: Decreased breath sounds in bilateral bases. CARDIOVASCULAR: Regular rate and rhythm. Normal S1 and S2. ABDOMEN: Soft. EXTREMITIES: No edema. Warm distal extremities. MEDICATIONS: Have been reviewed. LABS: White blood cells 6.8, hemoglobin 14 and platelets 246,000. INR 1.1. Sodium 121, potassium 5.3, chloride 84, bicarbonate 17, BUN 141, creatinine 3.2, glucose 253. Calcium 9.1. Magnesium 2.1. Total bilirubin 0.9, AST 75, ALT 48. CK 127, CK-MB 5.7 and troponin I 0.064 and then 0.051. BNP is 977. Total protein 9.5, albumin 4.3. TSH 5.4. Lipase 36. Chest x-ray with central vascular congestion. Nonobstructive bowel gas pattern with moderate stool burden. EKG shows AV sequential paced rhythm. ASSESSMENT 1. [id number] severe systolic heart failure: Status post implantable cardioverter defibrillator. 2. Acute kidney injury on chronic kidney disease versus worsening chronic kidney disease. 3. Diabetes mellitus. 4. Hypertension. 5. Paroxysmal atrial fibrillation. 6. Coronary artery disease: History of stent and bypass. 7. Uremia. 8. Metabolic acidosis. 9. Hyperkalemia. RECOMMENDATIONS: Mild volume overload. The patient undergoing consideration for dialysis. Defer this conversation to nephrology. Resume home cardiovascular medications. From a cardiac standpoint, mainly amiodarone, aspirin, atorvastatin, and furosemide, and metolazone. Hold Entresto in light of worsening renal function. Will follow closely. Thank you for the opportunity to participate in the care of Ms. Nunez. Job#: [id number] GEOFFREY
[2017-08-23 16:00] VITALS: BP 128/57
[2017-08-23] MEDS ORDERED: LIDOCAINE HCL 1% LOCAL INJ 20 ML VIAL ONE (16:05)
[2017-08-23] MEDS ORDERED: FUROSEMIDE 40 MG TAB PO SCH (17:00)
[2017-08-23] MEDS: AMIODARONE HCL 200 MG TAB PO SCH (17:38)
--- NOTE | 2017-08-23 18:26 | History and Physical ---
CHIEF COMPLAINT: End-stage renal failure, elevated potassium level, low sodium level, metabolic acidosis secondary to uremia. HISTORY OF PRESENT ILLNESS: Patient is a 81-year-old female with advanced congestive heart failure, ejection fraction less than 20-30%, came in with uremia. The patient has type 2 diabetes, coronary artery disease, AICD, and atrial fibrillation, came in with uremia, metabolic acidosis, increasing potassium level at 5.3. Patient is with BUN and creatinine of 141 and 3.3. Patient will need dialysis. PAST MEDICAL HISTORY: Multiple, please review previously. Systolic congestive heart failure, AICD, atrial fibrillation, coronary artery disease, end-stage renal disease, recurrent urinary tract infection, recurrent congestive heart failure, history of bypass surgery and coronary stent. SOCIAL HISTORY: Patient does not smoke or use alcohol. No recreational drugs. ALLERGIES: TO CODEINE. HOME MEDICATIONS: List reviewed. REVIEW OF SYSTEMS: Very weak and short of breath. PHYSICAL EXAMINATION VITAL SIGNS: Temperature is 98, blood pressure 114/53, pulse rate 60, respirations 22. GENERAL: Patient seems weak, but awake and alert, no focal deficit. HEENT: Normocephalic, atraumatic. Anicteric. NECK: Supple grossly. PULMONARY: Diminished breath sounds bilaterally with rales. CARDIOVASCULAR: Regular rate and rhythm. ABDOMEN: Soft. EXTREMITIES: Positive edema. NEUROLOGIC: No focal deficit. LABORATORY DATA: Sodium is 121, potassium 5.3, chloride 84, bicarb 17, BUN 141, creatinine 3.3, and glucose 279. WBC 6.9, hemoglobin 14, hematocrit 42, platelets 246. IMPRESSION 1. End-stage renal disease, requiring dialysis. 2. Uremia. 3. Hyponatremia and hyperkalemia. 4. Baseline advanced coronary artery disease, previous bypass surgery and stent, automatic implantable cardioverter-defibrillator, baseline congestive heart failure, systolic dysfunction. PLAN: Dialysis needed. Continue with insulin sliding scale coverage. Home medication adjustment. Will discontinue diuretic. Job#: [id number] LINDYU
[2017-08-23] MEDS ORDERED: HEPARIN SOD (PORCINE) 1000 UNIT/ML SDV IV PRN (19:00)
[2017-08-23] MEDS ORDERED: MANNITOL 25% 12.5GM/50 ML VIAL IV PRN (19:00)
[2017-08-23] MEDS ORDERED: SODIUM CHLORIDE 0.9% 1000ML 2,000 ML ONE (19:21)
[2017-08-23 20:00] VITALS: BP 119/54
[2017-08-23] MEDS: ATORVASTATIN 10 MG TAB PO SCH (22:41)
[2017-08-24 00:29] VITALS: BP 92/60
[2017-08-24 04:00] VITALS: BP 101/55
[2017-08-24 08:00] VITALS: BP 122/60
[2017-08-24] MEDS: PANTOPRAZOLE 40 MG 10ML VIAL IV SCH (08:20)
[2017-08-24] MEDS: AMIODARONE HCL 200 MG TAB PO SCH ×2 (08:20→16:52)
[2017-08-24] MEDS: ASPIRIN 81 MG CHEW TAB PO SCH (08:20)
[2017-08-24] MEDS: INSULIN REGULAR, HUMAN 100 UNIT/1 ML 3ML VIAL SQ SCH ×4 (08:30→21:30)
[2017-08-24 08:41] LABS: BASOPHILS % 0.4 % (0.0-1.0); EOSINOPHILS # (AUTO) 0.1 (0.0-0.4); EOSINOPHILS % 1.1 % (0.0-6.0); HEMATOCRIT 35.7 % (34.2-44.1); HEMOGLOBIN 11.5 g/dL (12.0-16.0); LYMPHOCYTES # (AUTO) 0.5 (1.0-3.2); MEAN CORPUSCULAR HEMOGLOBIN 23.6 pg (28-32); MEAN CORPUSCULAR HGB CONC 32.2 g/dL (31-35); MEAN CORPUSCULAR VOLUME 73.2 fL (81-99); MONOCYTES # (AUTO) 0.5 (0.2-0.8); MONOCYTES % 7.4 % (4.4-11.3); NEUTROPHILS # (AUTO) 6.1 (2.1-6.9); NEUTROPHILS % 83.7 % (38.7-80.0); PLATELET COUNT 195 x10e3/uL (140-360); RED BLOOD COUNT 4.88 x10e6/uL (3.6-5.1)
[2017-08-24] MEDS ORDERED: METOLAZONE 5 MG TAB PO SCH (09:00)
[2017-08-24 09:06] LABS: ALBUMIN 3.1 g/dL (3.5-5.0); ALBUMIN/GLOBULIN RATIO 0.9 (0.8-2.0); ANION GAP 15.5 mmol/L (8-16); CALCIUM 8.5 mg/dL (8.4-10.2); CHOL/HDL RATIO 2.6 (3.0-3.6); CREATININE, SERUM 2.49 mg/dL (0.57-1.11); POTASSIUM 4.5 mmol/L (3.5-5.1)
[2017-08-24 11:22] LABS: BAND NEUTROPHILS % (MANUAL) 3 %; EOSINOPHILS % (MANUAL) 1 % (0-7); LYMPHOCYTES % (MANUAL) 7 % (19-48); MONOCYTES % (MANUAL) 5 % (3.4-9.0); NEUTROPHILS % (MANUAL) 84 % (40-74)
[2017-08-24 11:23] LABS: PLATELET ESTIMATE ADEQUATE; PLATELET MORPHOLOGY COMMENT NORMAL; RBC MORPHOLOGY COMMENT NORMAL
[2017-08-24 12:00] VITALS: BP 125/62
--- NOTE | 2017-08-24 14:44 | Progress Note ---
DATE: August 24, 2017 CARDIOLOGY PROGRESS NOTE SUBJECTIVE: Remains with nausea. Somewhat better. No chest pain. Shortness of breath, mild. OBJECTIVE VITALS: Temperature 98.7, heart rate 76, respiratory rate 18, blood pressure 122/60, O2 sat 98% room air. GENERAL: No acute distress. Alert. NECK: No JVD. CHEST: Clear to auscultation. CARDIOVASCULAR: Regular rate and rhythm. Normal S1 and S2. Systolic ejection murmur of 1/6. ABDOMEN: Soft. EXTREMITIES: Trace edema. CARDIOVASCULAR MEDICATIONS 1. Aspirin 81 mg daily. 2. Amiodarone 200 mg b.i.d. 3. Atorvastatin 10 mg at bedtime. White blood cells 7.2, hemoglobin 11.5 and platelets 195,000. Sodium 132, potassium 4.5, chloride 97, bicarbonate 24, BUN 86, creatinine 2.49, glucose 309. AST is 121, ALT 59, alk phos 93. Troponin I 0.038. Total protein 6.7, albumin 3.1. LDL 50, HDL 40, total cholesterol 105, triglycerides 77. Telemetry paced rhythm. ASSESSMENT 1. Agxse-ku-[id number] severe systolic heart failure: Status post automatic implanted cardioverter defibrillator, recent operate. 2. Acute kidney injury on chronic kidney disease versus worsening chronic kidney disease. 3. Diabetes mellitus. 4. Hypertension. 5. Uremia. 6. Paroxysmal atrial fibrillation. 7. Coronary artery disease: Status post prior percutaneous coronary intervention and aortocoronary bypass. 8. Metabolic acidosis. 9. Hyperkalemia. RECOMMENDATIONS: Undergoing management per nephrology. Continue current cardiovascular medications of amiodarone, aspirin and atorvastatin. Defer diuretics to primary service. Entresto has been discontinued in light of renal function issues. Job#: [id number] [place]
[2017-08-24 16:00] VITALS: BP 117/56
[2017-08-24] MEDS ORDERED: SODIUM CHLORIDE 0.9% 1000ML 1,000 ML ONE (18:44)
[2017-08-24 20:00] VITALS: BP 98/47
[2017-08-24] MEDS: METOPROLOL TARTRATE 25 MG TAB PO SCH (20:57)
[2017-08-24] MEDS: ATORVASTATIN 10 MG TAB PO SCH (21:45)
[2017-08-25] VITALS (7 sets, daily range): BP systolic 103–149; BP diastolic 45–64
--- NOTE | 2017-08-25 07:07 | Diagnostic Imaging Report ---
Date and Time: 08/23/2017 Procedure: Image guided placement of a right internal jugular temporary hemodialysis catheter contact lens lathe operator: Dr. Albright Pre-operative diagnosis: Acute kidney injury Post-operative diagnosis: Acute kidney injury Conscious Sedation: None Additional Medications: Lidocaine 1% for local anesthesia Fluoroscopy time: 0.4 minutes Frontal Air Kerma: 8.98 mGy Contrast used: None Estimated blood loss: Minimal Specimens: None Implants: 13 Vincentian, 15 cm triple-lumen hi flow central venous catheter Blood products administered: None Condition at completion of procedure: Stable Disposition: Returned to floor DISCUSSION: Informed consent was obtained and documented in the medical record. Patient was placed in the supine position on the fluoroscopic table. Preliminary sonographic evaluation confirmed patency of the right internal jugular vein, evidenced by compressibility. The right cervical region was prepped and draped in the standard sterile fashion. 1% lidocaine was infiltrated into the skin and subcutaneous tissues for local anesthesia. Then under continuous sonographic guidance, an 18-gauge singlewall needle was used to access the right internal jugular vein. A permanent sonographic image was stored in the medical record. A 0.0 3 5-in. J-wire was advanced centrally and ultimately into the inferior vena cava under fluoroscopic guidance. The needle was removed and the tract was dilated. Then, a 13 Vincentian, 15 cm triple-lumen hi flow central venous catheter was advanced over the wire to a depth of 14 cm. The wire was removed and the catheter tip was positioned in the upper right atrium. Each lumen showed adequate bidirectional flow and was flushed with sterile saline. The catheter was secured to the skin with monofilament nylon suture and a sterile dressing was applied. The patient tolerated the procedure well without immediate complication. FINDINGS: Patent right internal jugular vein. IMPRESSION: Successful placement of a 13 Vincentian, 15 cm triple-lumen hi flow central venous catheter by a right internal jugular approach. Signed by: Dr. Julio Cesar Albright M.D. on 08/25/2017 7:03 AM
[2017-08-25] MEDS: INSULIN REGULAR, HUMAN 100 UNIT/1 ML 3ML VIAL SQ SCH ×4 (07:30→20:03)
[2017-08-25] MEDS: METOPROLOL TARTRATE 25 MG TAB PO SCH ×2 (09:00→20:02)
[2017-08-25] MEDS: ASPIRIN 81 MG CHEW TAB PO SCH (10:03)
[2017-08-25] MEDS: PANTOPRAZOLE 40 MG 10ML VIAL IV SCH (10:03)
[2017-08-25] MEDS: AMIODARONE HCL 200 MG TAB PO SCH ×2 (10:03→18:24)
--- NOTE | 2017-08-25 12:46 | Progress Note ---
DATE: August 25, 2017 CARDIOLOGY PROGRESS NOTE SUBJECTIVE: Patient denies chest pain or shortness of breath. She reports she feels better. OBJECTIVE VITALS: Temperature 98 degrees, pulse 67, respiratory rate 18, blood pressure 109/57, oxygen saturation 95% on room air. GENERAL: Awake, alert, in no acute distress. LUNGS: Clear to auscultation bilaterally. No wheezes or crackles. CARDIOVASCULAR: Normal rate, regular rhythm. Normal S1 and S2. Systolic murmur 1/6. ABDOMEN: Soft. EXTREMITIES: Trace edema. CARDIAC MEDICATIONS 1. Aspirin 81 mg p.o. daily. 2. Amiodarone 200 mg p.o. b.i.d. 3. Atorvastatin 10 mg p.o. nightly. 4. Metoprolol tartrate 12.5 mg p.o. q.12 h. LABS: None today. TELEMETRY: A sensed, V paced. ASSESSMENT 1. Oihwq-ur-cojmeiq severe systolic heart failure, status post automatic implanted cardioverter defibrillator, recent. 2. Acute kidney injury on chronic kidney disease, now initiated on hemodialysis. 3. Diabetes mellitus. 4. Hypertension. 5. Paroxysmal atrial fibrillation, currently sinus rhythm. 6. Coronary artery disease, status post percutaneous coronary intervention and aortocoronary bypass. RECOMMENDATIONS: Hemodialysis has been started per nephrology. Continue current cardiac medications. Decision regarding diuretics per nephrology given initiation of hemodialysis. Given her dialysis needs, the Entresto has been discontinued. Patient is declared end-stage renal disease and needs tunneled dialysis catheter. This will need to be placed under fluoroscopy given her very recent device placement. Patient will need device interrogation prior to discharge to confirm normal device function given dialysis catheter placement. Thank you for this consult. We will continue to follow. Job#: [id number]
[2017-08-25] MEDS ORDERED: SODIUM CHLORIDE 0.9% 1000ML 2,000 ML ONE (13:48)
[2017-08-25 15:13] LABS: BASOPHILS % 0.3 % (0.0-1.0); EOSINOPHILS # (AUTO) 0.1 (0.0-0.4); EOSINOPHILS % 1.6 % (0.0-6.0); HEMATOCRIT 34.4 % (34.2-44.1); HEMOGLOBIN 10.8 g/dL (12.0-16.0); LYMPHOCYTES # (AUTO) 1.2 (1.0-3.2); LYMPHOCYTES % 18.9 % (18.0-39.1); MEAN CORPUSCULAR HEMOGLOBIN 23.6 pg (28-32); MEAN CORPUSCULAR HGB CONC 31.4 g/dL (31-35); MEAN CORPUSCULAR VOLUME 75.3 fL (81-99); MONOCYTES # (AUTO) 0.7 (0.2-0.8); NEUTROPHILS # (AUTO) 4.2 (2.1-6.9); NEUTROPHILS % 67.9 % (38.7-80.0); PLATELET COUNT 137 x10e3/uL (140-360); RED BLOOD COUNT 4.57 x10e6/uL (3.6-5.1); RED CELL DISTRIBUTION WIDTH 21.2 % (11.7-14.4)
[2017-08-25 19:16] LABS: ALBUMIN 3.8 g/dL (3.5-5.0); ALBUMIN/GLOBULIN RATIO 0.8 (0.8-2.0); ANION GAP 14.9 mmol/L (8-16); CALCIUM 9.8 mg/dL (8.4-10.2); CREATININE, SERUM 1.22 mg/dL (0.57-1.11); POTASSIUM 3.9 mmol/L (3.5-5.1)
[2017-08-25] MEDS: ATORVASTATIN 10 MG TAB PO SCH (20:02)
[2017-08-26] VITALS (11 sets, daily range): BP systolic 119–166; BP diastolic 58–70
[2017-08-26] MEDS: INSULIN REGULAR, HUMAN 100 UNIT/1 ML 3ML VIAL SQ SCH ×4 (07:30→20:39)
[2017-08-26] MEDS ORDERED: LIDOCAINE HCL 2% LOCAL 20 ML VIAL ONE ×2 (09:33→14:38)
[2017-08-26] MEDS ORDERED: SODIUM CHLORIDE 0.9% 500ML 500 ML ONE (09:33)
[2017-08-26] MEDS ORDERED: MIDAZOLAM HCL 2 MG/2 ML VIAL ONE (09:36)
[2017-08-26] MEDS ORDERED: HEPARIN SOD (PORCINE) 1000 UNIT/ML 30ML ONE (09:37)
[2017-08-26] MEDS ORDERED: FENTANYL CITRATE/PF 100MCG/2 ML INJ ONE (09:37)
[2017-08-26] MEDS: ASPIRIN 81 MG CHEW TAB PO SCH (12:32)
[2017-08-26] MEDS: PANTOPRAZOLE 40 MG 10ML VIAL IV SCH (12:32)
[2017-08-26] MEDS: AMIODARONE HCL 200 MG TAB PO SCH ×2 (12:32→17:00)
[2017-08-26] MEDS: METOPROLOL TARTRATE 25 MG TAB PO SCH ×2 (12:33→20:38)
--- NOTE | 2017-08-26 13:10 | Progress Note ---
DATE: August 26, 2017 CARDIOLOGY PROGRESS NOTE SUBJECTIVE: Patient denies chest pain or shortness of breath. She underwent tunneled dialysis catheter placement this morning. OBJECTIVE VITAL SIGNS: Temperature 97.1 degrees, pulse 66, respiratory rate 16, blood pressure 166/70, oxygen saturation 98% on room air. GENERAL: Awake, alert, in no acute distress. LUNGS: Clear to auscultation bilaterally. No wheezes or crackles. CARDIOVASCULAR: Normal rate, regular rhythm. Normal S1 and S2. Systolic murmur 1 out of 16. ABDOMEN: Soft. EXTREMITIES: Trace edema. CARDIAC MEDICATIONS 1. Metoprolol tartrate 12.5 mg p.o. q.12 h. 2. Aspirin 81 mg p.o. daily. 3. Amiodarone 200 mg p.o. b.i.d. 4. Atorvastatin 10 mg p.o. nightly. LABS: None today. TELEMETRY: V-paced. IMPRESSION 1. Qgisl-yk-kfcocvi severe systolic heart failure status post automatic implantable cardioverter-defibrillator recent. 2. Acute kidney injury on chronic kidney disease, now initiated on hemodialysis. 3. Diabetes mellitus. 4. Hypertension. 5. Paroxysmal atrial fibrillation, currently sinus rhythm. 6. Coronary artery disease status post percutaneous coronary intervention and coronary artery bypass graft. RECOMMENDATIONS: Hemodialysis has been initiated per Nephrology. Continue current cardiac medications. Volume management per Nephrology given hemodialysis initiation. Will have device interrogated given recent placement to confirm leads have not dislodged. Continue current cardiac medications otherwise. No Entresto at this time due to her end-stage renal disease. She will need to be transitioned to metoprolol succinate upon discharge. Thank you for this consult. We will continue to follow. Job#: [id number] EV
[2017-08-26] MEDS ORDERED: GELATIN SPONGE 12-7MM ONE (15:14)
[2017-08-26] MEDS: ATORVASTATIN 10 MG TAB PO SCH (20:37)
[2017-08-27] VITALS (8 sets, daily range): BP systolic 98–156; BP diastolic 57–79
[2017-08-27] MEDS: PANTOPRAZOLE 40 MG 10ML VIAL IV SCH (08:09)
[2017-08-27] MEDS: ASPIRIN 81 MG CHEW TAB PO SCH (08:09)
[2017-08-27] MEDS: METOPROLOL TARTRATE 25 MG TAB PO SCH ×2 (08:09→20:24)
[2017-08-27] MEDS: AMIODARONE HCL 200 MG TAB PO SCH ×2 (08:09→16:21)
[2017-08-27] MEDS: INSULIN REGULAR, HUMAN 100 UNIT/1 ML 3ML VIAL SQ SCH ×4 (08:09→20:27)
[2017-08-27 12:07] LABS: ANION GAP 14.9 mmol/L (8-16); CALCIUM 9.2 mg/dL (8.4-10.2); CREATININE, SERUM 2.14 mg/dL (0.57-1.11); POTASSIUM 4.9 mmol/L (3.5-5.1)
[2017-08-27] MEDS ORDERED: ALBUMIN 5% 250ML IV PRN (14:30)
[2017-08-27] MEDS ORDERED: ALBUMIN 25% 12.5GM 50 ML IV PRN (14:45)
[2017-08-27] MEDS ORDERED: SODIUM CHLORIDE 0.9% 1000ML 1,000 ML ONE (16:17)
[2017-08-27] MEDS: ATORVASTATIN 10 MG TAB PO SCH (20:24)
--- NOTE | 2017-08-27 21:36 | Progress Note ---
DATE: August 27, 2017 CARDIOLOGY PROGRESS NOTE SUBJECTIVE: The patient denies chest pain or shortness of breath. OBJECTIVE VITAL SIGNS: Temperature 97.7 degrees, pulse 82, respiratory rate 20, blood pressure 98/57, oxygen saturation 100% on room air. GENERAL: Awake, alert, in no acute distress. LUNGS: Clear to auscultation bilaterally. No wheezes or crackles. CARDIOVASCULAR: Normal rate, regular rhythm. Systolic murmur 1/6. Normal S1, S2. ABDOMEN: Soft. EXTREMITIES: Trace edema. CARDIAC MEDICATIONS 1. Amiodarone 200 mg p.o. b.i.d. 2. Metoprolol tartrate 12.5 mg p.o. q.12 h. 3. Aspirin 81 mg p.o. daily. 4. Atorvastatin 10 mg p.o. nightly. LABS: Sodium 135, potassium 4.9, chloride 102, CO2 23, BUN 50, creatinine 2.14. TELEMETRY: V-paced. IMPRESSION 1. Mffwk-cw-hgtfcdc severe systolic heart failure, status post automatic implantable cardioverter-defibrillator. 2. Acute kidney injury on chronic kidney disease, now initiated on hemodialysis. 3. Diabetes mellitus. 4. Hypertension. 5. Paroxysmal atrial fibrillation, currently in sinus rhythm. 6. Coronary artery disease, status post percutaneous coronary intervention and coronary artery bypass graft. RECOMMENDATIONS: Hemodialysis has been initiated. Volume management per nephrology given the patient is now in end-stage renal disease. Continue current cardiac medications. Otherwise, she will need to be transitioned to metoprolol succinate upon discharge. Thank you for this consult. We will continue to follow. Job#: [id number] LUIS
[2017-08-28] VITALS (8 sets, daily range): BP systolic 110–152; BP diastolic 55–96
[2017-08-28] MEDS: INSULIN REGULAR, HUMAN 100 UNIT/1 ML 3ML VIAL SQ SCH ×4 (08:00→21:10)
[2017-08-28] MEDS: PANTOPRAZOLE 40 MG 10ML VIAL IV SCH (09:14)
[2017-08-28] MEDS: METOPROLOL TARTRATE 25 MG TAB PO SCH ×2 (09:14→21:31)
[2017-08-28] MEDS: ASPIRIN 81 MG CHEW TAB PO SCH (09:14)
[2017-08-28] MEDS: AMIODARONE HCL 200 MG TAB PO SCH ×2 (09:14→16:31)
[2017-08-28] MEDS: ATORVASTATIN 10 MG TAB PO SCH (21:31)
[2017-08-29] VITALS (7 sets, daily range): BP systolic 99–153; BP diastolic 51–73
[2017-08-29] MEDS: INSULIN REGULAR, HUMAN 100 UNIT/1 ML 3ML VIAL SQ SCH ×4 (08:20→20:10)
[2017-08-29] MEDS: PANTOPRAZOLE 40 MG 10ML VIAL IV SCH (08:20)
[2017-08-29] MEDS: AMIODARONE HCL 200 MG TAB PO SCH ×2 (08:20→16:56)
[2017-08-29] MEDS: ASPIRIN 81 MG CHEW TAB PO SCH (08:20)
[2017-08-29] MEDS: METOPROLOL TARTRATE 25 MG TAB PO SCH ×2 (09:00→20:10)
--- NOTE | 2017-08-29 11:47 | Progress Note ---
DATE: August 28, 2017 CARDIOLOGY PROGRESS NOTE SUBJECTIVE: The patient denies chest pain or shortness of breath. She would like go home, but she is waiting outpatient dialysis chair. OBJECTIVE VITAL SIGNS: Temperature 98.8 degrees, pulse 61, respiratory rate 18, blood pressure 113/59, oxygen saturation 100% on room air. GENERAL: Awake, alert, in no acute distress. LUNGS: Clear to auscultation bilaterally. No wheezes or crackles. CARDIOVASCULAR: Normal rate, regular rhythm. Systolic murmur 1/6. Normal S1, S2. ABDOMEN: Soft. EXTREMITIES: Trace edema. CARDIAC MEDICATIONS 1. Amiodarone 200 mg p.o. b.i.d. 2. Metoprolol tartrate 12.5 mg p.o. q.12 h. 3. Aspirin 81 mg p.o. daily. 4. Atorvastatin 10 mg p.o. nightly. LABS: None today. TELEMETRY: V-paced. IMPRESSION 1. Ryfuc-kn-cibolhq severe systolic heart failure, status post automatic implantable cardioverter-defibrillator. 2. Acute kidney injury on chronic kidney disease, now initiated on hemodialysis. 3. Diabetes mellitus. 4. Hypertension. 5. Paroxysmal atrial fibrillation, currently in sinus rhythm. 6. Coronary artery disease, status post percutaneous coronary intervention and coronary artery bypass graft. RECOMMENDATIONS: Volume management per nephrology given the patient is now end-stage renal disease with initiation of hemodialysis. Continue current cardiac medications. The patient needs to be transitioned to metoprolol succinate upon discharge. Continue current cardiac medications, otherwise. Thank you for this consult. We will continue to follow. Job#: [id number]
--- NOTE | 2017-08-29 12:36 | Diagnostic Imaging Report ---
Procedure: Tunneled hemodialysis catheter placement. Medications: Versed 1 mg intravenous, Fentanyl 50 mcg intravenous. The patient's vital signs, including pulse oximetry, were continuously monitored by the interventional radiology nurse. Fluoroscopy time: 0.6 minutes. Dose area product: 34.5 cGycm2 Estimated blood loss: Minimal. Complications: No immediate. Procedure in detail: Informed consent for the procedure was obtained from the patient after discussion of risks and benefits. The right neck and upper chest was prepped and draped in the standard sterile fashion after the patient was placed in the supine position on the fluoroscopic table. 1% lidocaine was administered into the skin and subcutaneous tissues of the right lower neck for local anesthesia. A 0.035 " Amplatz wire was then advanced through the temporary HD catheter into the vena cava under fluoroscopic guidance. Attention was then turned to the right upper chest. A suitable catheter exit site was determined, approximately 3 fingerbreadths inferior to the clavicle. The skin was marked. 1% lidocaine was used to anesthetize a subcutaneous tract extending from the planned catheter exit site to the venotomy at the right lower neck. A stab incision was made on the right upper chest. Subsequently, the catheter was tunneled from the exit site of the right upper chest to the venotomy at the right lower neck. The retention cuff of the catheter was advanced well into the subcutaneous tunnel. Finally, a 16.5-Yoruba peel-away sheath was advanced over the wire under fluoroscopic guidance. The wire and inner dilator of the sheath were removed and the 16 Fr Bard split tip HD catheter was advanced through the peel-away sheath, which was then broken and removed. The catheter tips were positioned in the upper right atrium. Each catheter lumen showed good bidirectional flow. Each lumen was then packed with 1500 units of heparin. The catheter was secured at the exit site on the right upper chest with 3-0 monofilament nylon suture. A purse-string suture with 3-0 Vicryl was placed around the catheter at the entrance site. The venotomy at the right lower neck was closed with a single Vicryl suture and tissue adhesive. A sterile dressing was applied. The patient tolerated the procedure well without immediate complication. Impression: Successful placement of a tunneled dual-lumen hemodialysis catheter (16-Yoruba, 19-cm tip-cuff length) by a right internal jugular approach. Signed by: Dr. Armando Lovett DO on 08/27/2017 12:03 PM
[2017-08-29] MEDS ORDERED: ALBUMIN 25% 12.5GM 0.25 GM/ML BTL IV PRN (13:45)
[2017-08-29] MEDS ORDERED: MANNITOL 25% 12.5GM/50 ML VIAL IV PRN (13:45)
[2017-08-29] MEDS ORDERED: SODIUM CHLORIDE 0.9% 1000ML 2,000 ML IV PRN (13:45)
[2017-08-29] MEDS ORDERED: HEPARIN SOD (PORCINE) 1000 UNIT/ML SDV IV PRN (13:45)
[2017-08-29] MEDS ORDERED: SODIUM CHLORIDE 0.9% 250ML 500 ML IV PRN (13:45)
--- NOTE | 2017-08-29 16:00 | Consultation ---
DATE OF CONSULTATION: August 29, 2017 REFERRING PHYSICIANS: Dr. Pierce Iyer and Dr. Catrina Chicas. HISTORY OF PRESENT ILLNESS: The patient is a 81-year-old female with congestive heart failure, diabetes, and atrial fibrillation, who now has end-stage renal disease. She was started on hemodialysis. She needs access for long-term hemodialysis. PAST MEDICAL HISTORY: As stated above. She had previous coronary stent and previous coronary bypass. ALLERGIES: CODEINE. MEDICATIONS: Listed in the chart. FAMILY HISTORY: Noncontributory. SOCIAL HISTORY: Patient does not smoke cigarettes or drink alcohol. REVIEW OF SYSTEMS: At this time is negative. She had shortness of breath on admission. PHYSICAL EXAMINATION VITALS: Normal. GENERAL: The patient is awake, alert, in no distress. HEENT: No scleral icterus. NECK: No masses. LUNGS: Decreased breath sounds at the bases. CARDIAC: Regular rate and rhythm. ABDOMEN: Soft without tenderness. EXTREMITIES: The radial pulse is palpable bilaterally. Brachial pulse also palpable. There is adequate cephalic vein in the antecubital area for fistula. Distal veins, however, seem poor. ASSESSMENT: This 81-year-old female with end-stage renal disease needs access for hemodialysis. PLAN: Left arm AV fistula to be done next week. Procedure was explained to the patient. Thank you asking see me to see Ms. Nunez. Job#: [id number]
[2017-08-29] MEDS: ATORVASTATIN 10 MG TAB PO SCH (20:10)
--- NOTE | 2017-08-29 21:14 | Progress Note ---
DATE: August 29, 2017 CARDIOLOGY PROGRESS NOTE SUBJECTIVE: The patient denies chest pain or shortness of breath. She was seen receiving hemodialysis. OBJECTIVE VITAL SIGNS: Temperature 96.6 degrees, pulse 60, respiratory rate 18, blood pressure 115/58, oxygen saturation 100% on room air. GENERAL: Awake, alert, in no acute distress. LUNGS: Clear to auscultation bilaterally. No wheezes or crackles. CARDIOVASCULAR: Normal rate, regular rhythm. Systolic murmur 1/6. Normal S1, S2. ABDOMEN: Soft. EXTREMITIES: Trace edema. CARDIAC MEDICATIONS 1. Amiodarone 200 mg p.o. b.i.d. 2. Metoprolol tartrate 12.5 mg p.o. q.12 h. 3. Aspirin 81 mg p.o. daily. 4. Atorvastatin 10 mg p.o. nightly. LABS: None today. TELEMETRY: AV sequential pacemaker. IMPRESSION 1. Urprm-eb-rxamgjy severe systolic heart failure, status post automatic implantable cardioverter-defibrillator. 2. Acute kidney injury on chronic kidney disease, now initiated on hemodialysis. 3. Diabetes mellitus. 4. Hypertension. 5. Paroxysmal atrial fibrillation, currently in sinus rhythm. 6. Coronary artery disease, status post percutaneous coronary intervention and coronary artery bypass graft. RECOMMENDATIONS: Volume management per nephrology given the patient is now declared end-stage renal disease and initiated on hemodialysis. Continue current cardiac medications. The patient needs to be transitioned to metoprolol succinate upon discharge. Monitor the patient on telemetry while admitted. The patient's discharge is pending acceptance to an outpatient dialysis chair. Thank you for this consult. We will continue to follow. Job#: [id number]
[2017-08-30] VITALS (9 sets, daily range): BP systolic 120–160; BP diastolic 60–80
[2017-08-30] MEDS: ASPIRIN 81 MG CHEW TAB PO SCH (07:50)
[2017-08-30] MEDS: PANTOPRAZOLE 40 MG 10ML VIAL IV SCH (07:50)
[2017-08-30] MEDS: AMIODARONE HCL 200 MG TAB PO SCH ×2 (07:50→17:11)
[2017-08-30] MEDS: METOPROLOL TARTRATE 25 MG TAB PO SCH (07:50)
[2017-08-30] MEDS: INSULIN REGULAR, HUMAN 100 UNIT/1 ML 3ML VIAL SQ SCH ×4 (07:50→19:33)
[2017-08-30] MEDS: EPOETIN ALFA 10000 UNIT/ML VIAL SC SCH (11:49)
[2017-08-30] MEDS: METOPROLOL SUCCINATE 25 MG TAB XL PO SCH (12:24)
--- NOTE | 2017-08-30 12:32 | Progress Note ---
DATE: August 30, 2017 CARDIOLOGY PROGRESS NOTE SUBJECTIVE: The patient denies chest pain or shortness of breath. OBJECTIVE VITALS: Temperature 97.8 degrees, pulse 71, respiratory rate 18, blood pressure 120/67, and oxygen saturation 99% on room air. GENERAL: Awake, alert and in no acute distress. LUNGS: Clear to auscultation bilaterally. No wheezes or crackles. CARDIOVASCULAR: Normal rate. Regular rhythm. Systolic murmur of 1/6. Normal S1 and S2. ABDOMEN: Soft. EXTREMITIES: No edema. CARDIAC MEDICATIONS 1. Metoprolol tartrate 12.5 mg p.o. q.12 h. 2. Aspirin 81 mg p.o. daily. 3. Amiodarone 200 mg p.o. b.i.d. 4. Atorvastatin 10 mg p.o. at bedtime. LABS: None today. Telemetry is AV paced. IMPRESSION 1. Skbgx-wd-cmobgod severe systolic heart failure: Status post automatic implanted cardioverter defibrillator. 2. Acute kidney injury on chronic kidney disease, now initiated on hemodialysis. 3. Diabetes mellitus. 4. Hypertension. 5. Paroxysmal atrial fibrillation: Currently, sinus rhythm. 6. Coronary artery disease: Status post percutaneous coronary intervention and coronary artery bypass graft. RECOMMENDATIONS: Volume management per nephrology given the patient is now declared end-stage renal disease and initiated on hemodialysis. Continue current cardiac medications. Her blood pressure is typically controlled. We will make no changes to her antihypertensive therapy at this time. However, would recommend to transition to metoprolol succinate upon discharge 25 mg p.o. daily. Monitor the patient on telemetry while admitted. She is pending acceptance to an outpatient dialysis chair. Thank you for this consult. We will continue to follow. Job#: [id number] GEOFFREY
[2017-08-30] MEDS: ATORVASTATIN 10 MG TAB PO SCH (20:15)
[2017-08-31] VITALS (8 sets, daily range): BP systolic 111–142; BP diastolic 62–75
[2017-08-31] MEDS: AMIODARONE HCL 200 MG TAB PO SCH ×2 (07:56→16:34)
[2017-08-31] MEDS: PANTOPRAZOLE 40 MG 10ML VIAL IV SCH (07:56)
[2017-08-31] MEDS: ASPIRIN 81 MG CHEW TAB PO SCH (07:56)
[2017-08-31] MEDS: INSULIN REGULAR, HUMAN 100 UNIT/1 ML 3ML VIAL SQ SCH ×4 (07:56→19:57)
[2017-08-31] MEDS: METOPROLOL SUCCINATE 25 MG TAB XL PO SCH (07:56)
--- NOTE | 2017-08-31 16:53 | Progress Note ---
DATE: August 31, 2017 CARDIOLOGY PROGRESS NOTE SUBJECTIVE: The patient denies chest pain or shortness of breath. She is scheduled for left arm AV fistula by Dr. Hernández this coming week. OBJECTIVE VITALS: Temperature 96.8 degrees, pulse 60, respiratory rate 18, blood pressure 136/67, oxygen saturation 100% on room air. GENERAL: Awake, alert and in no acute distress. LUNGS: Clear to auscultation bilaterally. No wheezes or crackles. CARDIOVASCULAR: Normal rate. Regular rhythm. Systolic murmur of 1/6. Normal S1 and S2. ABDOMEN: Soft and nontender. EXTREMITIES: No edema. CARDIAC MEDICATIONS 1. Metoprolol succinate 25 mg p.o. daily. 2. Aspirin 81 mg p.o. daily. 3. Amiodarone 200 mg p.o. b.i.d. 4. Atorvastatin 10 mg p.o. at bedtime. LABS: None today. Telemetry is AV sequential paced. IMPRESSION 1. Lqmmm-bp-exbtrkp severe systolic heart failure: Status post automatic implanted cardioverter defibrillator. 2. Acute kidney injury on chronic kidney disease: Not initiated on hemodialysis. 3. Diabetes mellitus. 4. Hypertension. 5. Paroxysmal atrial fibrillation: Currently, sinus rhythm. 6. Coronary artery disease: Status post percutaneous coronary intervention and coronary artery bypass graft. RECOMMENDATIONS: Volume management per nephrology. Again, the patient is declared end-stage renal disease and initiated on hemodialysis. Continue current cardiac medications. The patient's blood pressure is typically well controlled. However, she does need transition to metoprolol succinate upon discharge. Monitor the patient on telemetry while she is admitted. She has indication for anticoagulation given her atrial fibrillation. However, will not begin given plan for surgery this coming week. Thank you for this consult. We will continue to follow. Job#: [id number] GEOFFREY
[2017-08-31] MEDS: ATORVASTATIN 10 MG TAB PO SCH (19:37)
[2017-09-01 05:00] VITALS: BP 142/78
[2017-09-01 06:10] LABS: BASOPHILS % 0.6 % (0.0-1.0); EOSINOPHILS # (AUTO) 0.2 (0.0-0.4); EOSINOPHILS % 2.8 % (0.0-6.0); HEMOGLOBIN 9.7 g/dL (12.0-16.0); LYMPHOCYTES # (AUTO) 1.2 (1.0-3.2); LYMPHOCYTES % 17.6 % (18.0-39.1); MEAN CORPUSCULAR HEMOGLOBIN 24.5 pg (28-32); MEAN CORPUSCULAR HGB CONC 31.3 g/dL (31-35); MEAN CORPUSCULAR VOLUME 78.3 fL (81-99); MONOCYTES # (AUTO) 0.7 (0.2-0.8); MONOCYTES % 10.2 % (4.4-11.3); NEUTROPHILS # (AUTO) 4.7 (2.1-6.9); NEUTROPHILS % 68.2 % (38.7-80.0); PLATELET COUNT 149 x10e3/uL (140-360); RED BLOOD COUNT 3.96 x10e6/uL (3.6-5.1); RED CELL DISTRIBUTION WIDTH 21.3 % (11.7-14.4)
[2017-09-01 06:31] LABS: ANION GAP 13.2 mmol/L (8-16); CALCIUM 8.7 mg/dL (8.4-10.2); CREATININE, SERUM 1.36 mg/dL (0.57-1.11); POTASSIUM 4.2 mmol/L (3.5-5.1)
[2017-09-01] MEDS: INSULIN REGULAR, HUMAN 100 UNIT/1 ML 3ML VIAL SQ SCH ×4 (07:30→20:47)
[2017-09-01 08:00] VITALS: BP 121/67
[2017-09-01 08:05] VITALS: BP 121/67
[2017-09-01] MEDS: ASPIRIN 81 MG CHEW TAB PO SCH (11:00)
[2017-09-01] MEDS: METOPROLOL SUCCINATE 25 MG TAB XL PO SCH (11:00)
[2017-09-01] MEDS: AMIODARONE HCL 200 MG TAB PO SCH ×2 (11:00→16:21)
[2017-09-01] MEDS: PANTOPRAZOLE 40 MG 10ML VIAL IV SCH (11:00)
[2017-09-01 12:00] VITALS: BP 119/54
--- NOTE | 2017-09-01 13:05 | Progress Note ---
DATE: September 01, 2017 CARDIOLOGY PROGRESS NOTE SUBJECTIVE: Patient denies chest pain or shortness of breath. She was seen receiving hemodialysis. Her left AV fistula was rescheduled to tomorrow. OBJECTIVE VITAL SIGNS: Temperature 98 degrees, pulse 61, respiratory rate 18, blood pressure 119/54, oxygen saturation 95% on room air. GENERAL: Awake, alert, in no acute distress. LUNGS: Clear to auscultation bilaterally. No wheezes or crackles. CARDIOVASCULAR: Normal rate, regular rhythm. Systolic murmur 1/6. Normal S1 and S2. ABDOMEN: Soft, nontender. EXTREMITIES: No edema. CARDIAC MEDICATIONS 1. Metoprolol succinate 25 mg p.o. daily. 2. Aspirin 81 mg p.o. daily. 3. Amiodarone 200 mg p.o. b.i.d. 4. Atorvastatin 10 mg p.o. nightly. LABS: WBC 6.86, hemoglobin 9.7, hematocrit 31, platelets 149. Sodium 132, potassium 4.2, chloride 100, CO2 23, BUN 36, creatinine 1.36. TELEMETRY: AV sequential pacemaker. IMPRESSION 1. Qaybf-dr-yoodwzt severe systolic heart failure, status post automatic implantable cardioverter-defibrillator. 2. Acute kidney injury on chronic kidney disease, now initiated on hemodialysis. 3. Diabetes mellitus. 4. Hypertension. 5. Paroxysmal atrial fibrillation, currently sinus rhythm. 6. Coronary artery disease, status post percutaneous coronary intervention and coronary artery bypass graft. RECOMMENDATIONS: Volume management per Nephrology as the patient has been declared end-stage renal disease and initiated on hemodialysis. Continue current cardiac medications. Monitor patient on telemetry while she is admitted. She has indication for anticoagulation for her atrial fibrillation. However, given plan for surgery, hold anticoagulation for now. Thank you for this consult. We will continue to follow. Job#: [id number] EV
[2017-09-01 16:00] VITALS: BP 122/57
[2017-09-01 20:00] VITALS: BP 157/70
[2017-09-01] MEDS: ATORVASTATIN 10 MG TAB PO SCH (20:47)
[2017-09-02] VITALS (7 sets, daily range): BP systolic 103–125; BP diastolic 50–68
[2017-09-02] MEDS ORDERED: SODIUM CHLORIDE 0.9% 500ML 500 ML ONE (07:11)
[2017-09-02 07:26] LABS: ANION GAP 13.9 mmol/L (8-16); CALCIUM 8.8 mg/dL (8.4-10.2); CREATININE, SERUM 1.75 mg/dL (0.57-1.11); POTASSIUM 3.9 mmol/L (3.5-5.1)
[2017-09-02] MEDS: INSULIN REGULAR, HUMAN 100 UNIT/1 ML 3ML VIAL SQ SCH ×4 (07:30→20:43)
[2017-09-02] MEDS ORDERED: LIDOCAINE HCL 1% LOCAL INJ 20 ML VIAL ONE (07:52)
[2017-09-02] MEDS ORDERED: HEPARIN SOD (PORCINE) 5,000 UNIT/ML VIAL ONE (07:52)
[2017-09-02] MEDS ORDERED: SODIUM CHLORIDE 0.9% 100 ML 0 ML ONE (07:53)
[2017-09-02] MEDS: METOPROLOL SUCCINATE 25 MG TAB XL PO SCH (09:00)
[2017-09-02] MEDS: ASPIRIN 81 MG CHEW TAB PO SCH (09:00)
--- NOTE | 2017-09-02 09:44 | Operative Report ---
DATE OF PROCEDURE: September 02, 2017 PREOPERATIVE DIAGNOSIS: End-stage renal disease. POSTOPERATIVE DIAGNOSIS: End-stage renal disease. PROCEDURE PERFORMED: Creation of left arm primary brachial basilic arteriovenous fistula. CRYSTAL MOUNTER: None. ANESTHESIA: General. INDICATIONS AND FINDINGS: Patient is a 81-year-old female with end-stage renal disease who needs access for long-term hemodialysis. At surgery, the patient was found to have fibrosis of the cephalic vein. However, there was an adequate basilic vein. At the end of the procedure, there was a palpable thrill over the fistula and palpable pulse in the brachial artery distal to the fistula. PROCEDURE: After adequate general anesthesia and the patient in the supine position, the left arm was prepped and draped in a sterile fashion with Cash solution. A transverse incision was made at the antecubital area. The cephalic vein was found to be fibrotic. As the incision was carried deeper, there was adequate basilic vein, however, which was about 3 mm in diameter. This was dissected free and controlled vessel loop. Side branches ligated with Hemoclips. The incision was then carried deeper, and the brachial artery dissected free and controlled with vessel loops. Patient was then given 5000 units of intravenous heparin. The brachial artery was clamped proximally and distally, and the vein was clamped proximally and distally. Arteriotomy was made and a venotomy was made. A #3 Carrie catheter was passed through the vein and passed easily without resistance. Anastomosis was then made between the side of the artery and the side of the vein with running suture of 7-0 Prolene. Once flow was allowed through the fistula, there was a palpable thrill over the fistula, palpable pulse in the brachial artery distal to the fistula. Hemostasis was seen to be adequate. The wound was then closed with 3-0 Vicryl subcutaneous tissue and norma for the skin. Sterile dressing was applied. The patient tolerated the procedure well. Estimated blood loss was 20 mL. There were no complications. All counts were correct. Patient was taken to the recovery room in satisfactory condition. Job#: [id number] RI cc:MD CRUZ ESCALANTE MD
[2017-09-02] MEDS ORDERED: PROTAMINE SULFATE 10 MG/ML 5 ML VIAL IV ONE (10:00)
[2017-09-02] MEDS: AMIODARONE HCL 200 MG TAB PO SCH ×2 (11:00→17:35)
[2017-09-02] MEDS: EPOETIN ALFA 10000 UNIT/ML VIAL SC SCH (11:00)
[2017-09-02] MEDS: PANTOPRAZOLE 40 MG 10ML VIAL IV SCH (11:00)
--- NOTE | 2017-09-02 13:58 | Progress Note ---
DATE: September 02, 2017 CARDIOLOGY PROGRESS NOTE SUBJECTIVE: Patient denies chest pain or shortness of breath. She was seen postop from left AV fistula creation. OBJECTIVE VITAL SIGNS: Temperature 98.4 degrees, pulse 63, respiratory rate 18, blood pressure 111/54, oxygen saturation 99% on room air. GENERAL: Awake, alert, in no acute distress. LUNGS: Clear to auscultation bilaterally. No wheezes or crackles. CARDIOVASCULAR: Normal rate, regular rhythm. Systolic murmur 1/6. Normal S1 and S2. Device is present in left chest. ABDOMEN: Soft, nontender. EXTREMITIES: No edema. CARDIAC MEDICATIONS 1. Amiodarone 200 mg p.o. b.i.d. 2. Atorvastatin 10 mg p.o. nightly. 3. Metoprolol succinate 25 mg p.o. daily. 4. Aspirin 81 mg p.o. daily. LABS: Sodium 133, potassium 3.9, chloride 100, CO2 23, BUN 26, creatinine 1.75. TELEMETRY: A sensed, V paced. IMPRESSION 1. Xhfqx-yv-bdbizws severe systolic heart failure, status post automatic implantable cardioverter-defibrillator. 2. Acute kidney injury on chronic kidney disease, now initiated on hemodialysis. 3. Diabetes mellitus. 4. Hypertension. 5. Paroxysmal atrial fibrillation, currently sinus rhythm. 6. Coronary artery disease, status post percutaneous coronary intervention and coronary artery bypass graft. RECOMMENDATIONS: Volume management per nephrology as the patient has been declared end-stage renal disease and initiated on hemodialysis. Continue current cardiac medications. Monitor patient on telemetry. The patient has indication for anticoagulation for CVA prophylaxis given her atrial fibrillation. Plan to start once okay from a surgical standpoint. Thank you for this consult. We will continue to follow. Job#: [id number]
[2017-09-02] MEDS: HYDROCODONE/APAP 5MG-325MG TAB PO PRN ×2 (17:42→22:22)
[2017-09-02] MEDS ORDERED: PROPOFOL IV EMULSION 10 MG/ML 20 ML VIAL ONE (18:00)
[2017-09-02] MEDS ORDERED: LIDOCAINE HCL 2% LOCAL INJ 5 ML SDV VIAL INJ ONE (18:00)
[2017-09-02] MEDS ORDERED: PHENYLEPHRINE HCL 1% 10 MG/ML VIAL ONE (18:00)
[2017-09-02] MEDS ORDERED: SEVOFLURANE INHAL SOLN 250 ML PEN BTL ONE (18:00)
[2017-09-02] MEDS ORDERED: MIDAZOLAM HCL 2 MG/2 ML VIAL ONE (18:40)
[2017-09-02] MEDS ORDERED: FENTANYL CITRATE/PF 100MCG/2 ML INJ ONE (18:40)
[2017-09-02] MEDS: ATORVASTATIN 10 MG TAB PO SCH (20:43)
[2017-09-03] VITALS: BP 115/53
[2017-09-03 04:00] VITALS: BP 109/53
[2017-09-03] MEDS: INSULIN REGULAR, HUMAN 100 UNIT/1 ML 3ML VIAL SQ SCH ×4 (07:30→20:24)
[2017-09-03] MEDS: HYDROCODONE/APAP 5MG-325MG TAB PO PRN ×2 (08:44→22:30)
[2017-09-03] MEDS: AMIODARONE HCL 200 MG TAB PO SCH ×2 (08:44→20:31)
[2017-09-03] MEDS: METOPROLOL SUCCINATE 25 MG TAB XL PO SCH (08:44)
[2017-09-03] MEDS: ASPIRIN 81 MG CHEW TAB PO SCH (08:44)
[2017-09-03] MEDS: PANTOPRAZOLE 40 MG 10ML VIAL IV SCH (08:44)
[2017-09-03 09:10] VITALS: BP 122/56
[2017-09-03 09:11] VITALS: BP 122/56
[2017-09-03 14:11] VITALS: BP 130/58
--- NOTE | 2017-09-03 17:19 | Progress Note ---
DATE: September 03, 2017 CARDIOLOGY PROGRESS NOTE SUBJECTIVE: Patient denies chest pain or shortness of breath. She complains of pain at her left AV fistula surgical site. OBJECTIVE VITAL SIGNS: Temperature 97.7 degrees, pulse 60, respiratory rate 20, blood pressure 122/56, oxygen saturation 95% on room air. GENERAL: Awake, alert, in no acute distress. LUNGS: Clear to auscultation bilaterally. No wheezes or crackles. CARDIOVASCULAR: Normal rate, regular rhythm. Systolic murmur 1/6. Normal S1 and S2. Device is present in left chest. ABDOMEN: Soft, nontender. EXTREMITIES: No edema. Left arm with dressing in place. CARDIAC MEDICATIONS 1. Aspirin 81 mg p.o. daily. 2. Amiodarone 200 mg p.o. b.i.d. 3. Atorvastatin 10 mg p.o. nightly. 4. Metoprolol succinate 25 mg p.o. daily. LABS: None today. TELEMETRY: V paced. IMPRESSION 1. Zegea-tq-kpxkkjk severe systolic heart failure, status post automatic implantable cardioverter-defibrillator. 2. Acute kidney injury on chronic kidney disease, now initiated on hemodialysis. 3. Diabetes mellitus. 4. Hypertension. 5. Paroxysmal atrial fibrillation, currently sinus rhythm. 6. Coronary artery disease, status post percutaneous coronary intervention and coronary artery bypass graft. RECOMMENDATIONS: Volume management per nephrology as the patient has been declared end-stage renal disease and initiated on hemodialysis. Continue current cardiac medications. Monitor patient on telemetry. Although the patient has indication for anticoagulation due to her paroxysmal atrial fibrillation, no atrial fibrillation has been documented on device interrogation. Hold anticoagulation for now. We will follow up in the office. Thank you for this consult. We will continue to follow. Job#: [id number]
[2017-09-03] MEDS ORDERED: NITROGLYCERIN 2% OINT 1 GM PKT TOP ONE (19:15)
[2017-09-03] MEDS: ATORVASTATIN 10 MG TAB PO SCH (20:31)
[2017-09-03 20:40] VITALS: BP 128/64
[2017-09-04 01:05] VITALS: BP 117/63
[2017-09-04 05:46] VITALS: BP 107/47
[2017-09-04] MEDS: INSULIN REGULAR, HUMAN 100 UNIT/1 ML 3ML VIAL SQ SCH ×2 (07:30→11:30)
[2017-09-04] MEDS: AMIODARONE HCL 200 MG TAB PO SCH (09:05)
[2017-09-04] MEDS: ASPIRIN 81 MG CHEW TAB PO SCH (09:05)
[2017-09-04] MEDS: METOPROLOL SUCCINATE 25 MG TAB XL PO SCH (09:05)
[2017-09-04] MEDS: EPOETIN ALFA 10000 UNIT/ML VIAL SC SCH (09:05)
[2017-09-04] MEDS: PANTOPRAZOLE 40 MG 10ML VIAL IV SCH (09:05)
[2017-09-04 10:21] VITALS: BP 129/59
--- NOTE | 2017-09-04 10:39 | Progress Note ---
DATE: September 04, 2017 CARDIOLOGY PROGRESS NOTE SUBJECTIVE: Patient denies chest pain or shortness of breath. She reports she may be going home today. OBJECTIVE VITAL SIGNS: Temperature 98.7 degrees, pulse 72, respiratory rate 17, blood pressure 107/47, oxygen saturation 95% on room air. GENERAL: Awake, alert, in no acute distress. LUNGS: Clear to auscultation bilaterally. No wheezes or crackles. CARDIOVASCULAR: Normal rate, regular rhythm. Systolic murmur 1/6. Normal S1 and S2. Device is present in left chest. ABDOMEN: Soft, nontender. EXTREMITIES: No edema. CARDIAC MEDICATIONS 1. Metoprolol succinate 25 mg p.o. daily. 2. Aspirin 81 mg p.o. daily. 3. Amiodarone 200 mg p.o. b.i.d. 4. Atorvastatin 10 mg p.o. nightly. LABS: None today. TELEMETRY: A sensed, V paced. IMPRESSION 1. [id number] severe systolic heart failure, status post automatic implantable cardioverter-defibrillator. 2. Acute kidney injury on chronic kidney disease, now initiated on hemodialysis. 3. Diabetes mellitus. 4. Hypertension. 5. Paroxysmal atrial fibrillation, currently sinus rhythm. 6. Coronary artery disease, status post percutaneous coronary intervention and coronary artery bypass graft. RECOMMENDATIONS: Volume management per nephrology given the patient has been declared end-stage renal disease and initiated on hemodialysis. Continue current cardiac medications. Monitor patient on telemetry. Although the patient has indication for anticoagulation due to her paroxysmal atrial fibrillation, no atrial fibrillation has been documented on device interrogation. Hold anticoagulation for now. We will monitor in the office. Thank you for this consult. We will continue to follow. Job#: [id number]
== END 2017-09-04 18:04 | disposition home or self-care (01) | DRG 673 ==
LOC: ER 01:36 → ERHOLD 05:12 → MED/SURG2 07:34
PROVIDERS: ADMIT Internal Medicine; ATTEND Internal Medicine
PROC: 0JH63XZ Insertion of Tunneled Vascular Access Device into Chest Subcutaneous Tissue and Fascia, Percutaneous Approach (ICD-10-PCS; 2017-08-23)
PROC: 5A1D70Z Performance of Urinary Filtration, Intermittent, Less than 6 Hours Per Day (ICD-10-PCS; 2017-08-23)
PROC: 02H633Z Insertion of Infusion Device into Right Atrium, Percutaneous Approach (ICD-10-PCS; 2017-08-23)
PROC: 5A1D70Z Performance of Urinary Filtration, Intermittent, Less than 6 Hours Per Day (ICD-10-PCS; 2017-08-25)
PROC: 02H633Z Insertion of Infusion Device into Right Atrium, Percutaneous Approach (ICD-10-PCS; 2017-08-25)
PROC: 5A1D70Z Performance of Urinary Filtration, Intermittent, Less than 6 Hours Per Day (ICD-10-PCS; 2017-08-27)
PROC: 5A1D70Z Performance of Urinary Filtration, Intermittent, Less than 6 Hours Per Day (ICD-10-PCS; 2017-08-29)
PROC: 031809F Bypass Left Brachial Artery to Lower Arm Vein with Autologous Venous Tissue, Open Approach (ICD-10-PCS; principal; 2017-09-02 08:00)
PROC: 5A1D70Z Performance of Urinary Filtration, Intermittent, Less than 6 Hours Per Day (ICD-10-PCS; 2017-09-03)
DX: N17.9 Acute kidney failure, unspecified (principal); I50.23 Acute on chronic systolic (congestive) heart failure; I13.2 Hypertensive heart and chronic kidney disease with heart failure and with stage 5 chronic kidney disease, or end stage renal disease; E87.1 Hypo-osmolality and hyponatremia; E87.2 Acidosis; N18.6 End stage renal disease; E86.0 Dehydration; E11.22 Type 2 diabetes mellitus with diabetic chronic kidney disease; Z99.2 Dependence on renal dialysis; Z79.4 Long term (current) use of insulin; I25.10 Atherosclerotic heart disease of native coronary artery without angina pectoris; Z95.810 Presence of automatic (implantable) cardiac defibrillator; I48.0 Paroxysmal atrial fibrillation; Z79.01 Long term (current) use of anticoagulants; E87.5 Hyperkalemia; Z95.5 Presence of coronary angioplasty implant and graft; Z95.1 Presence of aortocoronary bypass graft; E03.9 Hypothyroidism, unspecified; I25.2 Old myocardial infarction; D63.1 Anemia in chronic kidney disease
CPT/HCPCS: 36415; 36556; 36565; 36580; 36600; 71046; 74470; 76937; 77001; 80048; 80053; 80061; 81001; 82550; 82553; 82805; 82948; 83690; 83735; 83880; 84443; 84484; 85025; 85610; 85730; 86704; 86707; 86803; 87340; 90962; 93005; 99284; C1750; C1769; J1644; J2001; J2150; J2250; J2370; J2720; J7030; J7040; Q4081

== ENCOUNTER → 2017-12-09 | Day surgery (SDC) | payer MEDICARE ==
[2017-12-08 17:33] LABS: BASOPHILS # (AUTO) 0.1 (0.0-0.1); BASOPHILS % 0.7 % (0.0-1.0); EOSINOPHILS # (AUTO) 0.4 (0.0-0.4); EOSINOPHILS % 4.3 % (0.0-6.0); HEMATOCRIT 41.7 % (34.2-44.1); HEMOGLOBIN 13.8 g/dL (12.0-16.0); LYMPHOCYTES # (AUTO) 1.5 (1.0-3.2); LYMPHOCYTES % 17.1 % (18.0-39.1); MEAN CORPUSCULAR HEMOGLOBIN 30.5 pg (28-32); MEAN CORPUSCULAR HGB CONC 33.1 g/dL (31-35); MEAN CORPUSCULAR VOLUME 92.3 fL (81-99); MONOCYTES # (AUTO) 0.7 (0.2-0.8); MONOCYTES % 7.4 % (4.4-11.3); NEUTROPHILS # (AUTO) 6.1 (2.1-6.9); NEUTROPHILS % 70.2 % (38.7-80.0); PLATELET COUNT 91 x10e3/uL (140-360); RED BLOOD COUNT 4.52 x10e6/uL (3.6-5.1); RED CELL DISTRIBUTION WIDTH 14.2 % (11.7-14.4)
--- NOTE | 2017-12-08 18:19 | Diagnostic Imaging Report ---
PROCEDURE: Frontal and lateral views of the chest. COMPARISON: 08/23/17 INDICATIONS: PREOP CXR FINDINGS: Lines/tubes: Stable left chest wall cardiac device. New double lumen catheter right internal jugular catheter with tip overlying right atrium. Lungs: The lungs are well inflated and clear. Mild central peribronchovascular thickening/cuffing. Pleura: There is no pleural effusion or pneumothorax. Heart and mediastinum: The cardiac silhouette is enlarged. Aorta is calcified and mildly tortuous. Bones: No acute bony abnormality. IMPRESSION: Enlarged cardiac silhouette with mild central peribronchovascular thickening/cuffing. Dictated by: Wayne Carcamo M.D. on 12/08/2017 at 18:25 Electronically approved by: Wayne Carcamo M.D. on 12/08/2017 at 18:25
[~2017-12-09] MED LIST changes: +ACETAMINOPHEN1 EACH PO; +ASPIRIN81 MG PO; +CEFAZOLIN SOD 1 GM VIAL ONE; +ENTRESTO PO; +FENTANYL CITRATE/PF 100MCG/2 ML INJ ONE; +HEPARIN SOD (PORCINE) 5,000 UNIT/ML VIAL ONE; +HUMALOG100 UNIT/1 SQ; +INSULIN REGULAR, HUMAN 100 UNIT/1 ML 3ML VIAL ONE; +LEVEMIR100 UNIT/1 SQ; +LIDOCAINE HCL 2% LOCAL INJ 5 ML SDV VIAL INJ ONE; +METOLAZONE5 MG PO; +MINOCYCLINE HC100 MG PO; +NEOSTIGMINE 5 MG/5ML SYR ONE; +ONDANSETRON HCL INJ 2 MG/ML VIAL ONE; +PROPOFOL IV EMULSION 10 MG/ML 20 ML VIAL ONE; +SEVOFLURANE INHAL SOLN 250 ML PEN BTL ONE; +SODIUM CHLORIDE 0.9% 100 ML 0 ML ONE; +SODIUM CHLORIDE 0.9% 500ML 500 ML ONE; +TRAZODONE HCL50 MG PO; +TYLENOL WITH C1 EACH PO
[2017-12-09 07:10] LABS: ANION GAP 20.6 mmol/L (8-16); CALCIUM 9.9 mg/dL (8.4-10.2); CREATININE, SERUM 1.95 mg/dL (0.57-1.11); POTASSIUM 4.6 mmol/L (3.5-5.1)
[2017-12-09 07:24] LABS: INR 1.14; PROTHROMBIN TIME 13.7 seconds (11.9-14.5)
[2017-12-09 07:25] LABS: PARTIAL THROMBOPLASTIN TIME 32.8 seconds (23.8-35.5)
[2017-12-09 10:30] VITALS: BP 115/53
--- NOTE | 2017-12-09 10:44 | Operative Report ---
DATE OF PROCEDURE: December 09, 2017 PREOPERATIVE DIAGNOSES 1. End-stage renal disease. 2. Status post brachial basilic fistula. POSTOPERATIVE DIAGNOSES 1. End-stage renal disease. 2. Status post brachial basilic fistula. PROCEDURE: Revision of left arm arteriovenous fistula with transposition of basilic vein. BOBBIN CLEANING MACHINE OPERATOR: None. ANESTHESIA: General. INDICATIONS AND FINDINGS: An 82-year-old female with end-stage renal disease currently dialyzed via catheter. She has a left brachial basilic fistula, which needs to be revised. At surgery, the brachial basilic fistula was patent with excellent thrill. Vein was dilated to about 6 mm. The vein easily transposed in the subcutaneous tissue. At the end of the procedure, there was palpable thrill over the fistula. TECHNIQUE: After adequate general anesthesia with the patient in the supine position, the left arm was prepped and draped in a sterile fashion with Cash solution. Incision made starting at the antecubital area over the beginning portion of the basilic vein at the anastomosis. The basilic vein was dissected free and controlled with a vessel loop. Incision was made along the course of the basilic vein. The vein was dissected free from surrounding tissues. Side branches ligated with Hemoclips. Care was taken to preserve the musculocutaneous nerve and the vein was dissected free all the way up to the axilla. It was well-developed and probably about 6 mm in diameter easily transposing the subcutaneous tissue. Subcutaneous tissues was dissected way from the underlying muscle and the vein moved in the subcutaneous tissue and the fascia. The muscle was closed beneath the transposed vein with a running suture of 2-0 Vicryl. Subcutaneous tissue was then closed with a running suture of 3-0 Vicryl. Skin was closed with norma. Prior to closure, the wound was irrigate with saline and inspected for hemostasis, which was seen to be adequate. The patient tolerated the procedure well. Estimated blood loss was 75 mL. There were no complications. All counts were correct. Patient was taken to the recovery room in satisfactory condition with a palpable thrill over the fistula. Job#: [id number] GEOFFREY
== END | disposition home or self-care (01) ==
LOC: OR 05:28
PROVIDERS: ATTEND Surgery
DX: E11.22 Type 2 diabetes mellitus with diabetic chronic kidney disease (principal); I12.0 Hypertensive chronic kidney disease with stage 5 chronic kidney disease or end stage renal disease; N18.6 End stage renal disease; Z01.810 Encounter for preprocedural cardiovascular examination; Z01.812 Encounter for preprocedural laboratory examination; Z01.818 Encounter for other preprocedural examination; Z79.4 Long term (current) use of insulin; Z79.82 Long term (current) use of aspirin; Z99.2 Dependence on renal dialysis; Z95.0 Presence of cardiac pacemaker
CPT/HCPCS: 36415; 36832; 71046; 80048; 82948; 85025; 85610; 85730; 93005; J0690; J2001; J2405; J7040; J1644

== ENCOUNTER 2019-05-11 16:40 | Inpatient (IN) | payer MEDICARE ==
[~2019-05-11] VITALS: Ht 157.5 cm; Wt 65.4 kg
[~2019-05-11 16:40] MED LIST changes: -CEFAZOLIN SOD 1 GM VIAL ONE; -FENTANYL CITRATE/PF 100MCG/2 ML INJ ONE; -HEPARIN SOD (PORCINE) 5,000 UNIT/ML VIAL ONE; -INSULIN REGULAR, HUMAN 100 UNIT/1 ML 3ML VIAL ONE; -LIDOCAINE HCL 2% LOCAL INJ 5 ML SDV VIAL INJ ONE; -NEOSTIGMINE 5 MG/5ML SYR ONE; -ONDANSETRON HCL INJ 2 MG/ML VIAL ONE; -PROPOFOL IV EMULSION 10 MG/ML 20 ML VIAL ONE; -SEVOFLURANE INHAL SOLN 250 ML PEN BTL ONE; -SODIUM CHLORIDE 0.9% 100 ML 0 ML ONE; -SODIUM CHLORIDE 0.9% 500ML 500 ML ONE
[2019-05-11] MEDS ORDERED: ASPIRIN 81 MG CHEW TAB PO ONE (17:00)
--- NOTE | 2019-05-11 19:09 | NUR ---
Report to EULA Tirado
--- NOTE | 2019-05-11 20:08 | Diagnostic Imaging Report ---
EXAMINATION: CT of the abdomen and pelvis without contrast. TECHNIQUE: Helical CT images of the abdomen and pelvis were performed from the lung bases to the lesser trochanters. No intravenous contrast was given per renal stone protocol. Coronal and sagittal reformatted images were obtained.Dose modulation, iterative reconstruction, and/or weight based adjustment of the mA/kV was utilized to reduce the radiation dose to as low as reasonably achievable. COMPARISON: None. CLINICAL HISTORY:Intractable vomiting DISCUSSION: ABSENCE OF INTRAVENOUS CONTRAST DECREASES SENSITIVITY FOR DETECTION OF FOCAL LESIONS AND VASCULAR PATHOLOGY. ABDOMEN/PELVIS: LOWER THORAX: Unremarkable. HEPATOBILIARY:No focal hepatic lesions. No biliary ductal dilation. The gallbladder is normal. SPLEEN: No splenomegaly. PANCREAS: No focal masses or ductal dilatation. ADRENALS: No adrenal nodules. KIDNEYS/URETERS: No hydronephrosis, stones, or solid mass lesions. PELVIC ORGANS/BLADDER: The bladder is normal. PERITONEUM/RETROPERITONEUM: Inflammatory stranding around the pancreatic head and duodenum. LYMPH NODES: No intra-abdominal,retroperitoneal, pelvic or inguinal lymphadenopathy. VESSELS: Vascular calcifications. Limited evaluation. GI TRACT: Colonic diverticulosis without inflammatory change. BONES AND SOFT TISSUES: Soft tissue stranding in the anterior abdomen may reflect prior injection. IMPRESSION: Stranding adjacent to the pancreatic head and duodenum may reflect pancreatitis versus duodenitis. Colonic diverticulosis without inflammatory change. Signed by: Dr. Fernando Cutler M.D. on 05/11/2019 8:05 PM
[2019-05-11 20:27] LABS: BASOPHILS % 0.2 % (0.0-1.0); EOSINOPHILS # (AUTO) 0.1 (0.0-0.4); EOSINOPHILS % 0.7 % (0.0-6.0); HEMATOCRIT 37.8 % (34.2-44.1); HEMOGLOBIN 12.7 g/dL (12.0-16.0); LYMPHOCYTES # (AUTO) 0.4 (1.0-3.2); LYMPHOCYTES % 2.5 % (18.0-39.1); MEAN CORPUSCULAR HEMOGLOBIN 30.7 pg (28-32); MEAN CORPUSCULAR HGB CONC 33.6 g/dL (31-35); MEAN CORPUSCULAR VOLUME 91.3 fL (81-99); MONOCYTES # (AUTO) 0.4 (0.2-0.8); MONOCYTES % 2.4 % (4.4-11.3); NEUTROPHILS # (AUTO) 15.8 (2.1-6.9); NEUTROPHILS % 93.7 % (38.7-80.0); PLATELET COUNT 201 x10e3/uL (140-360); RED BLOOD COUNT 4.14 x10e6/uL (3.6-5.1); RED CELL DISTRIBUTION WIDTH 13.8 % (11.7-14.4)
[2019-05-11 20:47] LABS: ALBUMIN 4.1 g/dL (3.5-5.0); ALBUMIN/GLOBULIN RATIO 1.2 (0.8-2.0); ANION GAP 20.3 mmol/L (8-16); CALCIUM 9.2 mg/dL (8.4-10.2); CREATININE, SERUM 2.86 mg/dL (0.57-1.11); POTASSIUM 4.3 mmol/L (3.5-5.1)
[2019-05-11 20:54] LABS: CREATINE KINASE MB 2.3 ng/mL (0-5.0)
[2019-05-11] MEDS ORDERED: DEXTROSE 50% SYRINGE 50 ML IV PRN (22:00)
[2019-05-11] MEDS: PIPERACILLIN/TAZO 2.25 GM 50 ML IV SCH (23:50)
[2019-05-11] MEDS: SODIUM CHLORIDE 0.9% 1000ML 1,000 ML IV SCH (23:50)
[2019-05-12] VITALS (10 sets, daily range): BP systolic 95–129; BP diastolic 48–61
--- NOTE | 2019-05-12 00:06 | Diagnostic Imaging Report ---
HISTORY: Intractable vomiting TECHNIQUE: Selected static images from complete abdominal ultrasound provided for INTERPRETATION: COMPARISON: CT abdomen/pelvis 05/11/2019, renal ultrasound report performed 04/13/2016 FINDINGS: Pancreas: Visualized portions are normal without mass or ductal dilatation. Liver: Measures 14.4 cm in sagittal plane. The echotexture is normal. The contours are lobulated No mass in the visualized portions. Portal Vein: Measures 1.2 cm. Hepatopetal flow on spectral Doppler interrogation. Biliary Tree: Normal Gallbladder: Present and is distended. Calcified gallstone measures 7 x 10 mm. No gallbladder wall thickening or pericholecystic fluid. Sonographic Meyer sign is negative. CBD: 0.5 cm. Right Kidney: Length is 9.8cm. Echotexture is normal. The cortex is thin. 3 mm hyperechoic and non-shadowing focus in the interpolar cortex. No corresponding lesion identified on CT. Left Kidney: Length is 9.8cm. Echotexture is normal. The cortex is thin. No mass or hydronephrosis. Spleen: 12.7cm in length. No evidence for mass. Proximal Aorta: 1.2 cm. Mid and distal portions of the aorta are not visible due to bowel gas. IVC: Patent No free fluid IMPRESSION: 1. 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 No evidence of portal hypertension. No hepatic mass. 2. Cholelithiasis. No sonographic evidence of acute cholecystitis. No biliary ductal dilatation. 3. Atrophic kidneys suggestive of chronic renal disease. No hydronephrosis. 3 mm hyperechoic focus in the right kidney may represent a calcification, specular reflection, or fat within an AML. Signed by: Dr. Suma Vanegas MD on 05/12/2019 12:03 AM
--- NOTE | 2019-05-12 02:18 | NUR ---
PT ARRIVED VIA STRETCHER FROM ER. PT ALERT AND ORIENTED X3. PT BROUGHT ROLLING WALKER FROM HOME NOW AT BEDSIDE. RESPIRATIONS ARE EVEN AND UNLABORED. NO DISTRESS NOTED. ORIENTED PT TO ROOM AND CALL LIGHT.LT AV FISTULA NOTED- BRUIT AND THRILL PRESENT. LEFT PT IN SEMIFOWLERS POSITION. SIDERAILS UP X2 . BED IN LOW LOCKED POSITION. CALL LIGHT AND PHONE WITHIN REACH. BED ALARM ACTIVATED ZONE 1
[2019-05-12] MEDS: MORPHINE SULFATE 2 MG/ML SYR 1ML IV PRN ×2 (03:00→15:40)
[2019-05-12] MEDS: ONDANSETRON HCL INJ 2MG/ML 2ML 2 MG/ML VIAL IV PRN ×2 (03:00→15:40)
[2019-05-12] MEDS ORDERED: FENOFIBRATE134 MG PO (03:57)
[2019-05-12] MEDS ORDERED: PAXIL10 MG PO (03:57)
[2019-05-12] MEDS ORDERED: ENTRESTO 24 MG1 EACH PO (03:57)
[2019-05-12] MEDS ORDERED: HUMALOG100 UNIT/3 SQ (03:57)
[2019-05-12] MEDS: INSULIN REGULAR, HUMAN 100 UNIT/1 ML 3ML VIAL SQ SCH ×3 (06:20→18:00)
[2019-05-12 06:47] LABS: BASOPHILS % 0.2 % (0.0-1.0); EOSINOPHILS % 0.1 % (0.0-6.0); HEMATOCRIT 33.8 % (34.2-44.1); HEMOGLOBIN 11.2 g/dL (12.0-16.0); LYMPHOCYTES # (AUTO) 0.6 (1.0-3.2); LYMPHOCYTES % 4.1 % (18.0-39.1); MEAN CORPUSCULAR HEMOGLOBIN 30.4 pg (28-32); MEAN CORPUSCULAR HGB CONC 33.1 g/dL (31-35); MEAN CORPUSCULAR VOLUME 91.8 fL (81-99); MONOCYTES # (AUTO) 0.3 (0.2-0.8); MONOCYTES % 1.6 % (4.4-11.3); NEUTROPHILS # (AUTO) 14.2 (2.1-6.9); NEUTROPHILS % 93.5 % (38.7-80.0); PLATELET COUNT 191 x10e3/uL (140-360); RED BLOOD COUNT 3.68 x10e6/uL (3.6-5.1); RED CELL DISTRIBUTION WIDTH 13.9 % (11.7-14.4)
[2019-05-12 07:25] LABS: ALBUMIN 3.5 g/dL (3.5-5.0); ALBUMIN/GLOBULIN RATIO 1.4 (0.8-2.0); ANION GAP 14.4 mmol/L (8-16); CALCIUM 8.2 mg/dL (8.4-10.2); CREATININE, SERUM 3.11 mg/dL (0.57-1.11); POTASSIUM 4.4 mmol/L (3.5-5.1)
[2019-05-12] MEDS ORDERED: INSULIN REGULAR, HUMAN 100 UNIT/1 ML 3ML VIAL SQ SCH (07:30)
--- NOTE | 2019-05-12 07:33 | NUR ---
Patient a/ox, no resp distress, in bed, call light within reach, states abdominal pains better, will monitor.
[2019-05-12 07:43] LABS: CHOL/HDL RATIO 3.1 (3.0-3.6)
[2019-05-12] MEDS ORDERED: TRAZODONE HCL 50 MG TAB PO PRN (09:00)
[2019-05-12] MEDS: PIPERACILLIN/TAZO 2.25 GM 50 ML IV SCH ×2 (09:43→21:50)
--- NOTE | 2019-05-12 10:14 | NUR ---
Patient alert and responsive, Call to Dr. Villatoro for f/u consult but he was not aware about. he will see patient later today.
--- NOTE | 2019-05-12 10:18 | NUR ---
consult to Dr. Ruiz and has been called at this time
[2019-05-12] MEDS: LEVOTHYROXINE SODIUM 25 MCG TABLET PO SCH (10:41)
[2019-05-12] MEDS ORDERED: VALSARTAN/SACUBITRIL 24MG/26MG 1 EA TAB PO SCH (10:45)
--- NOTE | 2019-05-12 11:30 | NUR ---
Orders in place for Hemodialysis, consent signed.
--- NOTE | 2019-05-12 13:59 | NUR ---
Rounds by Dr. Chicas and no dialysis will be done today but will be completed tomorrow. CBC and BMP in place
--- NOTE | 2019-05-12 15:48 | History and Physical ---
PRIMARY CARE PHYSICIAN: Dr. Sha Lopez. CONSULTANTS: 1. Dr. Nixon Love. 2. Dr. Gerald Medeiros. 3. Dr. Julio Cesar Ruiz. CHIEF COMPLAINT: Abdominal pain. HISTORY OF PRESENT ILLNESS: The patient is an 83-year-old female, who came in with abdominal pain. The patient found to have gallstone pancreatitis. The patient is otherwise stable. She is comfortable. She is on dialysis. Therefore, gentle IV fluid was given. The patient is otherwise stable. PAST MEDICAL HISTORY: 1. End-stage renal disease, on dialysis. 2. Systolic dysfunction congestive heart failure, compensated. 3. Coronary artery disease with previous bypass graft surgery. 4. Dyslipidemia. 5. 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 6. Diabetic neuropathy. 7. Hypertension. PAST SURGICAL HISTORY: 1. Coronary artery bypass graft surgery. 2. AICD, left chest. 3. Coronary stent. 4. Complete hysterectomy. SOCIAL HISTORY: The patient does not smoke or use alcohol. No regular drugs. ALLERGIES: TO CODEINE. HOME MEDICATIONS: List reviewed. REVIEW OF SYSTEMS: Abdominal pain, improving. PHYSICAL EXAMINATION: VITAL SIGNS: Temperature is 99.6, blood pressure 95/48, pulse rate is 90, and respirations 18. GENERAL: The patient is not in acute distress. She is awake. HEENT: Normocephalic and atraumatic. Anicteric. NECK: Supple grossly. PULMONARY: Diminished breath sounds. CARDIOVASCULAR: Regular rate and rhythm. AICD, left chest. ABDOMEN: Soft. Tenderness with some guarding. EXTREMITIES: No cyanosis or edema. NEUROLOGIC: No focal deficit. LABORATORY DATA: WBC 16.8, hemoglobin 12.7, hematocrit 37.8, and platelets 201. Chemistry; sodium is 131, potassium 4.3, chloride 94, bicarb 21, BUN is 41, creatinine 2.8, and glucose is 297. Amylase is 232. Lipase is 1104. Total bilirubin is 1.3, AST 46, ALT 41, and alkaline phosphatase is 41. IMPRESSION: 1. Acute gallstone pancreatitis. 2. Cholelithiasis on abdominal ultrasound and abdominal CT scan. She had a lobulated liver contour, suggestive of early macular nodular cirrhosis without any portal hypertension. 3. Compensated systolic congestive heart failure. Multiple medical problem at baseline including coronary artery disease with previous bypass graft surgery. PLAN: Continue with home medication. Adjust some medication. Antibiotics. Consultation with Dr. Julio Cesar Ruiz, combiner operator for clearance. Consultation with Dr. Julio Cesar Villatoro and Dr. Gerald Medeiros. Continue with current management. IV fluids. Dialysis. MD OLYA Lou/MODL /[id number]
[2019-05-12] MEDS: SODIUM CHLORIDE 0.9% 1000ML 1,000 ML IV SCH (16:36)
--- NOTE | 2019-05-12 17:02 | NUR ---
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 Labs and meds reviewed. Pt was admitted with ESRD on dialysis and pancreatitis. Pt is currently NPO, but reported she was eating well prior to admission. Pt reports she had lost 10 lbs since April 30 and had weighed 140 lbs. However, pt currently has a weight of 140 lbs in chart. No N/V or chewing/swallowing issues. Will continue to monitor. Current Diet: NPO Malnutrition Evaluation (05/12/2019) The patient does not meet criteria for a specified degree of malnutrition at this time. Will re-evaluate at follow-up as appropriate. Diet Education Needs Assessment: Diet education not indicated, pt is currently NPO Nutrition Care Level: low Signed: Candida Watts, RD, LD
[2019-05-12] MEDS: INSULIN GLARGINE 100 UNITS/ML VIAL SQ SCH (21:00)
--- NOTE | 2019-05-12 21:15 | Consultation ---
DATE OF CONSULTATION: 05/12/2019 HISTORY OF PRESENT ILLNESS: An 83-year-old female, who was admitted with presumed pancreatitis and has GI and General Surgery on consult. She missed her dialysis yesterday. Renal was consulted for management of underlying kidney failure. She initially had abdominal pain, nausea, and vomiting. She is better today. Denies any nausea and vomiting. Has some of the epigastric discomfort. No radiation. No fever, no chills. CT shows colonic diverticulosis with stranding adjacent to the pancreatic head and duodenum, which may reflect pancreatitis versus duodenitis. She is allergic to codeine. Her is by bedside. PAST HISTORY: Diabetes, hypertension, end-stage renal disease, hypothyroidism, secondary hyperparathyroidism, anemia, chronic kidney disease. MEDICATIONS: Currently, the patient is receiving IV normal saline at 75 mL an hour, which I am going to change to 50 mL an hour giving her end-stage renal disease and anuric state. She is on piperacillin/tazobactam, aspirin 81 mg, levothyroxine 25 mcg daily, regular insulin, trazodone 50 mg at bedtime. She is on valsartan/sacubitril, which I am going to stop. She is on Zofran. SOCIAL HISTORY: Does not smoke or drink. FAMILY HISTORY: Significant for hypertension. PHYSICAL EXAMINATION: GENERAL: Awake, alert, lying supine, in no apparent distress. VITAL SIGNS: Blood pressure 95/48, pulse 90, afebrile. HEAD AND NECK: Cornea clear. Oral mucosa moist. Neck veins flat. LUNGS: Relatively clear. HEART: S1, S2 audible. ABDOMEN: Soft, nontender. No apparent visceromegaly. No deep palpation done. EXTREMITIES: Lower extremity, no edema. LABORATORY DATA: Labs show white count 16.8, hemoglobin 12.7. Calcium 8.2, total bilirubin 1.3. AST 46 with a lipase 381. Amylase 232. Triglycerides 180, potassium 4.4, creatinine 3.11, blood sugar 225. IMPRESSION: End-stage renal disease, possible duodenitis, pancreatitis. IV fluid adjustment made. Blood pressure low. Arrange for dialysis. Discussed with bedside RN. Please see orders. Catrina Chicas MD SAK/MODL /[id number]
--- NOTE | 2019-05-12 21:50 | NUR ---
PATIENT RESTING IN BED, BOTH EYES CLOSED, NO DISTRESS NOTED. IV FLUIDS ARE RUNNING AT ORDERED RATE AND PATIENT VOICES NO PAIN AT THIS TIME. PATIENT AWARE OF NPO ORDER, BED IN LOWEST POSITION, BOTH SIDE RAILS ARE UP, CALL LIGHT WITHIN EASY REACH, WILL CONTINUE TO MONITOR.
[2019-05-13] VITALS (7 sets, daily range): BP systolic 99–142; BP diastolic 50–61
--- NOTE | 2019-05-13 00:15 | Consultation ---
DATE OF CONSULTATION: 05/12/2019 Cardiology Consultation REQUESTING PHYSICIAN: Pierce Iyer MD REASON FOR CONSULTATION: Preoperative evaluation. HISTORY OF PRESENT ILLNESS: This is an 83-year-old woman with a history of coronary artery disease status post bypass and stents, hypertension, diabetes mellitus, and chronic kidney disease, paroxysmal atrial fibrillation, severe systolic heart failure status post AICD and end-stage renal disease, on hemodialysis, who presents with complaints of diarrhea and vomiting. The patient states that she had been doing well up until Friday, which revealed diarrhea and vomiting. She saw her primary care physician, who instructed her to present to the ER for further evaluation. She was found to have gallstone pancreatitis, and was admitted for further care. Cardiology is consulted for preop evaluation prior to cholecystectomy. The patient reports she has been doing well. Denies any chest pain, shortness of breath, palpitations, edema, orthopnea, or PND. REVIEW OF SYSTEMS: Negative except as per HPI. PAST MEDICAL HISTORY: 1. Coronary artery disease, status post bypass and stents. 2. Severe systolic heart failure, status post ICD. 3. Paroxysmal atrial fibrillation. 4. Hypertension. 5. Diabetes mellitus. 6. Hyperlipidemia. 7. End-stage renal disease, on hemodialysis. PAST SURGICAL HISTORY: 1. CABG. 2. Hysterectomy. ALLERGIES: PLEASE SEE EMR. MEDICATIONS: Please see medication list. SOCIAL HISTORY: No tobacco, alcohol, or illicit drugs. FAMILY HISTORY: Noncontributory to current illness. PHYSICAL EXAMINATION: VITAL SIGNS: Temperature 99.9 degrees, pulse 73, respiratory rate 18, blood pressure 104/50, oxygen 93% on room air. GENERAL: Elderly woman, in no acute distress, well-developed, well-nourished. HEENT: Normocephalic. Atraumatic. Pupils equal. No scleral icterus. NECK: Supple. No thyromegaly or cervical lymphadenopathy. No carotid bruits. LUNGS: Clear to auscultation bilaterally. No wheezes or crackles. CARDIOVASCULAR: Normal rate. Regular rhythm. Systolic murmur 1/6. Normal S1, S2. Device present on left chest. ABDOMEN: Soft and nontender. EXTREMITIES: No edema. NEUROLOGIC: Nonfocal exam. LABORATORY DATA: WBC 15.19, hemoglobin 11.2, hematocrit 33.8, platelets 191. Sodium 130, potassium 4.4, chloride 96, CO2 24. BUN 52, creatinine 3.11. Cholesterol 107, triglycerides 180, LDL 36, HDL 35. Amylase 232, lipase 381. IMPRESSION: 1. Gallstone pancreatitis. 2. Preoperative evaluation. 3. Coronary artery disease, status post bypass and stents. 4. Chronic systolic heart failure, status post AICD appears compensated. 5. Hypertension. 6. Hyperlipidemia. 7. Diabetes mellitus. 8. Paroxysmal atrial fibrillation. 9. End-stage renal disease, on hemodialysis. RECOMMENDATIONS: Obtain echocardiogram. We will check ICD as the patient has not been seen in the office for over one year. Monitor the patient closely on telemetry, get EKG, continue home cardiac medications. Further recommendations, pending test results. Thank you for this consult. We will continue to follow. Marni Schmitt MD ABS/MODL /[id number]
[2019-05-13 05:43] LABS: BASOPHILS % 0.2 % (0.0-1.0); EOSINOPHILS # (AUTO) 0.1 (0.0-0.4); EOSINOPHILS % 0.8 % (0.0-6.0); HEMATOCRIT 31.3 % (34.2-44.1); HEMOGLOBIN 10.3 g/dL (12.0-16.0); LYMPHOCYTES # (AUTO) 0.6 (1.0-3.2); LYMPHOCYTES % 4.4 % (18.0-39.1); MEAN CORPUSCULAR HEMOGLOBIN 30.7 pg (28-32); MEAN CORPUSCULAR HGB CONC 32.9 g/dL (31-35); MEAN CORPUSCULAR VOLUME 93.4 fL (81-99); MONOCYTES # (AUTO) 0.4 (0.2-0.8); MONOCYTES % 2.7 % (4.4-11.3); NEUTROPHILS % 90.6 % (38.7-80.0); PLATELET COUNT 177 x10e3/uL (140-360); RED BLOOD COUNT 3.35 x10e6/uL (3.6-5.1); RED CELL DISTRIBUTION WIDTH 13.8 % (11.7-14.4)
[2019-05-13] MEDS: LEVOTHYROXINE SODIUM 25 MCG TABLET PO SCH (05:47)
[2019-05-13] MEDS: INSULIN REGULAR, HUMAN 100 UNIT/1 ML 3ML VIAL SQ SCH ×6 (05:47→23:46)
[2019-05-13 05:58] LABS: ANION GAP 21.2 mmol/L (8-16); CALCIUM 8.4 mg/dL (8.4-10.2); CREATININE, SERUM 4.06 mg/dL (0.57-1.11); POTASSIUM 4.2 mmol/L (3.5-5.1)
--- NOTE | 2019-05-13 07:30 | NUR ---
Received patient and a/ox3, pleasant female in bed, no resp distress, call light within reach, IV line running, will monitor.
--- NOTE | 2019-05-13 09:05 | NUR ---
Attending notified of Paliative recommendations
[2019-05-13] MEDS: SODIUM CHLORIDE 0.9% 1000ML 1,000 ML IV SCH (09:06)
[2019-05-13] MEDS: PIPERACILLIN/TAZO 2.25 GM 50 ML IV SCH ×2 (09:49→21:50)
--- NOTE | 2019-05-13 14:43 | NUR ---
Patient completed dialysis at this time for 4 hours, pulled 1L of fluid, patient stable, no distress.
[2019-05-13] MEDS: MORPHINE SULFATE 2 MG/ML SYR 1ML IV PRN (15:07)
[2019-05-13] MEDS: ONDANSETRON HCL INJ 2MG/ML 2ML 2 MG/ML VIAL IV PRN (15:07)
--- NOTE | 2019-05-13 18:10 | Progress Note ---
DATE: 05/13/2019 Cardiology Progress Note SUBJECTIVE: The patient denies chest pain or shortness of breath. She was seen during dialysis. OBJECTIVE: VITAL SIGNS: Temperature 98.2 degrees, pulse 81, respiratory rate 16, blood pressure 107/50, and oxygen saturation 94% on room air. GENERAL: Awake, alert, in no acute distress. LUNGS: Clear to auscultation bilaterally. No wheezes or crackles. CARDIOVASCULAR: Normal rate and regular rhythm. Systolic murmur 1/6. Normal S1 and S2. Device present in left chest. ABDOMEN: Soft and nontender. EXTREMITIES: No edema. CARDIAC MEDICATIONS: Levothyroxine 25 mcg p.o. daily. LABORATORY DATA: WBC 14.4, hemoglobin 10.3, hematocrit 31.3, and platelets 177. Sodium 132, potassium 4.2, chloride 99, CO2 is 17, BUN 70, and creatinine 4.06. Device interrogation revealed normal device function, 100% BiV paced, no episodes. Echocardiogram was reviewed. She continues to have systolic heart failure and appears compensated clinically. Repeat troponin is unremarkable. She may proceed with cholecystectomy without further cardiac evaluation. She will be at moderate risk for cardiovascular complications for intermediate risk surgery. Thank you for this consult. We will continue to follow. Marni Schmitt MD ABS/MODL /[id number]
--- NOTE | 2019-05-13 19:11 | NUR ---
Rounds completed, report given to on coming nurse, call light within reach, safety in place,
[2019-05-13] MEDS: INSULIN GLARGINE 100 UNITS/ML VIAL SQ SCH (21:00)
--- NOTE | 2019-05-13 21:45 | NUR ---
PATIENT RESTING IN BED, AOX3 NO SIGNS OF RESPIRATORY DISTRESS NOTED. IV FLUIDS ARE RUNNING AT ORDERED RATE AND PATIENT VOICES NO PAIN AT THIS TIME. PATIENT AWARE OF NPO ORDER WITH EXCEPTION OF ICE CHIPS AND GETTING READY FOR SHOWER. BED IN LOWEST POSITION, BOTH SIDE RAILS ARE UP, CALL LIGHT WITHIN EASY REACH, WILL CONTINUE TO MONITOR.
--- NOTE | 2019-05-13 23:51 | Consultation ---
DATE OF CONSULTATION: 05/13/2019 CHIEF COMPLAINT: Abdominal pain. HISTORY OF PRESENT ILLNESS: The patient is an 83-year-old female with 4-day history of pain of sudden onset in the right upper quadrant epigastric region with vomiting and diarrhea. She denies fever or chills. No prior episode of similar attack. PAST MEDICAL HISTORY: Positive for diabetes, hypertension, end-stage renal disease on dialysis, atrial fibrillation, coronary artery disease, and heart failure. PAST SURGICAL HISTORY: Positive for coronary artery bypass graft and AICD and left oophorectomy. SOCIAL HISTORY: The patient has no history of smoking or alcohol abuse. ALLERGIES: SHE HAS ALLERGIC REACTION TO CODEINE. REVIEW OF SYSTEMS: No chest pain or shortness of breath. PHYSICAL EXAMINATION: VITAL SIGNS: Stable. She is afebrile. GENERAL: She is awake, alert, in mild to moderate discomfort. HEENT: Sclerae anicteric. NECK: Supple. LUNGS: Clear. HEART: Regular rate and rhythm. ABDOMEN: Soft with mild guarding in the epigastric and right upper quadrant without rebound. EXTREMITIES: Without cyanosis or edema. LABORATORY DATA: White cell count 14,000 and hemoglobin 10. Creatinine 4 and lipase 99. Liver function tests; bilirubin 1.3 with alkaline phosphatase of 69. CT of the abdomen show evidence of inflammation around the head of pancreas and duodenum suggestive of pancreatitis. Ultrasound of the gallbladder showed gallstones. No thickened wall. ASSESSMENT: Gallstones and pancreatitis. PLAN: The patient is being evaluated by Nephrology and Cardiology. Recommend cholecystectomy once pancreatitis resolves. Julio Cesar Villatoro MD DNYen/MODL /[id number]
[2019-05-14] VITALS (7 sets, daily range): BP systolic 101–151; BP diastolic 44–66
--- NOTE | 2019-05-14 00:20 | NUR ---
DR. TORO HAS MADE ROUNDS WITH PATIENT. PATIENT AWARE OF POSSIBLE PROCEDURES THE FOLLOWING DAY.
[2019-05-14] MEDS: LEVOTHYROXINE SODIUM 25 MCG TABLET PO SCH (05:07)
[2019-05-14 05:47] LABS: BASOPHILS % 0.3 % (0.0-1.0); EOSINOPHILS # (AUTO) 0.2 (0.0-0.4); EOSINOPHILS % 1.3 % (0.0-6.0); HEMATOCRIT 31.3 % (34.2-44.1); HEMOGLOBIN 10.5 g/dL (12.0-16.0); LYMPHOCYTES % 7.5 % (18.0-39.1); MEAN CORPUSCULAR HEMOGLOBIN 30.9 pg (28-32); MEAN CORPUSCULAR HGB CONC 33.5 g/dL (31-35); MEAN CORPUSCULAR VOLUME 92.1 fL (81-99); MONOCYTES # (AUTO) 0.7 (0.2-0.8); MONOCYTES % 5.7 % (4.4-11.3); NEUTROPHILS # (AUTO) 10.8 (2.1-6.9); NEUTROPHILS % 84.7 % (38.7-80.0); PLATELET COUNT 230 x10e3/uL (140-360); RED CELL DISTRIBUTION WIDTH 13.7 % (11.7-14.4)
[2019-05-14] MEDS: SODIUM CHLORIDE 0.9% 1000ML 1,000 ML IV SCH ×2 (06:12→21:39)
[2019-05-14 06:17] LABS: ALBUMIN 2.8 g/dL (3.5-5.0); ANION GAP 23.1 mmol/L (8-16); CALCIUM 8.5 mg/dL (8.4-10.2); CREATININE, SERUM 3.12 mg/dL (0.57-1.11); POTASSIUM 4.1 mmol/L (3.5-5.1)
[2019-05-14 06:18] LABS: ALBUMIN/GLOBULIN RATIO 0.8 (0.8-2.0)
[2019-05-14] MEDS: INSULIN REGULAR, HUMAN 100 UNIT/1 ML 3ML VIAL SQ SCH ×4 (06:38→21:39)
--- NOTE | 2019-05-14 07:00 | NUR ---
Received bedside shift report from EULA Lopez. Patient awake at this time, denies pain with no visible signs of distress noted. Call light within reach.
--- NOTE | 2019-05-14 09:28 | NUR ---
CARDIAC CLEARANCE FOR SURGERY BY DR. HUGHES.
[2019-05-14] MEDS: PIPERACILLIN/TAZO 2.25 GM 50 ML IV SCH ×2 (09:59→21:39)
--- NOTE | 2019-05-14 13:24 | NUR ---
PT OFF THE FLOOR TO OR.
[2019-05-14] MEDS ORDERED: BUPIVACAINE 0.5%/EPI 30 ML SDV INJ ONE (13:49)
[2019-05-14] MEDS ORDERED: ROCURONIUM BROMIDE 10 MG/ML 5ML VIAL ONE (14:13)
[2019-05-14] MEDS ORDERED: ONDANSETRON HCL INJ 2MG/ML 2ML 2 MG/ML VIAL ONE (14:13)
[2019-05-14] MEDS ORDERED: EPHEDRINE SULFATE INJ 50 MG/ML VIAL ONE (14:13)
[2019-05-14] MEDS ORDERED: PROPOFOL IV EMULSION 10 MG/ML 20 ML VIAL ONE (14:13)
[2019-05-14] MEDS ORDERED: LIDOCAINE HCL 2% LOCAL INJ 5 ML SDV VIAL INJ ONE (14:13)
[2019-05-14] MEDS ORDERED: SEVOFLURANE INHAL SOLN 250 ML PEN BTL ONE (14:13)
[2019-05-14] MEDS ORDERED: DEXAMETHASONE SOD PHOS INJ 4 MG/ML VIAL ONE (14:13)
[2019-05-14] MEDS ORDERED: SUGAMMADEX SODIUM 200 MG/2 ML VIAL IV ONE (15:46)
[2019-05-14] MEDS: ONDANSETRON HCL INJ 2MG/ML 2ML 2 MG/ML VIAL IV PRN ×2 (17:29→21:39)
--- NOTE | 2019-05-14 19:08 | NUR ---
WALKING ROUNDS PERFORMED, RECEIVED PT LAYING SEMI FOWLERS IN BED, AAOX3, RR EVEN AND NON-LABORED, ON ROOM AIR. NO S/SX OF DISTRESS NOTED. X5 TROCAR SITES TO ANTERIOR ABD NOTED TO BE CDI. LEFT PT LAYING SEMI FOWLERS IN BED, BED IN LOW LOCKED POSITION, SIDE RAILS UPX2, CALL LIGHT AND PHONE WITHIN REACH.
[2019-05-14] MEDS ORDERED: FENTANYL CITRATE/PF 100MCG/2 ML INJ ONE (19:26)
[2019-05-14] MEDS: MORPHINE SULFATE 2 MG/ML SYR 1ML IV PRN (21:39)
[2019-05-14] MEDS: INSULIN GLARGINE 100 UNITS/ML VIAL SQ SCH (21:39)
--- NOTE | 2019-05-14 23:12 | Progress Note ---
DATE: 05/14/2019 Cardiology Progress Note SUBJECTIVE: The patient denies chest pain or shortness of breath. She had a laparoscopic cholecystectomy today and reports her abdomen is feeling better. OBJECTIVE: VITAL SIGNS: Temperature 99.5, pulse 90, respiratory rate 16, blood pressure 144/62, and oxygen saturation 92%. GENERAL: Awake and alert, in no acute distress. LUNGS: Clear to auscultation bilaterally. No wheezes or crackles. CARDIOVASCULAR: Normal rate, regular rhythm. Systolic murmur 1/6. Normal S1, S2. Device present in left chest. ABDOMEN: Soft and nontender. EXTREMITIES: No edema. CARDIAC MEDICATIONS: Levothyroxine 25 mcg p.o. daily. LABORATORY DATA: WBC 12.73, hemoglobin 10.5, hematocrit 31.3, and platelets 230. Sodium 138, potassium 4.1, chloride 99, CO2 of 20, BUN 39, and creatinine 3.12. ASSESSMENT: 1. Gallstone pancreatitis. 2. Coronary artery disease, status post bypass and stents. 3. Chronic systolic heart failure, status post AICD, appears compensated. 4. Hypertension. 5. Hyperlipidemia. 6. Diabetes mellitus. 7. Paroxysmal atrial fibrillation. 8. End-stage renal disease, on hemodialysis. PLAN: Continue current cardiac medications. Specifically, she needs to resume aspirin once agreeable from surgical standpoint. Continue atorvastatin, fenofibrate, and Entresto. Monitor volume status closely. Volume management per Nephrology due to end-stage renal disease, on hemodialysis. Thank you for this consult. We will continue to follow. Marni Schmitt MD ABS/MODL /[id number]
--- NOTE | 2019-05-14 23:22 | Operative Report ---
DATE OF PROCEDURE: 05/14/2019 SURGEON: Julio Cesar Villatoro MD PREOPERATIVE DIAGNOSIS: Cholecystitis. POSTOPERATIVE DIAGNOSIS: Cholecystitis. OPERATIVE PROCEDURE: Laparoscopic cholecystectomy. ANESTHESIA: General. INDICATION FOR SURGERY: An 83-year-old female with a history of abdominal pain and vomiting with gallstones seen on ultrasound of the gallbladder. The patient consented for laparoscopic cholecystectomy. All attendant risks discussed. PROCEDURE FINDINGS: Chronic cholecystitis with distended gallbladder and cystic duct. DESCRIPTION OF PROCEDURE: The patient was brought to the OR and intubated. The abdomen was prepped and draped in sterile fashion. The left upper quadrant direct port access was carried out with the laparoscope and insufflation then begun under direct vision. Other port sites placed in the supraumbilical and right upper quadrant. Gallbladder distended. Fundus retracted in cephalad direction. Next, the gallbladder retracted laterally with blunt and sharp dissection. We dissected the gallbladder from the fundus down towards the neck of the gallbladder and the cystic duct noted to be quite widened approximately 5-6 mm and the junction of common bile duct was noted before and endolooped the cystic duct with a 0 PDS stitch and the gallbladder is cut distal to the tie. The gallbladder was then taken out through the umbilical incision. Operative field was irrigated. Hemostasis achieved. All ports were removed under direct vision. Fascia closure with 0 Vicryl. Skin closed with subcuticular stitch. The patient was extubated and transported to recovery room. BLOOD LOSS: 10 mL. Julio Cesar Villatoro MD DNL/MODL /[id number]
[2019-05-15] VITALS (9 sets, daily range): BP systolic 115–138; BP diastolic 54–65
[2019-05-15] MEDS: MORPHINE SULFATE 2 MG/ML SYR 1ML IV PRN ×2 (05:20→15:27)
[2019-05-15] MEDS: ONDANSETRON HCL INJ 2MG/ML 2ML 2 MG/ML VIAL IV PRN (05:20)
[2019-05-15 05:33] LABS: BASOPHILS # (AUTO) 0.1 (0.0-0.1); BASOPHILS % 0.4 % (0.0-1.0); EOSINOPHILS # (AUTO) 0.2 (0.0-0.4); EOSINOPHILS % 1.3 % (0.0-6.0); HEMATOCRIT 35.3 % (34.2-44.1); HEMOGLOBIN 11.1 g/dL (12.0-16.0); LYMPHOCYTES % 7.6 % (18.0-39.1); MEAN CORPUSCULAR HGB CONC 31.4 g/dL (31-35); MEAN CORPUSCULAR VOLUME 95.4 fL (81-99); MONOCYTES % 7.1 % (4.4-11.3); NEUTROPHILS # (AUTO) 11.3 (2.1-6.9); NEUTROPHILS % 83.1 % (38.7-80.0); PLATELET COUNT 259 x10e3/uL (140-360); RED CELL DISTRIBUTION WIDTH 13.7 % (11.7-14.4)
[2019-05-15] MEDS: LEVOTHYROXINE SODIUM 25 MCG TABLET PO SCH (05:52)
[2019-05-15 05:55] LABS: ALBUMIN 2.9 g/dL (3.5-5.0); ALBUMIN/GLOBULIN RATIO 0.8 (0.8-2.0); ANION GAP 20.1 mmol/L (8-16); CALCIUM 8.7 mg/dL (8.4-10.2); CREATININE, SERUM 3.97 mg/dL (0.57-1.11); POTASSIUM 4.1 mmol/L (3.5-5.1)
--- NOTE | 2019-05-15 07:37 | NUR ---
Pt receive in bed. aox4 and able to verbalize needs. Denies any pain at this time. 0 s/s of acute distress noted.
[2019-05-15] MEDS: PAROXETINE HCL 20 MG TAB PO SCH (08:51)
[2019-05-15] MEDS: PIPERACILLIN/TAZO 2.25 GM 50 ML IV SCH ×2 (08:51→21:56)
[2019-05-15] MEDS: INSULIN REGULAR, HUMAN 100 UNIT/1 ML 3ML VIAL SQ SCH ×4 (09:11→21:59)
[2019-05-15] MEDS ORDERED: SODIUM CHLORIDE 0.9% 1000ML 2,000 ML ONE (09:54)
[2019-05-15] MEDS: VALSARTAN/SACUBITRIL 24MG/26MG 1 EA TAB PO SCH ×2 (10:15→16:57)
[2019-05-15] MEDS ORDERED: SODIUM CHLORIDE 0.9% 1000ML 2,000 ML IV PRN (12:15)
--- NOTE | 2019-05-15 12:53 | Progress Note ---
DATE: 05/15/2019 Cardiology Progress Note SUBJECTIVE: The patient endorses some pain in her abdomen on the right upper quadrant. Denies any chest pain or shortness of breath. OBJECTIVE: VITAL SIGNS: Temperature 98.6, pulse 91, respiratory rate 16, blood pressure 138/60, and oxygen saturation 92% on room air. GENERAL: Alert and oriented x3, resting in bed, does not appear to be in acute distress. NECK: Supple. LUNGS: Clear to auscultation throughout. No wheezing. No rhonchi or crackles. CARDIOVASCULAR: Regular rate and rhythm. Normal S1, S2. Device in her left upper chest. ABDOMEN: Soft, tender to the right upper quadrant. EXTREMITIES: No edema, 2+ pedal pulses. CARDIOVASCULAR MEDICATIONS: None at this time. LABORATORY DATA: WBC 13.60, hemoglobin 11.1, hematocrit 35.3, and platelets 259. Sodium 140, potassium 4.1, BUN 55, and creatinine 3.97. ASSESSMENT: 1. Gallstone pancreatitis. 2. Coronary artery disease, status post bypass and stent. 3. Chronic systolic heart failure, status post AICD. 4. Hypertension. 5. Hyperlipidemia. 6. Diabetes mellitus. 7. Paroxysmal atrial fibrillation. 8. End-stage renal disease, currently on dialysis. PLAN: Resume home medications. Consider resumption of aspirin if agreeable from surgical standpoint. Monitor volume status. Maintain on telemetry at all time. Dictated by Marlene Ramon NP MD ELIU AdamsV/ALEXANDRE /[id number]
[2019-05-15] MEDS: FENOFIBRATE 145 MG TAB PO SCH (16:57)
[2019-05-15] MEDS: SODIUM CHLORIDE 0.9% 1000ML 1,000 ML IV SCH (18:08)
--- NOTE | 2019-05-15 19:03 | NUR ---
WALKING ROUNDS PERFORMED, RECEIVED PT AMBULATING WITH ASSISTANCE FROM EXECUTIVE LEGAL SECRETARY TO GO TO THE BATHROOM. NO S/SX OF DISTRESS NOTED. RR EVEN AND NON-LABORED, ON ROOM AIR. LEFT PT AMBULATING TO BATHROOM WITH ROLLING WALKER AND EXECUTIVE LEGAL SECRETARY AT SIDE.
[2019-05-15] MEDS ORDERED: ATORVASTATIN 10 MG TAB PO SCH (21:00)
[2019-05-15] MEDS: INSULIN GLARGINE 100 UNITS/ML VIAL SQ SCH (21:58)
[2019-05-16 04:34] VITALS: BP 107/53
[2019-05-16] MEDS: LEVOTHYROXINE SODIUM 25 MCG TABLET PO SCH (06:23)
[2019-05-16 06:34] LABS: BASOPHILS # (AUTO) 0.1 (0.0-0.1); BASOPHILS % 0.4 % (0.0-1.0); EOSINOPHILS # (AUTO) 0.3 (0.0-0.4); EOSINOPHILS % 2.2 % (0.0-6.0); HEMATOCRIT 35.1 % (34.2-44.1); HEMOGLOBIN 11.3 g/dL (12.0-16.0); LYMPHOCYTES # (AUTO) 1.3 (1.0-3.2); LYMPHOCYTES % 10.3 % (18.0-39.1); MEAN CORPUSCULAR HEMOGLOBIN 30.1 pg (28-32); MEAN CORPUSCULAR HGB CONC 32.2 g/dL (31-35); MEAN CORPUSCULAR VOLUME 93.4 fL (81-99); MONOCYTES # (AUTO) 0.9 (0.2-0.8); MONOCYTES % 6.9 % (4.4-11.3); NEUTROPHILS # (AUTO) 10.2 (2.1-6.9); NEUTROPHILS % 79.5 % (38.7-80.0); PLATELET COUNT 267 x10e3/uL (140-360); RED BLOOD COUNT 3.76 x10e6/uL (3.6-5.1); RED CELL DISTRIBUTION WIDTH 13.9 % (11.7-14.4)
[2019-05-16 07:05] LABS: ANION GAP 17.6 mmol/L (8-16); CALCIUM 8.7 mg/dL (8.4-10.2); CREATININE, SERUM 3.08 mg/dL (0.57-1.11); POTASSIUM 3.6 mmol/L (3.5-5.1)
[2019-05-16] MEDS: INSULIN REGULAR, HUMAN 100 UNIT/1 ML 3ML VIAL SQ SCH ×2 (07:30→13:47)
--- NOTE | 2019-05-16 07:47 | NUR ---
Pt received in bed with eyes open. Aox4 and able to verbalize needs. Denies any pain at this time. 0 s/s of acute distress noted.
[2019-05-16 08:28] VITALS: BP 112/46
[2019-05-16 08:29] VITALS: BP 112/46
[2019-05-16] MEDS: PAROXETINE HCL 20 MG TAB PO SCH (08:32)
[2019-05-16] MEDS: PIPERACILLIN/TAZO 2.25 GM 50 ML IV SCH (08:32)
[2019-05-16] MEDS: FENOFIBRATE 145 MG TAB PO SCH (08:32)
[2019-05-16] MEDS: MORPHINE SULFATE 2 MG/ML SYR 1ML IV PRN (08:42)
[2019-05-16] MEDS: VALSARTAN/SACUBITRIL 24MG/26MG 1 EA TAB PO SCH (09:00)
[2019-05-16] MEDS ORDERED: FUROSEMIDE 40 MG TAB PO SCH (09:00)
[2019-05-16 12:25] VITALS: BP 112/53
--- NOTE | 2019-05-16 15:15 | NUR ---
Visit made by the Spiritual Care Department Pastoral Visitor, Dipak Mcmahon. PV provided pastoral presence, hospitality, and supportive listening. Pastoral Visitor informed pt/family of the scope of [facility] and availability. [facility] Department O: [phone] Pager: [phone] ([phone] calling from)
--- NOTE | 2019-05-16 15:18 | Progress Note ---
DATE: 05/16/2019 Cardiology Progress Note SUBJECTIVE: The patient is without any new complaints this morning. However, she continues to experience pain in her right upper quadrant. Denies any chest pain or shortness of breath. OBJECTIVE: VITAL SIGNS: Temperature 98.6, pulse 79, respiratory rate 16, blood pressure 112/46, oxygen saturation 96% on room air. GENERAL: Alert and oriented x3. Resting comfortably in bed, does not appear to be in acute distress. at the bedside. NECK: Supple. No JVD noted. LUNGS: Clear to auscultation throughout. No wheezing. No rhonchi or crackles. CARDIOVASCULAR: Regular rate and rhythm. Normal S1, S2. Device in the left upper chest area. ABDOMEN: Soft, however, tender to the right upper quadrant. LOWER EXTREMITIES: No edema. 2+ pedal pulses. CARDIOVASCULAR MEDICATIONS: Entresto one tablet p.o. b.i.d., Lasix 40 mg p.o. daily, fenofibrate 145 mg p.o. daily, atorvastatin 10 mg p.o. at bedtime. LABORATORY DATA: WBC 12.80, hemoglobin 11.3, hematocrit 35.1, platelets 267. Sodium 138, potassium 3.6, BUN 30, creatinine 3.08. ASSESSMENT: 1. Gallstone pancreatitis. 2. Coronary artery disease, status post bypass and stenting. 3. Chronic systolic heart failure, status post automatic implantable cardioverter defibrillator. 4. Hypertension. 5. Hyperlipidemia. 6. Diabetes mellitus. 7. Paroxysmal atrial fibrillation. 8. End-stage renal disease, on hemodialysis. PLAN: Continue the above-listed cardiac medication. Aspirin on hold at this time until agreeable from surgical standpoint. We will continue to monitor this patient very closely. Maintain on telemetry at all times. Dictated by Marlene Ramon NP MD ORI Adams/ALEXANDRE /[id number]
--- NOTE | 2019-05-17 05:06 | Discharge Summary ---
FINAL DISCHARGE DIAGNOSES: 1. Status post laparoscopic cholecystectomy. 2. Gallstone pancreatitis-resolved. 3. End-stage renal disease, on hemodialysis. 4. History of congestive heart failure. 5. Liver cirrhosis. Needs outpatient followup with GI. 6. History of coronary artery disease with AICD. CONSULTANTS: Cardiology, GI, Nephrology, and General Surgery. VITAL SIGNS: Temperature is 98.4, pulse is 83, respiratory rate is 17, blood pressure 112/53, and pulse ox 95% on room air. LABORATORY DATA: Labs show white count was 12, hemoglobin 11, hematocrit 35, platelets of 267. Chemistry; sodium 138, potassium 3.6, chloride 99, bicarb 25, anion gap of 17, BUN 30, creatinine is 3, glucose is 113, hemoglobin A1c is 6.4, total bilirubin is 0.8, AST is 26, and ALT is 21. On admission, LFTs were elevated. Lipase level on admission was 1104, downtrended to 39 on discharge. LDL was 36. Troponins were all negative. Hepatitis panel was negative. MICROBIOLOGY: Blood cultures were found to be negative. CT of the abdomen and pelvis shows stranding adjacent to the pancreatic head and duodenum may reflect pancreatitis versus duodenitis. Colonic diverticulosis without evidence of inflammation. Abdominal ultrasound shows a lobulated hepatic contour of the liver suggestive of micronodular cirrhosis. No evidence of portal hypertension. No hepatic mass. Cholelithiasis, no sonographic evidence of acute cholecystitis. No biliary dilatation. Atrophic kidneys likely represent chronic renal medical disease. HOSPITAL COURSE: An 83-year-old female comes into the emergency room with underlying complaints of abdominal pain, found to have elevated LFTs and lipase levels needing further evaluation and management. GI and General surgery were consulted. The patient was found to have gallstone pancreatitis. Cardiology was consulted for cardiac clearance. Cardiology evaluated the patient, cleared the patient for surgery. The patient underwent status post laparoscopic cholecystectomy by General Surgery. Postoperatively, the patient did very well with no complaints. No further workup needed by GI. The patient was on a clear liquid diet, advanced to renal diet prior to being discharged to home. Nephrology was consulted for HD management, which was performed several times while here in the hospital stay. The patient was cleared for discharge by all consultants including Cardiology, GI, Nephrology, and General Surgery. On the day of discharge, vital signs were stable, labs reviewed and stable. The patient was seen, evaluated, examined thoroughly on the day of discharge. No other complaints. The patient verbalized understanding and agrees to plan of care to follow up accordingly as an outpatient with primary care physician in 1 week, General Surgery in 1 to 2 weeks' time. Neurosurgery consult as described above in about 2 weeks' time. She is advised to follow up with her normal hemodialysis chart time is scheduled. MEDICATIONS: See med reconciliation form. DISPOSITION: Home. CONDITION: Stable. DIET: Heart healthy. In the event of any worsening symptoms, the patient was advised to come back to the ED for further evaluation. Discharge summary took greater than 35 minutes. MD JYOTI Bass/ALEXANDRE /[id number]
== END 2019-05-16 15:40 | disposition home or self-care (01) | DRG 417 ==
LOC: ER 16:40 → ERHOLD 22:21 → MED/SURG 05-12 02:19
PROVIDERS: ADMIT Internal Medicine; ATTEND Internal Medicine
PROC: 5A1D70Z Performance of Urinary Filtration, Intermittent, Less than 6 Hours Per Day (ICD-10-PCS; 2019-05-13)
PROC: 0FT44ZZ Resection of Gallbladder, Percutaneous Endoscopic Approach (ICD-10-PCS; principal; 2019-05-14 14:00)
DX: K85.10 Biliary acute pancreatitis without necrosis or infection (principal); N18.6 End stage renal disease; I13.2 Hypertensive heart and chronic kidney disease with heart failure and with stage 5 chronic kidney disease, or end stage renal disease; I50.22 Chronic systolic (congestive) heart failure; N25.81 Secondary hyperparathyroidism of renal origin; E11.22 Type 2 diabetes mellitus with diabetic chronic kidney disease; Z99.2 Dependence on renal dialysis; Z79.4 Long term (current) use of insulin; I25.10 Atherosclerotic heart disease of native coronary artery without angina pectoris; E11.40 Type 2 diabetes mellitus with diabetic neuropathy, unspecified; Z95.5 Presence of coronary angioplasty implant and graft; K80.20 Calculus of gallbladder without cholecystitis without obstruction; Z95.1 Presence of aortocoronary bypass graft; K29.80 Duodenitis without bleeding; K57.90 Diverticulosis of intestine, part unspecified, without perforation or abscess without bleeding; I48.0 Paroxysmal atrial fibrillation; K74.60 Unspecified cirrhosis of liver
CPT/HCPCS: 36415; 74176; 76700; 80048; 80053; 80061; 82150; 82550; 82553; 82948; 83036; 83690; 84484; 85025; 86039; 86225; 87040; 88304; 93005; 93306; 99284; J1100; J1815; J1817; J2001; J2270; J2405; J2543; J3010; J7030

== ENCOUNTER → 2019-05-28 | Outpatient (CLI) | payer MEDICARE ==
[~2019-05-28] MED LIST changes: +ENTRESTO 24 MG1 EACH PO; +HUMALOG100 UNIT/3 SQ; +PAXIL10 MG PO
[2019-05-28 11:57] LABS: BASOPHILS # (AUTO) 0.1 (0.0-0.1); EOSINOPHILS # (AUTO) 0.3 (0.0-0.4); HEMATOCRIT 32.9 % (34.2-44.1); HEMOGLOBIN 10.3 g/dL (12.0-16.0); LYMPHOCYTES # (AUTO) 1.1 (1.0-3.2); LYMPHOCYTES % 11.9 % (18.0-39.1); MEAN CORPUSCULAR HEMOGLOBIN 29.9 pg (28-32); MEAN CORPUSCULAR HGB CONC 31.3 g/dL (31-35); MEAN CORPUSCULAR VOLUME 95.6 fL (81-99); MONOCYTES # (AUTO) 0.4 (0.2-0.8); MONOCYTES % 4.4 % (4.4-11.3); NEUTROPHILS # (AUTO) 7.4 (2.1-6.9); NEUTROPHILS % 79.5 % (38.7-80.0); PLATELET COUNT 272 x10e3/uL (140-360); RED BLOOD COUNT 3.44 x10e6/uL (3.6-5.1); RED CELL DISTRIBUTION WIDTH 14.4 % (11.7-14.4)
[2019-05-28 12:21] LABS: ALBUMIN 3.4 g/dL (3.5-5.0); ANION GAP 15.6 mmol/L (8-16); CALCIUM 8.7 mg/dL (8.4-10.2); CREATININE, SERUM 2.72 mg/dL (0.57-1.11); POTASSIUM 4.6 mmol/L (3.5-5.1)
== END ==
LOC: LAB 11:10
PROVIDERS: ATTEND Surgery
DX: Z90.49 Acquired absence of other specified parts of digestive tract (principal)
CPT/HCPCS: 36415; 80053; 85025

== ENCOUNTER → 2019-10-01 | Outpatient (CLI) | payer MEDICARE ==
[~2019-10-01] MED LIST changes: +REGADENOSON 0.4 MG/5 ML SYR IV ONE
--- NOTE | 2019-10-01 22:31 | Myoview Stress Test ---
DATE OF STUDY: 10/01/2019 08:53:00 Stress Test - Treadmill ONLY PROCEDURE TITLE: Rest stress single isotope SPECT imaging with pharmacologic stress and gated SPECT imaging. INDICATION: Chest pain. PROCEDURE IN DETAIL: Pharmacologic stress testing was performed with regadenoson per the usual protocol. Heart rate at baseline was 82 beats per minute. Heart rate at peak pharmacologic effect was 84 beats per minute. Baseline blood pressure is 128/59 and shai to 131/53 at peak stress. This is normal for regadenoson. 12-lead electrocardiogram showed normal sinus rhythm with a ventricular paced QRS complex. There was no cardiac arrhythmias noted throughout the stress protocol or recovery. Myocardial perfusion imaging was performed at rest following injection of 10.9 millicuries of tetrofosmin. At peak pharmacologic effect, the patient was injected with 32.1 millicuries of tetrofosmin. Gated post-stress tomographic imaging was performed. FINDINGS: The overall study quality was fair. Left ventricular cavity appears to be dilated at both rest and stress. SPECT images revealed a large area of severe fixed perfusion defect in the inferior wall. In addition, the patient has a medium size area of moderate to severe fixed perfusion defect. Also patient has an area of severe fixed defect of the apex. Gated SPECT imaging reveals reduced myocardial thickening and severe hypokinesis of the inferior and inferolateral siddiqui. Left ventricular ejection fraction was calculated to be 35%. IMPRESSION: Myocardial perfusion imaging is abnormal. There is a large area of inferior transmural scar. The lateral and apical siddiqui also show severe nontransmural scar. There does not appear to be any evidence of reversible ischemia. The overall left ventricular ejection fraction was moderate to severely decreased with the above-mentioned wall motion abnormalities. Calculated left ventricular ejection fraction was 35%. DO MIRIAN Brooke/MODL /[id number]
== END ==
LOC: NM 08:35
PROVIDERS: ATTEND Internal Medicine
DX: R07.9 Chest pain, unspecified (principal)
CPT/HCPCS: 78452; 93017; A9502; J2785

== ENCOUNTER 2020-05-09 11:16 | Inpatient (IN) | payer MEDICARE ==
[~2020-05-09] VITALS: Ht 157.5 cm; Wt 63.5 kg
[~2020-05-09 11:16] MED LIST changes: -REGADENOSON 0.4 MG/5 ML SYR IV ONE
[2020-05-09] MEDS ORDERED: MORPHINE SULFATE INJ 2 MG/ML SYR IV STA ×2 (11:53→15:01)
[2020-05-09] MEDS ORDERED: ONDANSETRON HCL INJ 2MG/ML 2ML 2 MG/ML VIAL IV STA (11:53)
[2020-05-09 12:04] LABS: BASOPHILS # (AUTO) 0.1 (0.0-0.1); BASOPHILS % 0.4 % (0.0-1.0); EOSINOPHILS % 0.2 % (0.0-6.0); HEMATOCRIT 33.3 % (34.2-44.1); HEMOGLOBIN 10.8 g/dL (12.0-16.0); LYMPHOCYTES # (AUTO) 0.8 (1.0-3.2); MEAN CORPUSCULAR HGB CONC 32.4 g/dL (31-35); MEAN CORPUSCULAR VOLUME 95.7 fL (81-99); MONOCYTES # (AUTO) 0.5 (0.2-0.8); MONOCYTES % 4.7 % (4.4-11.3); NEUTROPHILS # (AUTO) 9.8 (2.1-6.9); NEUTROPHILS % 87.3 % (38.7-80.0); PLATELET COUNT 289 x10e3/uL (140-360); RED BLOOD COUNT 3.48 x10e6/uL (3.6-5.1); RED CELL DISTRIBUTION WIDTH 14.7 % (11.7-14.4)
[2020-05-09 12:08] LABS: INR 1.24; PARTIAL THROMBOPLASTIN TIME 39.2 seconds (23.8-35.5); PROTHROMBIN TIME 16.4 seconds (11.9-14.5)
[2020-05-09 12:15] LABS: ALBUMIN 3.4 g/dL (3.5-5.0); ANION GAP 20.3 mmol/L (8-16); CALCIUM 8.5 mg/dL (8.4-10.2); CREATININE, SERUM 3.61 mg/dL (0.57-1.11); POTASSIUM 3.3 mmol/L (3.5-5.1)
[2020-05-09 12:22] LABS: CREATINE KINASE MB 1.4 ng/mL (0-5.0)
[2020-05-09] MEDS ORDERED: ONDANSETRON HCL INJ 2MG/ML 2ML 2 MG/ML VIAL IV PRN (15:00)
[2020-05-09] MEDS ORDERED: MORPHINE SULFATE INJ 2 MG/ML SYR IV PRN (15:00)
[2020-05-09 16:02] VITALS: BP 115/56
[2020-05-09 16:34] VITALS: BP 115/56
[2020-05-09 21:21] VITALS: BP 125/53
[2020-05-09 21:29] VITALS: BP 125/53
[2020-05-09] MEDS ORDERED: TRAZODONE HCL 50 MG TAB PO PRN (22:30)
[2020-05-09] MEDS ORDERED: ACETAMINOPHEN 325 MG TAB PO PRN (22:30)
[2020-05-09] MEDS ORDERED: DEXTROSE 50% SYRINGE 50 ML IV PRN (22:30)
[2020-05-09 22:37] LABS: CREATINE KINASE MB 1.4 ng/mL (0-5.0)
[2020-05-09] MEDS: INSULIN GLARGINE 100 UNITS/ML VIAL SQ SCH (22:46)
[2020-05-10] VITALS (9 sets, daily range): BP systolic 99–108; BP diastolic 42–58
[2020-05-10 06:26] LABS: BASOPHILS % 0.4 % (0.0-1.0); EOSINOPHILS # (AUTO) 0.2 (0.0-0.4); EOSINOPHILS % 2.1 % (0.0-6.0); HEMATOCRIT 27.9 % (34.2-44.1); HEMOGLOBIN 9.1 g/dL (12.0-16.0); LYMPHOCYTES # (AUTO) 1.1 (1.0-3.2); LYMPHOCYTES % 10.9 % (18.0-39.1); MEAN CORPUSCULAR HEMOGLOBIN 31.5 pg (28-32); MEAN CORPUSCULAR HGB CONC 32.6 g/dL (31-35); MEAN CORPUSCULAR VOLUME 96.5 fL (81-99); MONOCYTES # (AUTO) 0.9 (0.2-0.8); MONOCYTES % 8.8 % (4.4-11.3); NEUTROPHILS % 77.4 % (38.7-80.0); PLATELET COUNT 232 x10e3/uL (140-360); RED BLOOD COUNT 2.89 x10e6/uL (3.6-5.1); RED CELL DISTRIBUTION WIDTH 14.6 % (11.7-14.4)
[2020-05-10 07:03] LABS: ALBUMIN 2.8 g/dL (3.5-5.0); ANION GAP 15.5 mmol/L (8-16); CREATININE, SERUM 3.86 mg/dL (0.57-1.11); POTASSIUM 3.5 mmol/L (3.5-5.1)
[2020-05-10 07:29] LABS: CREATINE KINASE MB 1.2 ng/mL (0-5.0)
[2020-05-10] MEDS: INSULIN LISPRO 100 UNIT/1 ML 3ML VIAL SQ SCH ×7 (07:30→19:53)
[2020-05-10] MEDS ORDERED: SODIUM CHLORIDE 0.9% 1000ML 1,000 ML ONE (08:13)
[2020-05-10] MEDS: FUROSEMIDE 40 MG TAB PO SCH ×2 (09:00→16:34)
[2020-05-10] MEDS: VALSARTAN/SACUBITRIL 24MG/26MG 1 EA TAB PO SCH ×2 (09:00→16:34)
[2020-05-10] MEDS: METOLAZONE 5 MG TAB PO SCH (09:00)
[2020-05-10] MEDS ORDERED: NON-FORMULARY MEDICATION (Fenofibrate,Micronized (Fenofibrate) 134 MG) PO SCH (09:00)
[2020-05-10] MEDS: LEVOTHYROXINE SODIUM 50 MCG TAB PO SCH (09:28)
[2020-05-10] MEDS: FENOFIBRATE 145 MG TAB PO SCH (09:28)
[2020-05-10] MEDS: PAROXETINE HCL 20 MG TAB PO SCH (09:29)
[2020-05-10] MEDS ORDERED: CEFAZOLIN SOD 2 GM/D5W 50ML 50 ML IV PRN (10:30)
[2020-05-10] MEDS ORDERED: CEFAZOLIN SOD 1 GM VIAL ONE (12:40)
[2020-05-10] MEDS ORDERED: PHENYLEPHRINE HCL 1% 10 MG/ML VIAL ONE (12:40)
[2020-05-10] MEDS: HYDROCODONE/APAP 5MG-325MG TAB PO PRN (14:49)
[2020-05-10] MEDS: INSULIN GLARGINE 100 UNITS/ML VIAL SQ SCH (19:52)
[2020-05-10] MEDS: ATORVASTATIN 10 MG TAB PO SCH (20:04)
[2020-05-11] VITALS: BP 101/42
[2020-05-11 04:00] VITALS: BP 104/46
[2020-05-11] MEDS ORDERED: CEFAZOLIN SOD 1 GM VIAL IV ONE (07:00)
[2020-05-11] MEDS: INSULIN LISPRO 100 UNIT/1 ML 3ML VIAL SQ SCH ×7 (07:30→21:00)
[2020-05-11] MEDS ORDERED: SODIUM CHLORIDE 0.9% 100 ML ONE (07:45)
[2020-05-11] MEDS ORDERED: BUPIVACAINE 7.5MG/ML /DEXTROSE 82.5MG/ML 2 ML AMP INJ ONE (07:45)
[2020-05-11] MEDS ORDERED: ACETAMINOPHEN 650 MG SUPP PR PRN (08:30)
[2020-05-11] MEDS ORDERED: DOCUSATE SODIUM 100 MG CAP PO PRN (08:30)
[2020-05-11] MEDS ORDERED: HYDROCODONE/APAP 5MG-325MG TAB PO PRN (08:30)
[2020-05-11] MEDS ORDERED: ONDANSETRON HCL INJ 2MG/ML 2ML 2 MG/ML VIAL IV PRN (08:30)
[2020-05-11] MEDS ORDERED: SODIUM CHLORIDE 0.9% 1000ML 1,000 ML IV SCH (08:30)
[2020-05-11] MEDS ORDERED: DIPHENHYDRAMINE HCL INJ 50 MG/ML VIAL IV PRN (08:30)
[2020-05-11] MEDS: FUROSEMIDE 40 MG TAB PO SCH ×2 (09:00→16:01)
[2020-05-11] MEDS: VALSARTAN/SACUBITRIL 24MG/26MG 1 EA TAB PO SCH (09:00)
[2020-05-11 09:50] VITALS: BP 111/95
[2020-05-11] MEDS: METOLAZONE 5 MG TAB PO SCH (10:32)
[2020-05-11] MEDS: LEVOTHYROXINE SODIUM 50 MCG TAB PO SCH (10:32)
[2020-05-11] MEDS: PAROXETINE HCL 20 MG TAB PO SCH (10:32)
[2020-05-11] MEDS: FENOFIBRATE 145 MG TAB PO SCH (10:32)
[2020-05-11] MEDS ORDERED: ACETAMINOPHEN 1000 MG/100 ML IV PRN (12:00)
[2020-05-11 12:05] LABS: ALBUMIN/GLOBULIN RATIO 0.9 (0.8-2.0); CREATININE, SERUM 3.22 mg/dL (0.57-1.11)
[2020-05-11] MEDS: HYDROCODONE/APAP 5MG-325MG TAB PO PRN (15:24)
[2020-05-11] MEDS: CEFAZOLIN SOD 1 GM/NS 50ML 50 ML IV SCH (15:29)
[2020-05-11 15:32] VITALS: BP 106/58
[2020-05-11 20:00] VITALS: BP 100/44
[2020-05-11 20:05] VITALS: BP_SYST 100; BP_SYST 151; BP_DIAS 44; BP_DIAS 82
[2020-05-11] MEDS: INSULIN GLARGINE 100 UNITS/ML VIAL SQ SCH (21:00)
[2020-05-11] MEDS: ATORVASTATIN 10 MG TAB PO SCH (21:37)
[2020-05-12] VITALS (10 sets, daily range): BP systolic 90–108; BP diastolic 40–52
[2020-05-12] MEDS: CEFAZOLIN SOD 1 GM/NS 50ML 50 ML IV SCH ×3 (00:30→13:25)
[2020-05-12 05:32] LABS: HEMATOCRIT 24.6 % (34.2-44.1); MEAN CORPUSCULAR HEMOGLOBIN 32.3 pg (28-32); MEAN CORPUSCULAR HGB CONC 32.5 g/dL (31-35); MEAN CORPUSCULAR VOLUME 99.2 fL (81-99); PLATELET COUNT 202 x10e3/uL (140-360); RED BLOOD COUNT 2.48 x10e6/uL (3.6-5.1); RED CELL DISTRIBUTION WIDTH 14.5 % (11.7-14.4)
[2020-05-12 05:56] LABS: ALBUMIN 2.8 g/dL (3.5-5.0); ALBUMIN/GLOBULIN RATIO 0.9 (0.8-2.0); ANION GAP 16.2 mmol/L (8-16); CALCIUM 7.8 mg/dL (8.4-10.2); CREATININE, SERUM 3.93 mg/dL (0.57-1.11); POTASSIUM 4.2 mmol/L (3.5-5.1)
[2020-05-12] MEDS: INSULIN LISPRO 100 UNIT/1 ML 3ML VIAL SQ SCH ×7 (07:30→21:00)
[2020-05-12 07:50] LABS: EOSINOPHILS % (MANUAL) 1 % (0-7); LYMPHOCYTES % (MANUAL) 13 % (19-48); MONOCYTES % (MANUAL) 6 % (3.4-9.0); NEUTROPHILS % (MANUAL) 80 % (40-74)
[2020-05-12 07:52] LABS: PLATELET ESTIMATE ADEQUATE; PLATELET MORPHOLOGY COMMENT NORMAL; RBC MORPHOLOGY COMMENT NORMAL
[2020-05-12] MEDS: LEVOTHYROXINE SODIUM 50 MCG TAB PO SCH (08:00)
[2020-05-12] MEDS: PAROXETINE HCL 20 MG TAB PO SCH (08:00)
[2020-05-12] MEDS ORDERED: SODIUM CHLORIDE 0.9% 1000ML 2,000 ML ONE (08:44)
[2020-05-12] MEDS ORDERED: SODIUM CHLORIDE 0.9% 1000ML 2,000 ML IV PRN (11:15)
[2020-05-12] MEDS ORDERED: ALBUMIN 25% 12.5GM 0.25 GM/ML BTL IV PRN (11:15)
[2020-05-12] MEDS ORDERED: SODIUM CHLORIDE 0.9% 50ML 50 ML ONE (13:27)
[2020-05-12] MEDS: INSULIN GLARGINE 100 UNITS/ML VIAL SQ SCH (21:00)
[2020-05-12] MEDS: ATORVASTATIN 10 MG TAB PO SCH (21:00)
[2020-05-13] VITALS (8 sets, daily range): BP systolic 75–110; BP diastolic 36–53
[2020-05-13] MEDS: LEVOTHYROXINE SODIUM 25 MCG TABLET PO SCH (05:35)
[2020-05-13] MEDS: INSULIN LISPRO 100 UNIT/1 ML 3ML VIAL SQ SCH ×7 (07:30→21:00)
[2020-05-13] MEDS: MIDODRINE 2.5 MG TAB PO SCH ×3 (09:00→18:28)
[2020-05-13] MEDS: PAROXETINE HCL 20 MG TAB PO SCH (09:00)
[2020-05-13] MEDS ORDERED: SODIUM CHLORIDE 0.9% 250ML 250 ML IV ONE (09:30)
[2020-05-13] MEDS ORDERED: EPOETIN ALFA-EPBX 10,000 UNIT/ML VIAL SC SCH (13:00)
[2020-05-13] MEDS ORDERED: SODIUM CHLORIDE 0.9% 250ML 250 ML ONE (17:41)
[2020-05-13] MEDS: INSULIN GLARGINE 100 UNITS/ML VIAL SQ SCH (21:00)
[2020-05-13] MEDS: ATORVASTATIN 10 MG TAB PO SCH (22:02)
[2020-05-14] VITALS (9 sets, daily range): BP systolic 99–124; BP diastolic 48–67
[2020-05-14] MEDS: LEVOTHYROXINE SODIUM 25 MCG TABLET PO SCH (06:01)
[2020-05-14 06:21] LABS: HEMATOCRIT 32.6 % (34.2-44.1); HEMOGLOBIN 10.6 g/dL (12.0-16.0)
[2020-05-14] MEDS: INSULIN LISPRO 100 UNIT/1 ML 3ML VIAL SQ SCH ×7 (07:30→20:51)
[2020-05-14] MEDS: MIDODRINE 2.5 MG TAB PO SCH ×3 (09:41→16:58)
[2020-05-14] MEDS: PAROXETINE HCL 20 MG TAB PO SCH (09:45)
[2020-05-14] MEDS: INSULIN GLARGINE 100 UNITS/ML VIAL SQ SCH (20:54)
[2020-05-14] MEDS: ATORVASTATIN 10 MG TAB PO SCH (21:00)
[2020-05-15] VITALS (10 sets, daily range): BP systolic 106–128; BP diastolic 50–55
[2020-05-15] MEDS: LEVOTHYROXINE SODIUM 25 MCG TABLET PO SCH (05:09)
[2020-05-15] MEDS: HYDROCODONE/APAP 5MG-325MG TAB PO PRN ×2 (05:36→17:28)
[2020-05-15] MEDS: INSULIN LISPRO 100 UNIT/1 ML 3ML VIAL SQ SCH ×6 (07:30→17:00)
[2020-05-15] MEDS: PAROXETINE HCL 20 MG TAB PO SCH (09:18)
[2020-05-15] MEDS: MIDODRINE 2.5 MG TAB PO SCH ×3 (09:18→17:27)
[2020-05-15] MEDS ORDERED: SODIUM CHLORIDE 0.9% 1000ML 2,000 ML ONE (09:19)
== END 2020-05-15 19:36 | DRG 480 ==
LOC: ER 11:22 → ERHOLD 15:13 → MED/SURG2 15:34
PROVIDERS: ADMIT Internal Medicine; ATTEND Internal Medicine
PROC: 0QS704Z Reposition Left Upper Femur with Internal Fixation Device, Open Approach (ICD-10-PCS; principal; 2020-05-09)
PROC: 5A1D70Z Performance of Urinary Filtration, Intermittent, Less than 6 Hours Per Day (ICD-10-PCS; 2020-05-10)
PROC: 30243N1 Transfusion of Nonautologous Red Blood Cells into Central Vein, Percutaneous Approach (ICD-10-PCS; 2020-05-13)
DX: S72.142A Displaced intertrochanteric fracture of left femur, initial encounter for closed fracture (principal); N18.6 End stage renal disease; I50.23 Acute on chronic systolic (congestive) heart failure; S42.212A Unspecified displaced fracture of surgical neck of left humerus, initial encounter for closed fracture; I13.2 Hypertensive heart and chronic kidney disease with heart failure and with stage 5 chronic kidney disease, or end stage renal disease; I42.9 Cardiomyopathy, unspecified; Z95.810 Presence of automatic (implantable) cardiac defibrillator; E11.22 Type 2 diabetes mellitus with diabetic chronic kidney disease; Z99.2 Dependence on renal dialysis; Z79.899 Other long term (current) drug therapy; K74.60 Unspecified cirrhosis of liver; Z20.822 Contact with and (suspected) exposure to COVID-19; I25.10 Atherosclerotic heart disease of native coronary artery without angina pectoris; Z95.1 Presence of aortocoronary bypass graft; Z95.5 Presence of coronary angioplasty implant and graft; E03.9 Hypothyroidism, unspecified; H54.8 Legal blindness, as defined in USA; W19.XXXA Unspecified fall, initial encounter; Y93.9 Activity, unspecified; Y92.129 Unspecified place in nursing home as the place of occurrence of the external cause
CPT/HCPCS: 36415; 70450; 71045; 72125; 76000; 80053; 82550; 82553; 82948; 83880; 84484; 85007; 85014; 85018; 85025; 85027; 85610; 85730; 86705; 86706; 86850; 86900; 86920; 87086; 87340; 90962; 93005; 93306; 97139; 99284; C1713; J0690; J1815; J2270; J2370; J2405; J7030; J7050; J7799; P9016; U0002

== ENCOUNTER 2020-06-17 11:40 | Inpatient (IN) | payer MEDICARE ==
[~2020-06-17] VITALS: Ht 154.9 cm; Wt 63.5 kg
[2020-06-17 12:16] LABS: BASOPHILS # (AUTO) 0.1 (0.0-0.1); BASOPHILS % 0.9 % (0.0-1.0); EOSINOPHILS # (AUTO) 0.2 (0.0-0.4); EOSINOPHILS % 2.3 % (0.0-6.0); HEMATOCRIT 30.3 % (34.2-44.1); LYMPHOCYTES # (AUTO) 1.2 (1.0-3.2); LYMPHOCYTES % 11.4 % (18.0-39.1); MEAN CORPUSCULAR HEMOGLOBIN 31.9 pg (28-32); MEAN CORPUSCULAR HGB CONC 29.7 g/dL (31-35); MEAN CORPUSCULAR VOLUME 107.4 fL (81-99); MONOCYTES # (AUTO) 0.5 (0.2-0.8); NEUTROPHILS # (AUTO) 8.2 (2.1-6.9); NEUTROPHILS % 79.9 % (38.7-80.0); PLATELET COUNT 263 x10e3/uL (140-360); RED BLOOD COUNT 2.82 x10e6/uL (3.6-5.1); RED CELL DISTRIBUTION WIDTH 16.6 % (11.7-14.4)
[2020-06-17 12:25] LABS: INR 1.22; PROTHROMBIN TIME 16.2 seconds (11.9-14.5)
[2020-06-17 12:26] LABS: PARTIAL THROMBOPLASTIN TIME 37.4 seconds (23.8-35.5)
[2020-06-17 12:34] LABS: ALBUMIN 2.9 g/dL (3.5-5.0); ALBUMIN/GLOBULIN RATIO 0.7 (0.8-2.0); ANION GAP 26.9 mmol/L (8-16); CALCIUM 8.6 mg/dL (8.4-10.2); CREATININE, SERUM 3.32 mg/dL (0.57-1.11); MAGNESIUM 2.1 MG/DL (1.3-2.1); POTASSIUM 4.9 mmol/L (3.5-5.1)
[2020-06-17 12:35] LABS: CREATINE KINASE MB 2.2 ng/mL (0-5.0)
[2020-06-17] MEDS ORDERED: ONDANSETRON HCL INJ 2MG/ML 2ML 2 MG/ML VIAL IV PRN (14:15)
[2020-06-17 14:35] LABS: EOSINOPHILS % (MANUAL) 2 % (0-7); LYMPHOCYTES % (MANUAL) 9 % (19-48); MONOCYTES % (MANUAL) 4 % (3.4-9.0); NEUTROPHILS % (MANUAL) 85 % (40-74)
[2020-06-17 16:17] VITALS: BP 139/41
[2020-06-17 17:31] VITALS: BP 139/41
[2020-06-17] MEDS ORDERED: SODIUM CHLORIDE 0.9% 1000ML 2,000 ML ONE (19:04)
[2020-06-17 20:00] VITALS: BP 98/43
[2020-06-17 20:53] VITALS: BP 98/43
[2020-06-18] VITALS (8 sets, daily range): BP systolic 99–111; BP diastolic 42–74
[2020-06-18 04:06] LABS: CREATINE KINASE MB 1.7 ng/mL (0-5.0)
[2020-06-18 06:27] LABS: BASOPHILS # (AUTO) 0.1 (0.0-0.1); BASOPHILS % 0.8 % (0.0-1.0); EOSINOPHILS # (AUTO) 0.2 (0.0-0.4); EOSINOPHILS % 2.3 % (0.0-6.0); LYMPHOCYTES # (AUTO) 0.7 (1.0-3.2); LYMPHOCYTES % 7.7 % (18.0-39.1); MEAN CORPUSCULAR HEMOGLOBIN 31.6 pg (28-32); MEAN CORPUSCULAR HGB CONC 29.6 g/dL (31-35); MEAN CORPUSCULAR VOLUME 106.7 fL (81-99); MONOCYTES # (AUTO) 0.7 (0.2-0.8); MONOCYTES % 6.9 % (4.4-11.3); NEUTROPHILS # (AUTO) 7.8 (2.1-6.9); NEUTROPHILS % 81.9 % (38.7-80.0); PLATELET COUNT 263 x10e3/uL (140-360); RED BLOOD COUNT 2.53 x10e6/uL (3.6-5.1); RED CELL DISTRIBUTION WIDTH 16.4 % (11.7-14.4)
[2020-06-18 06:53] LABS: ALBUMIN 2.4 g/dL (3.5-5.0); ALBUMIN/GLOBULIN RATIO 0.8 (0.8-2.0); ANION GAP 17.7 mmol/L (8-16); CREATININE, SERUM 1.92 mg/dL (0.57-1.11); POTASSIUM 3.7 mmol/L (3.5-5.1)
[2020-06-18 06:54] LABS: CREATINE KINASE MB 1.4 ng/mL (0-5.0)
[2020-06-18 08:19] LABS: POLYCHROMASIA FEW
[2020-06-18 08:20] LABS: ANISOCYTOSIS SLIGHT
[2020-06-18 08:21] LABS: PLATELET ESTIMATE ADEQUATE; PLATELET MORPHOLOGY COMMENT NORMAL
[2020-06-18] MEDS ORDERED: DEXTROSE 50% SYRINGE 50 ML IV PRN (09:45)
[2020-06-18] MEDS: INSULIN LISPRO 100 UNIT/1 ML 3ML VIAL SQ SCH ×5 (11:30→21:00)
[2020-06-18] MEDS ORDERED: ALBUMIN 25% 12.5GM 0.25 GM/ML BTL IV PRN (12:15)
[2020-06-18] MEDS ORDERED: SODIUM CHLORIDE 0.9% 1000ML 2,000 ML IV PRN (12:15)
[2020-06-18] MEDS: FUROSEMIDE 40 MG TAB PO SCH ×2 (12:49→16:56)
[2020-06-18] MEDS: LEVOTHYROXINE SODIUM 50 MCG TAB PO SCH (12:49)
[2020-06-18] MEDS: FENOFIBRATE 145 MG TAB PO SCH (12:49)
[2020-06-18] MEDS: PAROXETINE HCL 20 MG TAB PO SCH (13:31)
[2020-06-18 17:35] LABS: CREATINE KINASE MB 1.6 ng/mL (0-5.0)
[2020-06-18] MEDS: INSULIN GLARGINE 100 UNITS/ML VIAL SQ SCH (21:00)
[2020-06-18] MEDS ORDERED: TRAZODONE HCL 50 MG TAB PO PRN (21:00)
[2020-06-18] MEDS: ATORVASTATIN 10 MG TAB PO SCH (22:00)
[2020-06-19] VITALS (8 sets, daily range): BP systolic 101–121; BP diastolic 42–51
[2020-06-19] MEDS: LEVOTHYROXINE SODIUM 50 MCG TAB PO SCH (05:49)
[2020-06-19] MEDS: INSULIN LISPRO 100 UNIT/1 ML 3ML VIAL SQ SCH ×7 (08:00→20:28)
[2020-06-19] MEDS: PAROXETINE HCL 20 MG TAB PO SCH (09:23)
[2020-06-19] MEDS: FUROSEMIDE 40 MG TAB PO SCH ×2 (09:24→16:30)
[2020-06-19] MEDS: FENOFIBRATE 145 MG TAB PO SCH (09:24)
[2020-06-19] MEDS: ASPIRIN 81 MG CHEW TAB PO SCH (09:24)
[2020-06-19] MEDS: LIDOCAINE 4% PATCH TP SCH (12:10)
[2020-06-19] MEDS ORDERED: ONDANSETRON HCL 4 MG ORAL DISINTEGRATING TAB PO PRN (18:15)
[2020-06-19] MEDS: INSULIN GLARGINE 100 UNITS/ML VIAL SQ SCH (20:28)
[2020-06-19] MEDS: ATORVASTATIN 10 MG TAB PO SCH (20:36)
[2020-06-20 00:47] VITALS: BP 113/49
[2020-06-20] MEDS: LEVOTHYROXINE SODIUM 50 MCG TAB PO SCH (05:38)
[2020-06-20 05:45] VITALS: BP 110/50
[2020-06-20] MEDS: INSULIN LISPRO 100 UNIT/1 ML 3ML VIAL SQ SCH ×7 (08:30→21:00)
[2020-06-20 08:59] VITALS: BP 106/54
[2020-06-20] MEDS: FENOFIBRATE 145 MG TAB PO SCH (10:05)
[2020-06-20] MEDS: FUROSEMIDE 40 MG TAB PO SCH ×2 (10:05→17:44)
[2020-06-20] MEDS: LIDOCAINE 4% PATCH TP SCH (10:05)
[2020-06-20] MEDS: PAROXETINE HCL 20 MG TAB PO SCH (10:05)
[2020-06-20] MEDS: ASPIRIN 81 MG CHEW TAB PO SCH (10:05)
[2020-06-20 11:16] LABS: BASOPHILS # (AUTO) 0.1 (0.0-0.1); BASOPHILS % 0.7 % (0.0-1.0); EOSINOPHILS # (AUTO) 0.2 (0.0-0.4); EOSINOPHILS % 2.2 % (0.0-6.0); HEMATOCRIT 26.7 % (34.2-44.1); HEMOGLOBIN 8.2 g/dL (12.0-16.0); LYMPHOCYTES # (AUTO) 1.1 (1.0-3.2); LYMPHOCYTES % 9.8 % (18.0-39.1); MEAN CORPUSCULAR HEMOGLOBIN 31.7 pg (28-32); MEAN CORPUSCULAR HGB CONC 30.7 g/dL (31-35); MEAN CORPUSCULAR VOLUME 103.1 fL (81-99); MONOCYTES # (AUTO) 0.6 (0.2-0.8); MONOCYTES % 5.8 % (4.4-11.3); NEUTROPHILS # (AUTO) 8.7 (2.1-6.9); NEUTROPHILS % 81.1 % (38.7-80.0); PLATELET COUNT 225 x10e3/uL (140-360); RED BLOOD COUNT 2.59 x10e6/uL (3.6-5.1); RED CELL DISTRIBUTION WIDTH 16.2 % (11.7-14.4)
[2020-06-20] MEDS ORDERED: ALBUMIN 25% 12.5GM 0.25 GM/ML BTL IV PRN (11:30)
[2020-06-20] MEDS ORDERED: SODIUM CHLORIDE 0.9% 1000ML 2,000 ML IV PRN (11:30)
[2020-06-20] MEDS ORDERED: MANNITOL 25% 12.5GM/50 ML VIAL IV PRN (11:30)
[2020-06-20 11:32] LABS: ANION GAP 15.7 mmol/L (8-16); CREATININE, SERUM 2.87 mg/dL (0.57-1.11); POTASSIUM 3.7 mmol/L (3.5-5.1)
[2020-06-20 12:10] VITALS: BP 114/56
[2020-06-20 16:50] VITALS: BP 132/56
[2020-06-20 20:22] VITALS: BP 113/49
[2020-06-20] MEDS: INSULIN GLARGINE 100 UNITS/ML VIAL SQ SCH (21:00)
[2020-06-20] MEDS: ATORVASTATIN 10 MG TAB PO SCH (21:03)
[2020-06-21] VITALS (8 sets, daily range): BP systolic 101–112; BP diastolic 42–47
[2020-06-21] MEDS: LEVOTHYROXINE SODIUM 50 MCG TAB PO SCH (05:30)
[2020-06-21] MEDS: FUROSEMIDE 40 MG TAB PO SCH ×2 (09:14→19:33)
[2020-06-21] MEDS: ASPIRIN 81 MG CHEW TAB PO SCH (09:14)
[2020-06-21] MEDS: PAROXETINE HCL 20 MG TAB PO SCH (09:14)
[2020-06-21] MEDS: FENOFIBRATE 145 MG TAB PO SCH (09:14)
[2020-06-21] MEDS: INSULIN LISPRO 100 UNIT/1 ML 3ML VIAL SQ SCH ×6 (09:41→19:49)
[2020-06-21] MEDS: LIDOCAINE 4% PATCH TP SCH (12:59)
[2020-06-21] MEDS: INSULIN GLARGINE 100 UNITS/ML VIAL SQ SCH (19:50)
[2020-06-21] MEDS: ATORVASTATIN 10 MG TAB PO SCH (21:05)
[2020-06-22] VITALS: BP 106/49
[2020-06-22] MEDS: LEVOTHYROXINE SODIUM 50 MCG TAB PO SCH (05:08)
[2020-06-22 05:33] VITALS: BP 113/57
[2020-06-22] MEDS: INSULIN LISPRO 100 UNIT/1 ML 3ML VIAL SQ SCH ×3 (07:30→16:30)
[2020-06-22 08:21] VITALS: BP 108/57
[2020-06-22 09:10] VITALS: BP 108/57
[2020-06-22] MEDS: ASPIRIN 81 MG CHEW TAB PO SCH (09:27)
[2020-06-22] MEDS: FUROSEMIDE 40 MG TAB PO SCH ×2 (09:27→16:31)
[2020-06-22] MEDS: PAROXETINE HCL 20 MG TAB PO SCH (09:27)
[2020-06-22] MEDS: FENOFIBRATE 145 MG TAB PO SCH (09:28)
[2020-06-22 11:45] VITALS: BP 102/47
[2020-06-22] MEDS: LIDOCAINE 4% PATCH TP SCH (13:16)
[2020-06-22 15:57] VITALS: BP 112/54
== END 2020-06-22 19:05 | DRG 291 ==
LOC: ER 11:45 → ERHOLD 14:08 → MED/SURG2 15:48
PROVIDERS: ADMIT Internal Medicine; ATTEND Internal Medicine
PROC: 5A1D70Z Performance of Urinary Filtration, Intermittent, Less than 6 Hours Per Day (ICD-10-PCS; principal; 2020-06-17)
DX: I13.2 Hypertensive heart and chronic kidney disease with heart failure and with stage 5 chronic kidney disease, or end stage renal disease (principal); N18.6 End stage renal disease; E87.2 Acidosis; I69.354 Hemiplegia and hemiparesis following cerebral infarction affecting left non-dominant side; E11.22 Type 2 diabetes mellitus with diabetic chronic kidney disease; H54.8 Legal blindness, as defined in USA; I25.10 Atherosclerotic heart disease of native coronary artery without angina pectoris; Z95.1 Presence of aortocoronary bypass graft; Z95.810 Presence of automatic (implantable) cardiac defibrillator; E03.9 Hypothyroidism, unspecified; E11.51 Type 2 diabetes mellitus with diabetic peripheral angiopathy without gangrene; I25.5 Ischemic cardiomyopathy; K74.60 Unspecified cirrhosis of liver; D64.9 Anemia, unspecified; I50.9 Heart failure, unspecified; Z99.2 Dependence on renal dialysis; Z79.899 Other long term (current) drug therapy; Z74.09 Other reduced mobility; Z91.81 History of falling; Z20.822 Contact with and (suspected) exposure to COVID-19
CPT/HCPCS: 36415; 70450; 71045; 80048; 80053; 82550; 82553; 82948; 83735; 83880; 84484; 85025; 85610; 85730; 86704; 86706; 87340; 90962; 93005; 97139; 99284; J2150; J7030; J7799; U0002